=== PATIENT | female | born 1970 | race Caucasian/White ===

== ENCOUNTER 2016-10-13 17:58 | Inpatient (IN) ==
[2016-10-13 18:13] LABS: MANUAL DIFF NEEDED? NO
[2016-10-13 18:14] LABS: BASO% 0.4 % (0.0-0.8); EOS# 0.19 X1000 (0.0-0.7); EOS% 1.4 % (0.0-10.0); HEMATOCRIT 33.8 % (37.0-47.0); HEMOGLOBIN 11.6 g/dL (12.0-16.0); IMM GRAN# 0.02 X1000 (0.0-0.04); IMM GRAN% 0.1 % (0.0-0.5); LYMPH# 1.45 X1000 (1.2-3.4); LYMPH% 10.3 % (20.5-51.1); MCH 32.2 PG (27-31); MCHC 34.3 g/dL (33-37); MCV 93.9 FL (81-99); MONO# 1.36 X1000 (0.11-0.59); MONO% 9.7 % (1.7-9.3); MPV 11.1 FL (7.4-10.4); NEUT% 78.1 % (42.2-75.2); PLT 273 X1000 (130-400)
[2016-10-13 18:43] LABS: ALBUMIN 4.6 g/dL (3.5-5.0); CALCIUM 10.2 mg/dL (8.8-10.2); POTASSIUM 3.4 mmol/L (3.5-5.1); TOTAL BILIRUBIN 0.9 mg/dL (0.20-1.00)
[2016-10-13 18:54] LABS: FREE T4 1.73 ng/dL (0.93-1.70)
[2016-10-13 18:57] LABS: URINE CULTURE PL NEEDED? NO
[2016-10-13] MEDS ORDERED: NS 1,000 ML ONE (20:07)
[2016-10-13] MEDS ORDERED: XYLOCAINE 2% VISCOUS ONE ×2 (20:17→20:18)
[2016-10-13] MEDS ORDERED: NS 1,000 ML IV ONE (20:23)
[2016-10-13] MEDS ORDERED: XYLOCAINE 2% VISCOUS MT ONE (20:23)
[2016-10-13 20:36] LABS: UR AMPHETAMINES QUAL PRESUMPTIVE POSITIVE (NONE DETECT); UR BARBITUATES QUAL NONE DETECTED (NONE DETECT); UR BENZODIAZEPIN QUAL PRESUMPTIVE POSITIVE (NONE DETECT); UR COCAINE QUAL PRESUMPTIVE POSITIVE (NONE DETECT); UR MDMA QUAL NONE DETECTED (NONE DETECT); UR METHADONE QUAL NONE DETECTED (NONE DETECT); UR METHAMPHETAMINE QUAL PRESUMPTIVE POSITIVE (NONE DETECT)
[2016-10-13 20:37] LABS: BILIRUBIN URINE NEGATIVE (NEGATIVE); BLOOD URINE 4+ (NEGATIVE); CLARITY CLEAR (CLEAR); COLOR YELLOW; GLUCOSE URINE NEGATIVE (NEGATIVE); LEUKOCYTES URINE TRACE (NEGATIVE); NITRITE URINE NEGATIVE (NEGATIVE); PH URINE 6.5; PROTEIN URINE 2+(100 mg/dL) mg/dL (NEGATIVE); SP GRAVITY URINE 1.015; UR CANNABINOIDS QUAL PRESUMPTIVE POSITIVE (NONE DETECT); UR OPIATES QUAL PRESUMPTIVE POSITIVE (NONE DETECT); UR OXYCODONE QUAL NONE DETECTED (NONE DETECT); UR PCP QUAL NONE DETECTED (NONE DETECT); UR TCA QUAL NONE DETECTED (NONE DETECT); UROBILINOGEN URINE NORMAL
[2016-10-13 20:38] LABS: URINE SOURCE CLEAN CATCH
[2016-10-13 20:39] LABS: URINE EPITHELIAL CELLS <10 /HPF (<10); URINE RBC <10 /HPF (<10)
[2016-10-13 22:49] LABS: INR 0.96 (0.86-1.15); PROTIME 13.1 Seconds (12.1-15.5)
[2016-10-13 22:50] LABS: PTT PL 32.4 Seconds (22.6-43.9)
[2016-10-13 23:08] LABS: MAGNESIUM 2.2 mg/dL (1.5-2.7)
[2016-10-13 23:44] LABS: CK INDEX 0.8 (0.0-2.5); CK-MB 77.3 ng/mL (0.0-5.0)
[2016-10-14] MEDS ORDERED: NS 1,000 ML IV ONE (00:28)
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
[2016-10-14] MEDS: ZOFRAN IV PRN (01:31)
[2016-10-14] MEDS ORDERED: BLISTEX MEDICATED BERRY LIP BALM TOP PRN (02:05)
[2016-10-14 09:13] LABS: HEMATOCRIT 32.3 % (37.0-47.0); HEMOGLOBIN 10.8 g/dL (12.0-16.0); MCH 32.5 PG (27-31); MCHC 33.4 g/dL (33-37); MCV 97.3 FL (81-99); MPV 12.1 FL (7.4-10.4); RBC 3.32 XMIL (4.2-5.4)
--- NOTE | 2016-10-14 09:52 | Diag Imaging Result Document ---
PROCEDURE NAME: ABD/PELVIS/PULM ARTERIES - 10/13/2016 CT PULMONARY ANGIOGRAM WITH INTRAVENOUS CONTRAST, 10/13/2016: A CT dose reduction protocol was used. COMPARISON: None. TECHNIQUE: Axial CT images of the chest were obtained after administering intravenous contrast. Coronal MIP images were generated. FINDINGS: There is no pulmonary embolism. The lungs are clear and the heart size is normal. There is some extraluminal soft-tissue gas surrounding the esophagus and hypopharynx in the region of the larynx and thoracic inlet. This extends to the thyroid bed. No abnormal fluid collections. There is also some soft-tissue gas adjacent to the esophagus in the region of the subcarinal fossa and aortic arch. IMPRESSION: Small amount of soft-tissue gas surrounding the mid-upper esophagus. A small esophageal perforation is suspected. No fluid collections. CT ABDOMEN AND PELVIS WITH INTRAVENOUS CONTRAST, 10/13/2016: A CT dose reduction protocol was used. COMPARISON: None. FINDINGS: There are cholecystectomy clips. The liver, pancreas, spleen, adrenals, and kidneys are normal. No bowel obstruction or inflammation. Urinary bladder, uterus, and rectum are unremarkable. Bony structures are intact. IMPRESSION: Negative exam. [facility]
[2016-10-14 10:08] LABS: ALBUMIN 4.9 g/dL (3.5-5.0); CALCIUM 10.4 mg/dL (8.8-10.2); MAGNESIUM 2.2 mg/dL (1.5-2.7); POTASSIUM 3.5 mmol/L (3.5-5.1); TOTAL BILIRUBIN 0.6 mg/dL (0.20-1.00); TOTAL PROTEIN 8.1 g/dL (6.3-8.3)
[2016-10-14] MEDS: ZOSYN 3.375 GM/NS 3.375 GM/50 ML IVPB IV SCH ×3 (12:14→23:26)
[2016-10-14] MEDS: DIFLUCAN 150 MG/NS 150 MG/75 ML IVPB IV SCH (12:14)
--- NOTE | 2016-10-14 12:33 | Diag Imaging Result Document ---
PROCEDURE NAME: CT THORAX W/O CONTRAST - 10/14/2016 CT CHEST, 10/14/2016: A CT dose reduction protocol was used. COMPARISON: 10/13/2016 FINDINGS: Oral contrast was administered immediately prior to the exam. There is no evidence of contrast leak. The pneumomediastinum is stable from prior. No additional air leakage. The lungs are clear and the heart size is normal. IMPRESSION: Stable nonspecific mild pneumomediastinum. No evidence of contrast leak or additional air leak. [facility]
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
[2016-10-15] MEDS: ZOSYN 3.375 GM/NS 3.375 GM/50 ML IVPB IV SCH ×4 (04:52→23:05)
--- NOTE | 2016-10-15 10:08 | Diag Imaging Result Document ---
PROCEDURE NAME: CHEST-PORTABLE - 10/15/2016 ERECT AP PORTABLE CHEST, 10/15/2016 AT 0843 HOURS: FINDINGS: There is curvature of the thoracic spine with convexity to the right. There are nipple shadows bilaterally. The heart size and pulmonary vascularity are within normal limits. There is no evidence of pneumothorax or pleural fluid collection. The regional skeleton is otherwise apparently intact. IMPRESSION: No definite evidence of acute disease.
[2016-10-15] MEDS: DIFLUCAN 150 MG/NS 150 MG/75 ML IVPB IV SCH (11:58)
[2016-10-15] MEDS ORDERED: NS 1,000 ML ONE (12:13)
[2016-10-15] MEDS: NICODERM PATCH TD SCH (14:39)
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
--- NOTE | 2016-10-15 16:54 | Diag Imaging Result Document ---
PROCEDURE NAME: CT THORAX W/CONTRAST - 10/15/2016 CT THORAX WITH CONTRAST: FINDINGS: Exam performed with intravenous contrast. A dose reduction protocol was used. Compared with the without contrast exam of 10/14/2016. There is a small amount of pneumomediastinum. This has decreased compared to the previous exam. There is no abnormal mediastinal fluid collection identified. There are no obvious inflammatory changes identified in the mediastinum. There is mild scarring at the bilateral apices. There is a 4 mm faint nodular opacity at the anterior inferior right upper lobe which is stable. There is no consolidation or pleural effusion identified. There is no pneumothorax identified. IMPRESSION: 1. Small pneumomediastinum which has decreased compared to 10/14/2016. 2. Mild scarring at bilateral apices. Stable 4 mm faint nodular opacity at anterior inferior right upper lobe. 3. No pneumonia. No pneumothorax.
[2016-10-15] MEDS: ZOFRAN IV PRN ×2 (17:14→21:26)
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
--- NOTE | 2016-10-16 00:39 | PROGRESS NOTE ---
DATE: 10/15/2016 SUBJECTIVE: The patient without any new complaints. She does notice that she has got some swelling and soreness in her throat. Denies any chest pains otherwise. Denies any fevers or chills. Denies any other symptoms. Still states however that she is scared that she may hurt herself. OBJECTIVE: vital signs: Temperature 97, pulse 61, respiratory rate 19, BP 131/82, sat 100% on room air. General: Patient is awake, alert, oriented. She is currently in no real respiratory distress, pleasant to talk with. Neck: Supple. Cardiovascular: Regular rate. Chest: Relatively clear. LABS: Improved. WBCs down to 7, sodium 135, creatinine 1.2. Calcium 10.4. ASSESSMENT: 1. Acute hepatitis. AST 139, ALT 108, and unchanged. 2. Leukocytosis, resolved. 3. Anemia of chronic disease. 4. Hyponatremia, improved. 5. Hypokalemia, improved. 6. Esophageal perforation. CT today demonstrates small pneumomediastinum, which is actually decreased from yesterday. No pneumonia. PLAN: We will continue to watch her today. If she has no further symptoms in the morning, certainly can start allowing her to have some clear liquids, and we will continue to follow. We will recheck her labs in the morning. We will continue Zosyn prophylactically, as well as, Diflucan. Further orders as needed. cc: Jose Frias MD
[2016-10-16] MEDS: ZOSYN 3.375 GM/NS 3.375 GM/50 ML IVPB IV SCH ×3 (04:48→19:41)
[2016-10-16 06:34] LABS: MANUAL DIFF NEEDED? NO
[2016-10-16 06:45] LABS: BASO% 0.4 % (0.0-0.8); EOS# 0.25 X1000 (0.0-0.7); EOS% 4.6 % (0.0-10.0); HEMATOCRIT 35.3 % (37.0-47.0); HEMOGLOBIN 11.1 g/dL (12.0-16.0); IMM GRAN# 0.01 X1000 (0.0-0.04); IMM GRAN% 0.2 % (0.0-0.5); LYMPH# 0.96 X1000 (1.2-3.4); LYMPH% 17.6 % (20.5-51.1); MCH 31.4 PG (27-31); MCHC 31.4 g/dL (33-37); MONO% 9.2 % (1.7-9.3); MPV 10.8 FL (7.4-10.4); PLT 286 X1000 (130-400); RBC 3.53 XMIL (4.2-5.4)
[2016-10-16 07:38] LABS: AGAP 20; ALBUMIN 3.7 g/dL (3.5-5.0); ALKALINE PHOSPHATASE 45 U/L (32-104); BUN 8 mg/dL (8-22); CALCIUM 9.2 mg/dL (8.8-10.2); CHLORIDE 96 mmol/L (98-107); CK PROFILE 455 U/L (24-173); COSMO 275; GOT 69 U/L (10-30); GPT 50 U/L (10-36); SODIUM 140 mmol/L (136-145); TCO2 24 mmol/L (25-35); TOTAL PROTEIN 6.4 g/dL (6.3-8.3)
[2016-10-16 07:57] LABS: CK INDEX 0.8 (0.0-2.5); CK-MB 3.69 ng/mL (0.0-5.0)
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
[2016-10-16] MEDS: NICODERM PATCH TD SCH (12:48)
[2016-10-16] MEDS: 1/2 NS + KCL 20 MEQ 1,000 ML IV SCH ×2 (12:49→21:44)
[2016-10-16] MEDS: DIFLUCAN 150 MG/NS 150 MG/75 ML IVPB IV SCH (12:52)
[2016-10-17] MEDS: ZOSYN 3.375 GM/NS 3.375 GM/50 ML IVPB IV SCH ×2 (00:32→06:18)
[2016-10-17 03:16] LABS: MANUAL DIFF NEEDED? NO
[2016-10-17 03:19] LABS: BASO% 0.4 % (0.0-0.8); EOS# 0.29 X1000 (0.0-0.7); EOS% 4.3 % (0.0-10.0); HEMATOCRIT 33.3 % (37.0-47.0); HEMOGLOBIN 10.6 g/dL (12.0-16.0); IMM GRAN# 0.01 X1000 (0.0-0.04); IMM GRAN% 0.1 % (0.0-0.5); LYMPH# 1.31 X1000 (1.2-3.4); LYMPH% 19.6 % (20.5-51.1); MCH 31.6 PG (27-31); MCHC 31.8 g/dL (33-37); MCV 99.4 FL (81-99); MONO# 0.57 X1000 (0.11-0.59); MONO% 8.5 % (1.7-9.3); MPV 9.7 FL (7.4-10.4); NEUT% 67.1 % (42.2-75.2); PLT 314 X1000 (130-400); RBC 3.35 XMIL (4.2-5.4)
[2016-10-17 03:44] LABS: AGAP 9; ALBUMIN 3.9 g/dL (3.5-5.0); ALKALINE PHOSPHATASE 40 U/L (32-104); BUN 3 mg/dL (8-22); CALCIUM 8.9 mg/dL (8.8-10.2); CHLORIDE 99 mmol/L (98-107); COSMO 275; GOT 40 U/L (10-30); GPT 39 U/L (10-36); POTASSIUM 2.8 mmol/L (3.5-5.1); SODIUM 138 mmol/L (136-145); TCO2 30 mmol/L (25-35); TOTAL PROTEIN 6.1 g/dL (6.3-8.3)
[2016-10-17] MEDS ORDERED: KLOR-CON PO ONE (06:00)
[2016-10-17] MEDS: 1/2 NS + KCL 20 MEQ 1,000 ML IV SCH (06:18)
[2016-10-17] MEDS: NICODERM PATCH TD SCH (09:16)
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
[2016-10-17 14:30] VITALS: BP 113/89
[2016-10-17] MEDS ORDERED: AUGMENTIN PO SCH (21:00)
[2016-10-18] MEDS ORDERED: DIFLUCAN PO SCH (09:00)
== END 2016-10-17 14:35 | disposition home or self-care (01) ==
LOC: P.ED 17:58 → P.ICU 10-14 00:53 → SUATTDRO 10-14 00:53
PROVIDERS: ATTEND Internal Medicine

== ENCOUNTER 2018-08-29 19:24 | Inpatient (IN) ==
[2018-08-29 19:59] LABS: BASO# 0.05 X1000 (0.0-0.2); BASO% 0.4 % (0.0-0.8); EOS# 0.07 X1000 (0.0-0.7); EOS% 0.5 % (0.0-10.0); HEMOGLOBIN 9.2 g/dL (12.0-16.0); IMM GRAN# 0.04 X1000 (0.0-0.04); IMM GRAN% 0.3 % (0.0-0.5); LYMPH# 1.88 X1000 (1.2-3.4); LYMPH% 14.3 % (20.5-51.1); MCHC 31.7 g/dL (33-37); MCV 72.5 FL (81-99); MONO# 1.07 X1000 (0.11-0.59); MONO% 8.2 % (1.7-9.3); NEUT% 76.3 % (42.2-75.2); PLT 479 X1000 (130-400); RDW 20.1 % (11.5-14.5); WBC 13.11 X1000 (4.8-10.8)
[2018-08-29 20:02] LABS: BILIRUBIN URINE NEGATIVE (NEGATIVE); BLOOD URINE NEGATIVE (NEGATIVE); CLARITY CLEAR (CLEAR); COLOR YELLOW; GLUCOSE URINE NEGATIVE (NEGATIVE); KETONE URINE NEGATIVE (NEGATIVE); LEUKOCYTES URINE TRACE (NEGATIVE); NITRITE URINE NEGATIVE (NEGATIVE); PROTEIN URINE NEGATIVE (NEGATIVE); UROBILINOGEN URINE NORMAL
[2018-08-29 20:15] LABS: UR AMPHETAMINES QUAL NONE DETECTED (NONE DETECT); UR BARBITUATES QUAL NONE DETECTED (NONE DETECT); UR BENZODIAZEPIN QUAL NONE DETECTED (NONE DETECT); UR CANNABINOIDS QUAL NONE DETECTED (NONE DETECT); UR COCAINE QUAL NONE DETECTED (NONE DETECT); UR METHADONE QUAL NONE DETECTED (NONE DETECT); UR METHAMPHETAMINE QUAL NONE DETECTED (NONE DETECT); UR OPIATES QUAL PRESUMPTIVE POSITIVE (NONE DETECT); UR OXYCODONE QUAL NONE DETECTED (NONE DETECT); UR PCP QUAL NONE DETECTED (NONE DETECT); UR PROPOXYPHENE QUAL NONE DETECTED (NONE DETECT); UR TCA QUAL NONE DETECTED (NONE DETECT)
[2018-08-29 20:28] LABS: URINE WBC <10 /HPF (<10)
[2018-08-29 20:29] LABS: URINE BACTERIA 1+ /HFP; URINE CAST NONE SEEN /LPF; URINE CRYSTAL NONE SEEN /HPF; URINE EPITHELIAL CELLS <10 /HPF (<10); URINE SOURCE CLEAN CATCH; URINE YEAST NONE SEEN /HPF
[2018-08-29 20:37] LABS: AGAP 16; ALBUMIN 3.8 g/dL (3.5-5.0); ALKALINE PHOSPHATASE 408 U/L (32-104); BUN 11 mg/dL (8-22); CALCIUM 10.2 mg/dL (8.8-10.2); CHLORIDE 94 mmol/L (98-107); COSMO 267; CREATININE 0.7 mg/dL (0.5-0.9); ESTIMATED GFR > 60; GLUCOSE 123 mg/dL (70-104); GOT 105 U/L (10-30); GPT 61 U/L (10-36); LIPASE 33 U/L (13-60); POTASSIUM 4.3 mmol/L (3.5-5.1); SODIUM 133 mmol/L (136-145); TCO2 24 mmol/L (25-35); TOTAL PROTEIN 7.4 g/dL (6.3-8.3)
[2018-08-29 21:05] LABS: HYPOCHROM 2+; LYMPHS 13 % (21-51); MICROCYTOSIS 1+; MONO 8 % (1-9); SEGS 79 % (42-75)
[2018-08-29] MEDS ORDERED: NS 1,000 ML IV ONE (21:24)
[2018-08-29] MEDS ORDERED: MORPHINE IV ONE (21:54)
--- NOTE | 2018-08-29 22:00 | PROVIDER DOCUMENTATION ---
HPI-Abdominal Pain/GI Problem - General Chief Complaint: Abdominal Pain Stated Complaint: ABD PAIN Time Seen by Provider: 08/29/18 20:57 Allergies/Adverse Reactions: Patient Allergies Allergy/AdvReac Type Severity Reaction Status Date / Time No Known Allergies Allergy Verified 05/27/12 15:35 Home Medications: Home Medication List Medication Instructions Recorded Confirmed Last Taken Type NK [No Home Medications] 08/29/18 08/29/18 Unknown History - History of Present Illness-ABD Nature of Presenting Problems: reports that n/v x3 days now. constant pain of the left breast, left thorax pain, abd RUQ pain also for 3 days. unable to keep any PO food. +dry mouth. has taken ibuprofen for pain. denied any other problem. Review of Systems - Adult - REVIEW OF SYSTEMS - ADULT Constitutional: reports: see HPI Eyes: reports: no symptoms reported Ears, Nose, Mouth & Throat: reports: no symptoms reported Cardiovascular: reports: no symptoms reported Respiratory: reports: no symptoms reported Gastrointestinal: reports: no symptoms reported Genitourinary: reports: no symptoms reported Musculoskeletal: reports: no symptoms reported Integumentary: reports: no symptoms reported Neurological: reports: no symptoms reported Psychiatric: reports: no symptoms reported Endocrine: reports: no symptoms reported Hematologic/Lymphatic: reports: no symptoms reported Allergic/Immunologic: reports: no symptoms reported All Other Systems: Reviewed and Negative Past History - Adult - PAST MEDICAL HISTORY-ADULT Review of Records: reports: Old Records Reviewed, Nursing Assessment Review, Medications Reviewed, Social history reviewed & non-contributory. Major Childhood Illnesses: reports: denies history Cardiovascular: reports: denies history Respiratory: reports: denies history Gastrointestinal: reports: denies history Obstetrical/Gynecological: reports: denies history Genitourinary: reports: denies history Musculoskeletal: reports: denies history Neurological: reports: denies history Psychiatric: reports: anxiety Endocrine/Immune: reports: denies history Other Conditions: reports: denies history - PRIOR SURGERIES/PROCEDURES Surgical/Procedure History: reports: cholecystectomy - IMMUNIZATION STATUS Childhood Immunizations: See Nurse Assessment Flu Vaccine: See Nurse Assessment - FAMILY HISTORY Family History: reviewed, not pertinent - SOCIAL HISTORY Smoking: denies Substance Use: none/never Alcohol Use Frequency: never Living Situation: family Physical Exam-General - PHYSICAL EXAM-ADULT Initial Vital Signs Reviewed: Yes - CONSTITUTIONAL General Appearance: alert, no apparent distress, moderate distress (due to pain) , thin - EYES Eyes: PERRL/EOMI, pink conjunctivae - HEAD, EARS, NOSE, MOUTH & THROAT HENMT: normocephalic/atraumatic, moist mucous membranes, normal ENT inspection - NECK Neck: non-tender, full range of motion - RESPIRATORY Respiratory: chest non-tender, lungs clear, normal breath sounds - CARDIOVASCULAR Cardiovascular: normal peripheral pulses, regular rate, rhythm, no edema - CHEST (BREASTS) Chest/Breast: mass/lump noted (left breast) - GASTROINTESTINAL (ABDOMEN) Abdominal Exam: tenderness, hepatomegaly - MUSCULOSKELETAL Back Exam: no CVA tenderness, other (upper left thorax and left side thorax tenderness on palpation) Extremity: normal range of motion - SKIN Integumentary: normal color, normal turgor - PSYCHIATRIC Psych/Mental Status: tearful Progress - PLAN OF CARE/RESULTS Progress/Plan/Lab Results: Vital Signs - 8 hr 08/29/18 19:27 Temperature 98.5 F Pulse Rate 95 H Respiratory Rate 26 H Blood Pressure 139/91 O2 Sat by Pulse Oximetry 100 Laboratory Results - last 24 hr 08/29/18 08/29/18 08/29/18 19:40 19:40 19:50 WBC RBC Hgb Hct MCV MCH MCHC RDW Std Deviation Plt Count MPV Immature Gran % (Auto) Neut % (Auto) Lymph % (Auto) [place] % (Auto) Eos % (Auto) Baso % (Auto) Immature Gran # (Auto) Neut # (Auto) Lymph # (Auto) [place] # (Auto) Eos # (Auto) Baso # (Auto) Segmented Neutrophils Lymphocytes Monocytes Hypochromia Microcytosis Sodium Potassium Chloride Carbon Dioxide Anion Gap BUN Creatinine Estimated GFR/1.73 m2 BUN/Creatinine Ratio Glucose Calculated Osmolality Calcium Total Bilirubin AST ALT Alkaline Phosphatase Total Protein Albumin Globulin Albumin/Globulin Ratio Amylase 56 Lipase Urine Source CLEAN CATCH Urine Color YELLOW Urine Clarity CLEAR Urine pH 5.0 Ur Specific [place] 1.020 Urine Protein NEGATIVE Urine Ketones NEGATIVE Urine Blood NEGATIVE Urine Nitrite NEGATIVE Urine Bilirubin NEGATIVE Urine Urobilinogen NORMAL Urine Microscopic RBC Not Reportable Urine WBC TRACE A Urine Microscopic WBC <10 Ur Epithelial Cells <10 Urine Crystals NONE SEEN Urine Bacteria 1+ Urine Casts NONE SEEN Urine Yeast NONE SEEN Urine Glucose NEGATIVE Urine Opiates Screen PRESUMPTIVE POSITIVE A Ur Oxycodone Screen NONE DETECTED Urine Methadone Screen NONE DETECTED U Propoxyphene Qual NONE DETECTED Ur Barbituates Screen NONE DETECTED Ur Tricyclics Screen NONE DETECTED Ur Phencyclidine Scrn NONE DETECTED Ur Amphetamines Screen NONE DETECTED U Methamphetamines Scrn NONE DETECTED U Benzodiazepines Scrn NONE DETECTED Urine Cocaine Screen NONE DETECTED U Cannabinoids Screen NONE DETECTED 08/29/18 08/29/18 19:50 19:50 WBC 13.11 H RBC 4.00 L Hgb 9.2 L Hct 29.0 L MCV 72.5 L MCH 23.0 L MCHC 31.7 L RDW Std Deviation 20.1 H Plt Count 479 H MPV 10.0 Immature Gran % (Auto) 0.3 Neut % (Auto) 76.3 H Lymph % (Auto) 14.3 L [place] % (Auto) 8.2 Eos % (Auto) 0.5 Baso % (Auto) 0.4 Immature Gran # (Auto) 0.04 Neut # (Auto) 10.00 H Lymph # (Auto) 1.88 [place] # (Auto) 1.07 H Eos # (Auto) 0.07 Baso # (Auto) 0.05 Segmented Neutrophils 79 H Lymphocytes 13 L Monocytes 8 Hypochromia 2+ Microcytosis 1+ Sodium 133 L Potassium 4.3 Chloride 94 L Carbon Dioxide 24 L Anion Gap 16 BUN 11 Creatinine 0.7 Estimated GFR/1.73 m2 > 60 BUN/Creatinine Ratio 16 Glucose 123 H Calculated Osmolality 267 Calcium 10.2 Total Bilirubin 0.20 AST 105 H ALT 61 H Alkaline Phosphatase 408 H Total Protein 7.4 Albumin 3.8 Globulin 4.0 Albumin/Globulin Ratio 1.0 Amylase Lipase 33 Urine Source Urine Color Urine Clarity Urine pH Ur Specific [place] Urine Protein Urine Ketones Urine Blood Urine Nitrite Urine Bilirubin Urine Urobilinogen Urine Microscopic RBC Urine WBC Urine Microscopic WBC Ur Epithelial Cells Urine Crystals Urine Bacteria Urine Casts Urine Yeast Urine Glucose Urine Opiates Screen Ur Oxycodone Screen Urine Methadone Screen U Propoxyphene Qual Ur Barbituates Screen Ur Tricyclics Screen Ur Phencyclidine Scrn Ur Amphetamines Screen U Methamphetamines Scrn U Benzodiazepines Scrn Urine Cocaine Screen U Cannabinoids Screen Orders Category Date Time Status CT THORAX/ABD/PELVIS W/CON [CT] Stat Exams 08/29/18 21:53 Ordered AMYLASE [CHEM] Stat Lab 08/29/18 19:50 Completed CBC WITH DIFF [HEME] Stat Lab 08/29/18 19:50 Completed COMPREHENSIVE METABOLIC PANEL [CHEM] Stat Lab 08/29/18 19:50 Completed LIPASE [CHEM] Stat Lab 08/29/18 19:[address] W/POSS RFLX CULT [URINALYSIS] Stat Lab 08/29/18 19:40 Completed URINE CULTURE [RM] Routine Lab 08/29/18 20:30 Ordered URINE DRUG SCREEN PL Stat Lab 08/29/18 19:40 Completed 0.9% Sodium Chloride Inj [Ns] 1,000 ml Med 08/29/18 21:24 Active IV 999 mls/hr Morphine Med 08/29/18 21:54 Discontinued 4 mg IV NOW [facility] [address] , [address], [place] [address] Department of Imaging Patient: EDIL HERNANDEZ ADM Date: 08/29/18 MR#: [id number] : 1970 ADM Status: REG ER Age/Sex: 48/F Room/Bed: Loc: P.ED Ordering Physician: Radha Sharpe MD Family Physician: None,PCP Reason for Procedure: mets cancer ___ Signed EXAM: CT THORAX/ABD/PELVIS W/CON HISTORY: mets cancer TECHNIQUE: CT chest with intravenous contrast 2. CT abdomen and pelvis with intravenous contrast COMPARISON: Abdomen and pelvis 10/13/2016 chest from 10/15/2016 FINDINGS: CT chest: No pleural effusions. No cardiomegaly. No thoracic aortic aneurysm or dissection. There are several nodules scattered in the left upper and lower lobes which were not present on the prior study. Tiny nodules in the right upper lobe as well. No consolidation. No bronchiectasis. There are multiple lytic lesions throughout the chest and spine. Severe spinal stenosis at T8 due to encroachment into the canal. Abdomen and pelvis: There are multiple small scattered hypodense lesions in the liver. The gallbladder has been removed. Spleen is not enlarged. Normal pancreas, adrenal glands, and kidneys. No hydronephrosis. Normal aorta. Prominent stool throughout the colon. No bowel obstruction. The appendix has been removed. The urinary bladder is moderately distended and is normal. Normal uterus. There are scattered lytic lesions in the lumbar spine. IMPRESSION: Chest: 1. Bony metastases with severe spinal stenosis at T8 2. Scattered lung metastases Abdomen and pelvis: 1. Scattered liver metastases 2. Bony metastases. 3. Constipation 4. Cholecystectomy 5. Appendectomy This exam was performed using automated exposure control, adjustment of mA or kV according to patient size, and/or use of iterative reconstruction technique. Electronically signed by Juan Elaine 08/29/2018 10:52 PM 08/29/18 [id number] Interpreting Physician: Juan Elaine MD Dictated Date/Time: 08/29/18 [id number] cc: Radha Sharpe MD; None,PCP Result Diagrams: 08/29/18 19:50 08/29/18 19:50 Departure - Departure Date of Disposition Decision: 08/30/18 Time of Disposition Decision: 01:04 DIAGNOSIS: Metastasis Disposition: ADMITTED INPATIENT 09 Certified Medical Emergency: Emergent Condition: Fair - Critical Care Note This patient required my direct & personal management of CC.: No Attestation - Physician/ SAVANA Attestation Patient care was provided by Advanced Practice Provider:: No The physician spent face to face time with patient:: Yes Advanced Practice Provider documentation review:: Supervising physician onsite and consulted in the evaluation and care of this patient. The physician did have a face to face encounter with the patient.
--- NOTE | 2018-08-29 22:55 | Diag Imaging Result Doc PS360 ---
EXAM: CT THORAX/ABD/PELVIS W/CON HISTORY: mets cancer TECHNIQUE: CT chest with intravenous contrast 2. CT abdomen and pelvis with intravenous contrast COMPARISON: Abdomen and pelvis 10/13/2016 chest from 10/15/2016 FINDINGS: CT chest: No pleural effusions. No cardiomegaly. No thoracic aortic aneurysm or dissection. There are several nodules scattered in the left upper and lower lobes which were not present on the prior study. Tiny nodules in the right upper lobe as well. No consolidation. No bronchiectasis. There are multiple lytic lesions throughout the chest and spine. Severe spinal stenosis at T8 due to encroachment into the canal. Abdomen and pelvis: There are multiple small scattered hypodense lesions in the liver. The gallbladder has been removed. Spleen is not enlarged. Normal pancreas, adrenal glands, and kidneys. No hydronephrosis. Normal aorta. Prominent stool throughout the colon. No bowel obstruction. The appendix has been removed. The urinary bladder is moderately distended and is normal. Normal uterus. There are scattered lytic lesions in the lumbar spine. IMPRESSION: Chest: 1. Bony metastases with severe spinal stenosis at T8 2. Scattered lung metastases Abdomen and pelvis: 1. Scattered liver metastases 2. Bony metastases. 3. Constipation 4. Cholecystectomy 5. Appendectomy This exam was performed using automated exposure control, adjustment of mA or kV according to patient size, and/or use of iterative reconstruction technique. Electronically signed by Juan Elaine 08/29/2018 10:52 PM
[2018-08-30] MEDS ORDERED: DILAUDID IV ONE ×2 (01:02→02:40)
[2018-08-30] MEDS ORDERED: ZOFRAN IV ONE (01:02)
[2018-08-30] MEDS ORDERED: TORADOL PO ONE (02:47)
[2018-08-30] MEDS ORDERED: TORADOL IV ONE (03:07)
[2018-08-30] MEDS ORDERED: COMPAZINE IV PRN (03:27)
[2018-08-30 04:29] LABS: RETIC% 0.83 % (0.8-2.1); RETIC-HE 25.4 PG (28.2-36.6)
[2018-08-30] MEDS: DURAGESIC 25 MICROGM/HR PATCH TD SCH (04:32)
[2018-08-30] MEDS: NS 1,000 ML IV SCH ×3 (04:32→21:21)
[2018-08-30] MEDS: OXY IR PO PRN ×3 (04:33→18:58)
[2018-08-30] MEDS: TYLENOL PO SCH ×4 (04:33→21:21)
[2018-08-30] MEDS: LOVENOX SUBQ SCH (04:34)
[2018-08-30 04:56] LABS: MAGNESIUM 1.6 mg/dL (1.5-2.7)
[2018-08-30 05:16] LABS: FERRITIN 52 ng/mL (13-150)
[2018-08-30] MEDS: PRILOSEC PO SCH (05:59)
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
[2018-08-30] MEDS: DILAUDID IV PRN ×5 (07:10→21:22)
[2018-08-30] MEDS: MIRALAX PO SCH ×2 (10:10→21:21)
[2018-08-30] MEDS: NAPROSYN PO SCH ×2 (10:10→21:21)
[2018-08-30] MEDS: ZOFRAN IV PRN (14:41)
[2018-08-30] MEDS ORDERED: DECADRON IV ONE (16:13)
[2018-08-30] MEDS: VENOFER 200 MG in NS 100 ML IV SCH (18:13)
--- NOTE | 2018-08-30 18:43 | PROGRESS NOTE ---
DATE: 08/30/2018 SUBJECTIVE: Today, Ms. Shook refers to be hurting a lot, especially in the mid back. She also says she feels like electrical shocks into her legs. OBJECTIVE: Vital signs: Blood pressure is 126/81, pulse of 79, respiration is 18, temperature is 98.0. General: Ms. Shook is a 48-year-old, female who is in bed, who was not in any cardiopulmonary distress. Mucosa is pink and moist. Anicteric. Acyanotic. Neck: Supple. Chest: Clear to auscultation. Cardiovascular: Regular rate and rhythm. Abdomen: Soft, nontender. Bowel sounds present. Extremities: No pedal edema. Distal pulses are present. YARD ASSISTANT: Patient is awake, alert, oriented. She is able to lift both legs against gravity. However, Lasegue maneuver with each leg raising is positive with each one of them. The patient is not able to discriminate between gross and fine pinprick sensation. When I did vibration sense in both lower extremities were remarkably low and Babinski in both were downgoing. I was not able to elicit any sensory level, but it appears that she has bilateral lower extremity paresthesias. Integumentary: The patient also has a large palpable mass in the left breast, which almost involved the entire breast tissue. The nipple looks remarkably normal. There is no overlying skin changes noted and there was no drainage from the nipple. LABORATORY DATA: WBC is 13.11, hemoglobin is 9.2, platelet count of 479. Chemistry is also reviewed. The patient's ferritin is 52. IMAGING STUDIES: A CT scan of the chest, abdomen and pelvis shows bony metastases with severe spinal stenosis at T8. There is also scattered lung metastases in the abdomen. There is scattered liver metastasis. There is bony metastases. There is constipation, cholecystectomy and appendectomy. ASSESSMENT: 1. Large left breast mass with metastatic appearing lesions to both lungs, liver and bones; all suggestive of metastatic breast cancer. Hematology-Oncology have been consulted. I have personally spoken with Dr. Yi. 2. Intractable pain, secondary to the bony metastases. Patient is currently on opioid for pain management. 3. Severe spinal stenosis at T8. The CT scan reports severe spinal stenosis at T8 due to encroachment into the canal. The patient does have some paresthesias in the lower extremities. Occasionally, she refers to have some shocking sensation coming down in her legs. I was not able to elicit any sensory level and the patient denies having any issues passing her urine. I have discussed this with Hematology-Oncology and specifically with Dr. Yi. Recommendation is to start the patient on steroids and wait for Radiation Oncology to evaluate the patient on Saturday. I have also reached out to Neurosurgery in [place] and I am waiting a call from them. For now, the patient has been started on steroids, dexamethasone and surgery has also been consulted for possible biopsy. 4. Microcytic anemia, secondary to iron deficiencies. This will be replaced. 5. Clinical volume depletion. Will continue with gentle IV hydration. 6. Transaminitis, secondary to metastatic liver disease. cc: Kervin Armstrong MD Addendum: I have spoken to Dr. Mckenzie, neurosurgeon in [place]. He has looked at the images from his end. He thinks the lesion is anterior and that it will be hard to do any surgical procedure now. However he did say MRI needed to to be done of the entire spine. I told him We cant do MRI until Saturday He recommends to get oncology involve and I told him Dr Smith was on board. I told him my findings on physical exams: that there is no sensory level nor sphincter issues but some paresthesias. He recommends steroids which had already been started. He also recommends to call him back on Saturday after the MRIs so he can take a look at the images. He recommends to get back to him or his team ANNALISA if patient neurological condition changes. I have notified her nurse-- Ms Cadena. ROSITA
[2018-08-30] MEDS ORDERED: DECADRON PO SCH (20:00)
--- NOTE | 2018-08-30 20:13 | GENERAL SURGERY CONSULTATION ---
DATE: 08/30/2018 REASON FOR CONSULTATION: Breast mass. HISTORY OF PRESENT ILLNESS: This is a 48-year-old female who is admitted with a 2-week history of worsening chest pain radiating through her back. She also reports a left breast mass which has been there for many years and has been growing. She has never had it biopsied. She does report bilateral white nipple discharge. She has never had radiation treatment to her chest. She does have an aunt who had breast cancer. PAST MEDICAL HISTORY: Drug abuse, suicide attempts, schizophrenia, anxiety, depression. PAST SURGICAL HISTORY: Cholecystectomy, ovarian cystectomy, endometriosis surgery. FAMILY HISTORY: As above in HPI. SOCIAL HISTORY: She smokes a pack of cigarettes per day. Denies alcohol use, but has a multisubstance abuse history. HOME MEDICATIONS: None. ALLERGIES: No known drug allergies. REVIEW OF SYSTEMS: Ten systems reviewed and negative except as above, as well as she does have a tendency to fall and has had some sensation changes in her leg. I believe she said her left. PHYSICAL EXAMINATION: Temperature 98 degrees, pulse 79, blood pressure 126/81, O2 saturation 97%. General: She is a thin, somewhat undernourished-appearing female who looks her stated age, in no acute distress, but is somewhat anxious and tearful. HEENT: Normocephalic, atraumatic. Extraocular muscles intact. Pupils equal, round and reactive to light. Sclerae anicteric. Neck supple. No thyromegaly. CV: Regular rate and rhythm. Respiratory: Bilateral breath sounds. No work of breathing. Gastrointestinal soft, nontender, nondistended. On breast exam she has a large, fist-sized mass that is hard in the left breast, taking up most of all of the breast involving all quadrants. It is surprisingly somewhat mobile and does not appear to be attached to the chest wall. There is also a palpable lymph node in the left axilla. The right breast is somewhat nodular. There is a firm asymmetric density in the superior right breast from about 10 o'clock to 2 o'clock. I do not detect any lymphadenopathy in the right axilla. Extremities: No clubbing, cyanosis or edema. Skin warm and dry. No rash. LABORATORY DATA: White blood cell count 13, hemoglobin 9.2, hematocrit 29, platelet count 479,000. Electrolytes reviewed and unremarkable, except for mild elevation of LFTs: AST 105, ALT 61, alkaline phosphatase 408, total bilirubin 0.2. DIAGNOSTIC DATA: A chest, abdomen and pelvis CT scan shows multiple bony metastases which are lytic lesions throughout the chest and spine, with severe stenosis at T8 due to encroachment of the canal. There are multiple metastatic lesions in the liver as well as the lungs. The breasts were not well imaged. ASSESSMENT AND PLAN: A 48-year-old female with large left breast mass and lymphadenopathy, possible right breast mass and multiple metastatic lesions with spinal cord compression at T8. The neurosurgeon has been consulted at [place]. We are awaiting his evaluation. When that is complete, I am available for a needle biopsy of the left breast mass. We will follow that with a mammogram. cc: Stevenson Dudley MD
[2018-08-30] MEDS: LACTULOSE PO SCH (21:29)
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
[2018-08-30] MEDS: HUMULIN R SUBQ SCH (21:34)
[2018-08-30] MEDS: ATIVAN PO SCH (21:38)
[2018-08-31] MEDS: DILAUDID IV PRN ×6 (01:07→22:27)
[2018-08-31] MEDS: OXY IR PO PRN ×2 (03:10→23:40)
[2018-08-31] MEDS: TYLENOL PO SCH ×4 (03:10→22:23)
[2018-08-31] MEDS: DECADRON PO SCH ×4 (03:11→22:24)
[2018-08-31] MEDS: HUMULIN R SUBQ SCH ×4 (06:22→22:33)
[2018-08-31] MEDS: PRILOSEC PO SCH (06:22)
[2018-08-31] MEDS: MOVANTIK PO SCH (06:22)
[2018-08-31] MEDS: LOVENOX SUBQ SCH (06:22)
[2018-08-31 07:42] LABS: BASO# 0.01 X1000 (0.0-0.2); BASO% 0.1 % (0.0-0.8); HEMATOCRIT 25.9 % (37.0-47.0); HEMOGLOBIN 7.9 g/dL (12.0-16.0); LYMPH# 0.96 X1000 (1.2-3.4); MCH 22.8 PG (27-31); MCHC 30.5 g/dL (33-37); MCV 74.6 FL (81-99); MONO# 0.23 X1000 (0.11-0.59); MONO% 2.6 % (1.7-9.3); MPV 10.5 FL (7.4-10.4); NEUT# 7.56 X1000 (1.4-6.5); NEUT% 86.3 % (42.2-75.2); PLT 401 X1000 (130-400); RBC 3.47 XMIL (4.2-5.4); RDW 19.9 % (11.5-14.5); WBC 8.76 X1000 (4.8-10.8)
[2018-08-31 08:05] LABS: AGAP 12; ALB/GLOB RATIO 0.9; ALBUMIN 3.3 g/dL (3.5-5.0); ALKALINE PHOSPHATASE 304 U/L (32-104); BUN 8 mg/dL (8-22); CALCIUM 8.9 mg/dL (8.8-10.2); CHLORIDE 97 mmol/L (98-107); COSMO 265; CREATININE 0.5 mg/dL (0.5-0.9); ESTIMATED GFR > 60; GLUCOSE 129 mg/dL (70-104); GOT 84 U/L (10-30); GPT 47 U/L (10-36); POTASSIUM 4.6 mmol/L (3.5-5.1); SODIUM 132 mmol/L (136-145); TCO2 23 mmol/L (25-35); TOTAL BILIRUBIN 0.23 mg/dL (0.20-1.00)
[2018-08-31 08:28] LABS: ANISOCYTOSIS OCCASIONAL; BANDS 2 % (0-1); HYPOCHROM OCCASIONAL; LYMPHS 12 % (21-51); MICROCYTOSIS OCCASIONAL; MONO 6 % (1-9); SEGS 80 % (42-75)
[2018-08-31] MEDS: VENOFER 200 MG in NS 100 ML IV SCH (09:44)
[2018-08-31] MEDS: MIRALAX PO SCH ×2 (09:45→22:23)
[2018-08-31] MEDS: NAPROSYN PO SCH ×2 (09:45→22:23)
[2018-08-31] MEDS: LACTULOSE PO SCH ×2 (09:45→22:23)
--- NOTE | 2018-08-31 10:28 | GENERAL SURGERY CONSULTATION ---
DATE: 08/31/2018 SUBJECTIVE: The patient has had no acute events overnight. She has remained here and is awaiting evaluation by radiation oncology for her spinal stenosis. OBJECTIVE: Vital Signs: She is afebrile. Vital signs are stable. General: She is awake, alert, oriented x3. No acute distress. Breasts: Examination was deferred today. ASSESSMENT/PLAN: A 48-year-old female with a left breast mass, likely metastatic to multiple locations. If she remains in the hospital here tomorrow, I will plan a percutaneous core needle biopsy at the bedside. I discussed this with her and she is in agreement to proceed. cc: Stevenson Dudley MD
--- NOTE | 2018-08-31 15:28 | PROGRESS NOTE ---
DATE: 08/31/2018 SUBJECTIVE: This morning, Ms. Shook refers to be doing fairly okay. She denies any new complaints except persistent back pain. No neurological deficits and no sphincter abnormalities. Ms. Shook refers that she feels some numbness every now and then in both lower extremities but it is not constant. OBJECTIVE: Vital signs: Blood pressure is 138/74, pulse 87, respirations 18, temperature 97.8 degrees. General: Ms. Shook is a 48-year-old female. She is in bed. She is not in any cardiopulmonary distress. HEENT: Mucosa is pink and moist. Anicteric. Acyanotic. Neck: Supple. Chest: Clear to auscultation. No crepitations. No rhonchi. Cardiovascular: Regular rate and rhythm. No murmurs. No rubs. No gallops. GI: Abdomen is soft, nontender. Bowel sounds present. Extremities: No pedal edema. Distal pulses present. ADJUNCT INSTRUCTOR: Patient is awake, alert, and oriented. She is able to move both lower extremities against gravity and against resistance. Sensation is fairly unremarkable and Babinski both downward going. LABORATORY DATA: WBC is 8.76, hemoglobin is 7.9, platelet count of 401,000. Chemistry is also reviewed, unremarkable. Urine culture showed no pathogenic growth. ASSESSMENT: 1. Large left breast mass with multiple lesions in the lungs, bones, and liver, all suggestive of metastatic cancer presumably from the breast. The patient is pending a core biopsy tomorrow from Surgery. Hematology/Oncology and Radiation Oncology have all been consulted and patient will be seen tomorrow. 2. Intractable mid-thoracic pain secondary to bony metastases. We will continue with adequate pain management and the patient will be evaluated by Radiation Oncology tomorrow. 3. Severe spinal stenosis at T8 on CT scan. MRIs have all been ordered. The patient is currently on steroids. I did not find any remarkable neurological abnormality on her physical exam today. The patient was sitting up, legs folded up, and she is able to move extremities without any complaints. I was able to reach out to Neurosurgery yesterday and they did recommend also to continue steroids and get back with them if her condition gets any worse. 4. Microcytic anemia secondary to iron deficiency. This is being replaced. 5. Clinical volume depletion. Patient is on gentle IV fluids. 6. Transaminitis, likely due to metastatic liver disease. PLAN: So in general, Ms. Shook is a 48-year-old female who has been admitted since yesterday because of generalized pain but specifically to the back. Imaging studies have revealed metastatic lesions in the lungs, bones, and liver. The patient has a dense mass in the left breast which we think is the source of the metastatic lesions. She is pending a core biopsy tomorrow by Dr. Dudley. The patient is also pending evaluation by Radiation Oncology tomorrow to help with pain management, especially to the back. She is pending MRIs especially of the thoracic spine to rule out any concrete cord abnormalities. We will follow up closely with the recommendations from Oncology and Radiation Oncology. Of note, yesterday when I reached out to Dr. Mckenzie, the neurosurgeon in [place], he did make mention that if Ms. Shook's neurological status changes, we should notify them immediately. cc: Kervin Armstrong MD MTDD
[2018-08-31] MEDS: ATIVAN PO SCH (22:23)
[2018-08-31] MEDS: LEXAPRO PO SCH (22:24)
[2018-09-01] MEDS: DECADRON PO SCH ×4 (04:34→23:41)
[2018-09-01] MEDS: TYLENOL PO SCH ×4 (04:34→23:41)
[2018-09-01] MEDS: DILAUDID IV PRN ×3 (04:34→23:42)
[2018-09-01] MEDS: OXY IR PO PRN ×3 (06:08→18:19)
[2018-09-01] MEDS: PRILOSEC PO SCH (06:09)
[2018-09-01] MEDS: HUMULIN R SUBQ SCH ×3 (06:09→17:02)
[2018-09-01] MEDS: MOVANTIK PO SCH (06:09)
[2018-09-01] MEDS: LOVENOX SUBQ SCH (06:09)
[2018-09-01 07:25] LABS: BASO# 0.01 X1000 (0.0-0.2); BASO% 0.1 % (0.0-0.8); HEMATOCRIT 26.9 % (37.0-47.0); HEMOGLOBIN 8.2 g/dL (12.0-16.0); IMM GRAN# 0.16 X1000 (0.0-0.04); IMM GRAN% 0.9 % (0.0-0.5); LYMPH# 1.32 X1000 (1.2-3.4); LYMPH% 7.2 % (20.5-51.1); MCH 22.7 PG (27-31); MCHC 30.5 g/dL (33-37); MCV 74.5 FL (81-99); MONO# 1.04 X1000 (0.11-0.59); MONO% 5.7 % (1.7-9.3); MPV 10.5 FL (7.4-10.4); NEUT# 15.83 X1000 (1.4-6.5); NEUT% 86.1 % (42.2-75.2); PLT 466 X1000 (130-400); RBC 3.61 XMIL (4.2-5.4); RDW 20.1 % (11.5-14.5); WBC 18.36 X1000 (4.8-10.8)
[2018-09-01 07:40] LABS: AGAP 11; ALBUMIN 3.7 g/dL (3.5-5.0); ALKALINE PHOSPHATASE 314 U/L (32-104); BUN 12 mg/dL (8-22); CALCIUM 9.5 mg/dL (8.8-10.2); CHLORIDE 97 mmol/L (98-107); COSMO 273; CREATININE 0.6 mg/dL (0.5-0.9); ESTIMATED GFR > 60; GLUCOSE 126 mg/dL (70-104); GOT 86 U/L (10-30); GPT 49 U/L (10-36); POTASSIUM 4.5 mmol/L (3.5-5.1); SODIUM 136 mmol/L (136-145); TCO2 28 mmol/L (25-35); TOTAL BILIRUBIN 0.22 mg/dL (0.20-1.00); TOTAL PROTEIN 7.4 g/dL (6.3-8.3)
[2018-09-01] MEDS ORDERED: ATIVAN IV PRN (08:26)
[2018-09-01] MEDS: NAPROSYN PO SCH ×2 (08:27→23:41)
[2018-09-01] MEDS: LACTULOSE PO SCH ×2 (08:27→23:41)
[2018-09-01] MEDS: VENOFER 200 MG in NS 100 ML IV SCH (08:27)
[2018-09-01] MEDS: MIRALAX PO SCH ×3 (08:28→23:41)
[2018-09-01] MEDS: ATIVAN PO SCH (08:45)
[2018-09-01 08:51] LABS: BANDS 2 % (0-1); MONO 2 % (1-9); SEGS 96 % (42-75)
[2018-09-01 08:52] LABS: ANISOCYTOSIS 2+; HYPOCHROM 2+; MICROCYTOSIS 2+
[2018-09-01] MEDS ORDERED: XYLOCAINE-MPF 1% INJ ONE (10:02)
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
[2018-09-01] MEDS ORDERED: ATIVAN IV ONE ×2 (10:34→12:29)
[2018-09-01] MEDS ORDERED: ATIVAN ONE (11:11)
--- NOTE | 2018-09-01 11:24 | Diag Imaging Result Doc PS360 ---
3D DIAG BILATERAL, US BREAST COMPLETE UNILAT-LT 09/01/2018 Left breast ultrasound TECHNIQUE: Computer aided detection imaging was used. COMPARISON: None The breasts are dense. FINDINGS: The left breast is very dense with a somewhat lobulated area of relatively increased density medially containing numerous pleomorphic microcalcifications. There are two calcified nodules on the lateral aspect of the breast which are presumably related to benign disease. There are no dominant masses or grouped microcalcifications in the right breast to suggest malignancy. Ultrasonography was performed on the left demonstrating a poorly defined hypoechoic mass throughout most of the left breast with internal color Doppler flow. In addition to this there is an 11 mm pathologic-appearing left axillary node and a smaller 9 mm node with a fatty hilus more inferiorly. IMPRESSION: Highly suspicious lesion extensively within the left breast with pathological axillary adenopathy. ACR BI-RADS CATEGORY 5: HIGHLY SUGGESTIVE OF MALIGNANCY, APPROPRIATE ACTION SHOULD BE TAKEN. BIRAD5 NOTE: This facility is accredited by the [employer] for Mammography. A mammogram report should not delay biopsy if a dominant or clinically suspicious mass is present. Some cancers are not identified by mammography. Adenosis and dense breasts may obscure any underlying neoplasm. Electronically signed by Twan Peraza 09/01/2018 11:21 AM
[2018-09-01] MEDS ORDERED: BENADRYL IV PRN (12:30)
[2018-09-01] MEDS ORDERED: BENADRYL IV ONE (12:30)
[2018-09-01] MEDS ORDERED: SEROQUEL PO ONE (12:31)
--- NOTE | 2018-09-01 14:54 | Diag Imaging Result Doc PS360 ---
EXAM: BONE SCAN, TOTAL BODY HISTORY: Bony mets TECHNIQUE: Nuclear medicine bone scan COMPARISON: None. FINDINGS: 31.6 mCi MDP administered. Whole-body bone scan images obtained. There is symmetric activity in the upper and lower extremities. Normal activity in the skull and pelvis. Focal increased activity in three locations: A single mid to lower thoracic vertebra, a single mid posterior lower right rib, and either an upper lateral posterior right rib or right mid scapula. IMPRESSION: Focal activity in the lower spine consistent with the abnormality seen on the recent CT. The bone scan likely underestimates the amount of bony metastases. Electronically signed by Juan Elaine 09/01/2018 2:52 PM
--- NOTE | 2018-09-01 18:28 | OPERATIVE NOTE ---
PROCEDURE DATE: 09/01/2018 PREOPERATIVE DIAGNOSIS: Left breast mass. POSTOP DIAGNOSIS: Left breast mass. PROCEDURE: Core needle biopsy of left breast mass. SURGEON: Stevenson Dudley MD. ESTIMATED BLOOD LOSS: 5 mL. COMPLICATIONS: None apparent. SPECIMENS: Portions of left breast mass. TECHNIQUE: She was laid supine on her hospital bed. The skin was prepped with an alcohol swab. 1% lidocaine was used to anesthetize the skin. An 11 blade was used to make a small stab incision. The core biopsy needle was then advanced into the palpable mass and 3 separate cores were obtained. Steri-Strip dressing followed by gauze and tape were placed. She tolerated this well. There were no apparent complications. cc: Stevenson Dudley MD
--- NOTE | 2018-09-01 18:44 | PROGRESS NOTE ---
DATE: 09/01/2018 INTERVAL HISTORY: The patient with likely widely metastatic breast cancer. Workup in progress. Had significant anxiety this morning, which increased further during attempted MRI. Ativan was given but continued to have issues and MRI was eventually delayed. Giving additional medication with Ativan, Seroquel and Benadryl to attempt to calm the patient enough to get test done. Also planning breast biopsy and bone scans today. Aside from anxiety and persistent back pain there is no new complaints, no acute events overnight. Still with no complaints of weakness, numbness or other new neurologic finding. No loss of bowel or bladder control. REVIEW OF SYSTEMS: A 12-point review of systems negative except as per interval history. LABS: WBC 18.3, hemoglobin 8.2, hematocrit 26.9, platelets 456,000. Sodium 136, potassium 4.5, chloride 97, bicarbonate 28, BUN 12, creatinine 0.6, glucose 135, AST 86, ALT 49, alkaline phosphatase 314, bilirubin 0.22, albumin 3.7, total protein 7.4. Urinalysis unremarkable. Urine drug screen only positive for opiates. IMAGING: Breast ultrasound with high suspicious lesion extensively within the left breast with pathologic axillary adenopathy highly suggestive of malignancy. Initial CT chest, abdomen and pelvis with bony metastases to spine with stenosis at T8, scattered lung metastases, liver metastases, and other bony metastases. PHYSICAL EXAMINATION: Vital Signs: T-max 98.2, pulse 85, respirations 20, blood pressure 154/89, O2 sat 97% on room air. General: Moderately anxious appearing. Speech rapid, but not quite to the point of being pressured. Vitals as above. HEENT: Normocephalic and atraumatic. Moist mucous membranes. Neck: No cervical adenopathy. Cardiovascular: Slightly tachycardic. Regular rhythm. No murmurs, rubs or gallops. Pulmonary: Clear to auscultation bilaterally. No wheezing, rales or rhonchi noted. Abdomen: Soft, nontender. Bowel sounds positive. Slight hepatomegaly. Extremities: Peripheral pulses decreased but present. No clubbing or cyanosis. Neurologic: Cranial nerves grossly intact. No focal deficits identified. The patient ambulates without difficulty. No ataxia. Strength full throughout. Psychiatric: Anxious appearing as above. Speech rapid but appropriate. Intermittently somewhat tearful. Awake, alert and oriented x3. Skin: No new rashes or lesions identified. ASSESSMENT AND PLAN: 1. Large left breast mass with widespread metastases to lungs, bones, and liver: Oncology on board and I am attempting to get MRI of the spine to help plan likely radiation oncology treatment. Core biopsy at some point today by Surgery. If testing can all be performed today and lab work remains fairly unremarkable then may be able to be discharged tomorrow for further outpatient workup. 2. Anxiety and schizophrenia: The patient with some psychiatric history, but her recent diagnosis has seemed to cause her significant anxiety. Given a Ativan this morning with limited response. Given further Ativan, Benadryl and low-dose Seroquel to attempt to bring her anxiety under control enough to obtain above testing. We will give Seroquel as a 1-time dose, but if she has good response may continue that. No hallucinations or other obviously schizophrenic behavior here, but does reportedly have a diagnosis of schizophrenia. Further treatment based on response. 3. Significant back pain: Likely related to bony metastases. We will continue to adjust pain medications as needed. WE will likely get palliative radiation to this areas the results are obtained. 4. T8 spinal stenosis on CT: MRI is pending as above. The patient is on steroids. Does not appear to have any focal neurologic abnormality, and has no new neurologic complaints. Neurosurgery was contacted 2 days ago and they recommended to continue steroids, and to recontact them if any acute neurologic issue develops, but did not suggest immediate need for surgery. 5. Anemia: May be related to underlying malignancy but also iron deficient. Replacing iron. 6. Dehydration, improved with intravenous fluids: We will continue gentle intravenous fluids for now. 7. Transaminitis likely due to metastatic liver disease. No need for acute intervention at this time. 8. Deep vein thrombosis prophylaxis. Sequential compression devices if the patient remains in bed. Otherwise on hold for biopsy.
[2018-09-01] MEDS: LEXAPRO PO SCH (23:41)
[2018-09-01] MEDS: ZOFRAN IV PRN (23:41)
[2018-09-02] MEDS: HUMULIN R SUBQ SCH ×5 (00:08→21:27)
[2018-09-02] MEDS: DURAGESIC 25 MICROGM/HR PATCH TD SCH (02:34)
[2018-09-02] MEDS: OXY IR PO PRN (02:34)
[2018-09-02] MEDS: PRILOSEC PO SCH ×2 (05:10→06:13)
[2018-09-02] MEDS: LOVENOX SUBQ SCH ×2 (05:10→06:12)
[2018-09-02] MEDS: DECADRON PO SCH ×3 (05:10→18:17)
[2018-09-02] MEDS: DILAUDID IV PRN ×3 (05:10→21:18)
[2018-09-02] MEDS: TYLENOL PO SCH ×4 (05:11→21:27)
[2018-09-02] MEDS: MOVANTIK PO SCH ×2 (05:13→06:13)
[2018-09-02] MEDS: ATIVAN IV PRN ×2 (09:06→22:07)
[2018-09-02] MEDS: MIRALAX PO SCH ×2 (09:07→21:27)
[2018-09-02] MEDS: LACTULOSE PO SCH ×2 (09:07→21:27)
[2018-09-02] MEDS: VENOFER 200 MG in NS 100 ML IV SCH (09:07)
[2018-09-02] MEDS: NAPROSYN PO SCH ×2 (09:08→21:27)
--- NOTE | 2018-09-02 10:52 | CONSULTATION ---
DATE OF CONSULTATION: 09/01/2018 REASON FOR CONSULTATION: Breast cancer with bone metastasis and spinal cord compression. HISTORY OF PRESENT ILLNESS: Ms. Shook is a 48-year-old female who reports a multiple year history of a mass in the left breast. She reports noticing it as early as 1991 when she gave to her daughter. She never sought medical intervention. She presented to the emergency room on the of this month with complaints of left breast pain and midback pain as well as bilateral rib and flank pain. Upon admission, she was found to have a very large breast mass, and workup revealed multiple lesions in the lungs, bone and liver, all suggestive of metastatic cancer. On CT scan she was found to have severe spinal stenosis on T8 due to tumor. An MRI was obtained earlier today, but is not yet available for my review. She was placed on steroids. She had a biopsy earlier today. I have been consulted for consideration of palliative radiation therapy. PAST MEDICAL HISTORY: Schizophrenia. Anxiety. Depression. History of alcohol abuse. History of polysubstance abuse. Ovarian cyst. Skin cancer. Bright's disease. PAST SURGICAL HISTORY: Cholecystectomy. Ovarian cyst removal. Tonsillectomy. Excision of several cancerous moles. FAMILY HISTORY: Patient's maternal grandmother and several aunts had breast cancer. MEDICATIONS ON ADMISSION: None. ALLERGIES: No known drug allergies. SOCIAL HISTORY: The patient smokes a pack of cigarettes per day. Denies alcohol or drug use at this time. PHYSICAL EXAMINATION: General: Ms. Shook is lying comfortably in bed. She is confused and lethargic, and she has just returned from procedures and is still feeling the effects of the medications. Vitals: Per the hospital record. HEENT: Normocephalic, atraumatic. Sclerae are anicteric. Extraocular movements are intact. Neck: Supple. Lungs: Clear bilaterally. Heart: Regular in rate. Abdomen: Nondistended. Extremities: Reveal no clubbing, cyanosis, or edema. Neurological: Reveals no gross focal deficits. The patient was not alert enough to cooperate with a thorough examination. ASSESSMENT/PLAN: Presumed metastatic breast cancer. Biopsy results pending. I would like to review the patient's MRI before making final treatment recommendations, but agree with the recommendation for at least palliative radiation therapy to the T8 region. I have discussed this with the patient's family and they are all in agreement with proceeding with treatment. I will go ahead and get a simulation scheduled for Saturday and hopefully treatment will get started Saturday. cc: Karina Pearson MD
--- NOTE | 2018-09-02 13:31 | Diag Imaging Result Doc PS360 ---
EXAM: MRI BRAIN W/WO CONTRAST INDICATION: suspected metastatic breast cancer COMPARISON: None. FINDINGS: There is no evidence of acute infarct. There are a couple of tiny T2/FLAIR hyperintense foci in the centrum semiovale on the right suggesting trace white matter microangiopathy. The deep white matter signal is unremarkable, otherwise. There is no discrete intracranial mass, mass effect, or intracranial hemorrhage. There is no evidence of abnormal intracranial enhancement. There is bilateral maxillary sinus mucosal disease. Surrounding soft tissues and bony structures are unremarkable, otherwise. IMPRESSION: No evidence of intracranial metastatic disease. Electronically signed by Darrick Chiang 09/02/2018 1:29 PM
--- NOTE | 2018-09-02 13:35 | Diag Imaging Result Doc PS360 ---
MRI THORACIC SPINE W/WO CON - 09/01/2018 INDICATION: T8 lesion encroaching the canal COMPARISON: CT from 08/29/2018 FINDINGS: Alignment is anatomic. There is a high-grade compression fracture at apparently T7. There is abnormal bony signal throughout, with a high degree of enhancement. There is a large area of posterior bony retropulsion particularly at the left side. This causes severe compression of the thoracic spinal cord. Otherwise signal of the cord is normal. There is moderately severe patient motion artifact. There are several nodular enhancing areas in bone marrow signal abnormalities throughout the spine diffusely. This is compatible with bony metastatic disease. IMPRESSION: 1. High-grade compression fracture at T7 with significant retropulsion into the central canal. This causes severe central canal stenosis. The thoracic cord is otherwise preserved. 2. Extensive bony abnormalities compatible with metastatic disease. Electronically signed by Damion Grewal 09/02/2018 1:32 PM
--- NOTE | 2018-09-02 13:55 | Diag Imaging Result Doc PS360 ---
EXAM: MRI LUMBAR SPINE W/WO CONTRAST INDICATION: paresthesias. r/o cord lesion TECHNIQUE: COMPARISON: None. FINDINGS: There is excessive motion artifact on several sequences, which may limit evaluation of fine anatomical details. There are multiple small enhancing foci involving the lumbar vertebrae consistent with known diffuse skeletal metastatic disease. There is no epidural extension involving the lumbar spine. There is no abnormal enhancement involving the central canal. The conus medullaris is unremarkable. There are also endplate degenerative Modic signal changes at L4-5 and L5-S1. There is disc desiccation and loss of disc space height at these levels. This appears to be most significant at L5-S1 where there is mild central canal narrowing and mild to moderate neuroforaminal stenosis. IMPRESSION: Multiple small metastatic lesions throughout the lumbar spine with no epidural extension at the lumbar spine. Electronically signed by Darrick Chiang 09/02/2018 1:53 PM
--- NOTE | 2018-09-02 15:58 | PROGRESS NOTE ---
DATE: 09/02/2018 SUBJECTIVE: Patient reports she has very excruciating back pain in the thoracic spine. It was reported by the nursing staff that this patient was supposed to be sent to [facility] to receive stimulation of the spine as per Dr. Pearson's indication. She refused to go there. Now when I went to see her she is complaining of pain. OBJECTIVE: Vital Signs: Temperature 98.7 degrees, heart rate 76, respiratory rate 13, blood pressure 129/85, O2 saturation 96% on room air. General examination: This is a chronically ill appearing, 48-year-old female lying in bed, in no acute distress. HEENT: Head is normocephalic, atraumatic. Mucous membranes dry. Neck: No JVD noted. No carotid bruits. No lymphadenopathy. No thyromegaly. Cardiovascular: S1, S2 heard. No murmurs, gallops, or rubs. Regular rate and rhythm. Respiratory: Clear bilaterally to auscultation. No work of breathing or using accessory muscles. Abdomen: Soft, nontender to palpation. Bowel sounds present. No organomegaly. Extremities: No clubbing, cyanosis, or edema. Peripheral pulses present in both legs. Neurological: Patient is alert and oriented x3. Moves 4 extremities. Patient is very anxious and complaining of pain, very tearful. DIAGNOSTIC STUDIES: Thoracic MRI done yesterday showed high grade compression fracture at T7 with significant retropulsion into the central canal that is causing severe central canal stenosis but the thoracic cord is otherwise preserved. There is also extensive bony abnormalities compatible with metastatic disease. Brain MRI did not show any evidence of intracranial metastases. Lumbar MRI showed multiple small metastatic lesions throughout the lumbar spine with no epidural extension of the lumbar spine. ASSESSMENT AND PLAN: 1. Large left breast mass with widespread metastasis to lung, spine, and liver. Oncology is on board. We have gotten an MRI of the brain, lumbar spine, and thoracic spine with results as above. At this point, what we are going to do is to talk with the patient to explain in depth the advantage going to [facility] to have that therapy recommended by Dr. Pearson. At this time patient agreed with the plan. 2. Anxiety and schizophrenia. She is not receiving anything for that condition. We will start Seroquel 25 mg p.o. b.i.d. We will continue with citalopram and will do Ativan p.r.n. We will go from there. 3. Severe back pain, likely related to bony metastasis. Will continue in this case with fentanyl patch and Dilaudid that at this point she is getting 2 mg to 3 hours p.r.n. The patient is also getting oxycodone 10 mg q.4 hours. We will continue with same management. 4. Anemia of chronic disease. Most likely related to underlying malignancy. We will continue to monitor CBC. 5. Transaminitis, likely secondary to metastatic liver disease. At this point, we will continue to monitor. No need for any intervention. 6. Deep vein thrombosis prophylaxis. On SCDs. 7. Disposition. At this point, I had a long conversation with this patient explaining the advantage of receiving that therapy recommended but Dr. Pearson and patient has agreed to proceed. cc: Collin Fernández MD
[2018-09-02] MEDS: LEXAPRO PO SCH (21:27)
[2018-09-03] MEDS: DECADRON PO SCH ×4 (00:12→18:08)
[2018-09-03] MEDS: OXY IR PO PRN ×5 (00:21→21:52)
[2018-09-03] MEDS: TYLENOL PO SCH ×4 (03:18→21:53)
[2018-09-03] MEDS: DILAUDID IV PRN ×4 (03:19→14:41)
[2018-09-03] MEDS: ATIVAN IV PRN ×3 (03:37→16:25)
[2018-09-03] MEDS: HUMULIN R SUBQ SCH ×4 (06:39→21:52)
[2018-09-03] MEDS: PRILOSEC PO SCH (06:47)
[2018-09-03] MEDS: MOVANTIK PO SCH (06:48)
[2018-09-03] MEDS: LOVENOX SUBQ SCH (06:48)
[2018-09-03] MEDS: MIRALAX PO SCH ×2 (09:28→21:52)
[2018-09-03] MEDS: LACTULOSE PO SCH ×2 (09:28→21:52)
[2018-09-03] MEDS: NAPROSYN PO SCH ×2 (09:29→21:52)
[2018-09-03 11:53] LABS: IRON SATURATION 26 %; TIBC 304 ug/dL; TOTAL IRON 78 ug/dL (49-151); UNBOUND IRON 226 ug/dL (112-346)
--- NOTE | 2018-09-03 14:12 | PROGRESS NOTE ---
DATE: 09/03/2018 SUBJECTIVE: Patient is complaining of lower back pain. The patient is supposed to go to [facility] for a simulation of radiation as per Dr. Pearson's recommendation. OBJECTIVE: Vital Signs: Temperature 97.6, heart rate 71, respiratory rate 16, blood pressure 129/79. O2 sat 98% on room air EXAMINATION: General: This is a chronically ill-looking 48-year-old female lying in bed, in no acute distress. HEENT: Head is normocephalic, atraumatic. Neck: No JVD noted. No carotid bruits. No lymphadenopathy. No thyromegaly. Cardiovascular: S1, S2 heard. No murmurs, gallops or rubs. Regular rate and rhythm. Respiratory: Clear bilaterally to auscultation. No work of breathing. Not using accessory muscles. Abdomen: Soft, nontender to palpation. Bowel sounds present. No organomegaly. Extremities: No clubbing, cyanosis or edema. Peripheral pulses present in both legs. Neurologic: Patient alert and oriented x 3. The patient is very tearful. Moves 4 extremities. LABORATORY DATA: Reviewed. ASSESSMENT AND PLAN: 1. Large left breast mass. Cancer with widespread metastasis to lungs, spine and liver. Oncology following this patient. The patient also has severe back pain secondary to bony metastases and those lesions are going to be treated with radiotherapy. Patient is going to [facility] for that. We will follow recommendations from Oncology Radiation therapy. 2. Anxiety and schizophrenia. Patient has been started on Ativan p.r.n. and also Seroquel. Will continue with same management. 3. Anemia of chronic disease, is stable. Most likely related to malignancy. We will continue to monitor. 4. Transaminitis secondary to metastatic liver disease. Aware. We will continue to monitor. 5. DVT prophylaxis. On SCDs. DISPOSITION: At this point, we are following lead from Oncology. cc: Collin Fernández MD
[2018-09-03 17:02] LABS: BASO# 0.04 X1000 (0.0-0.2); BASO% 0.2 % (0.0-0.8); HEMATOCRIT 27.6 % (37.0-47.0); HEMOGLOBIN 8.4 g/dL (12.0-16.0); IMM GRAN# 0.26 X1000 (0.0-0.04); IMM GRAN% 1.2 % (0.0-0.5); MCH 23.1 PG (27-31); MCHC 30.4 g/dL (33-37); MCV 75.8 FL (81-99); MONO# 1.66 X1000 (0.11-0.59); MONO% 7.8 % (1.7-9.3); MPV 10.1 FL (7.4-10.4); NEUT# 17.88 X1000 (1.4-6.5); NEUT% 83.8 % (42.2-75.2); PLT 481 X1000 (130-400); RBC 3.64 XMIL (4.2-5.4); RDW 21.2 % (11.5-14.5); WBC 21.34 X1000 (4.8-10.8)
[2018-09-03 17:20] LABS: AGAP 9; BUN 16 mg/dL (8-22); CALCIUM 9.1 mg/dL (8.8-10.2); CHLORIDE 90 mmol/L (98-107); COSMO 258; CREATININE 0.6 mg/dL (0.5-0.9); ESTIMATED GFR > 60; GLUCOSE 99 mg/dL (70-104); POTASSIUM 4.2 mmol/L (3.5-5.1); SODIUM 128 mmol/L (136-145); TCO2 29 mmol/L (25-35)
[2018-09-03] MEDS: LEXAPRO PO SCH (21:52)
[2018-09-04] MEDS: DECADRON PO SCH ×4 (00:36→18:00)
[2018-09-04] MEDS: DILAUDID IV PRN ×5 (01:52→17:48)
[2018-09-04] MEDS: TYLENOL PO SCH ×5 (01:52→21:32)
[2018-09-04] MEDS: LOVENOX SUBQ SCH ×2 (05:38→07:42)
[2018-09-04] MEDS: MOVANTIK PO SCH ×2 (05:38→07:42)
[2018-09-04] MEDS: PRILOSEC PO SCH ×2 (05:38→07:43)
[2018-09-04] MEDS: HUMULIN R SUBQ SCH ×4 (06:10→21:35)
[2018-09-04 08:29] LABS: AGAP 9; BUN 15 mg/dL (8-22); CALCIUM 9.3 mg/dL (8.8-10.2); CHLORIDE 91 mmol/L (98-107); COSMO 266; CREATININE 0.5 mg/dL (0.5-0.9); ESTIMATED GFR > 60; GLUCOSE 104 mg/dL (70-104); POTASSIUM 4.2 mmol/L (3.5-5.1); SODIUM 132 mmol/L (136-145); TCO2 32 mmol/L (25-35)
[2018-09-04 08:31] LABS: MCH 23.1 PG (27-31); MCV 76.9 FL (81-99); MPV 10.8 FL (7.4-10.4); RBC 3.9 XMIL (4.2-5.4); RDW 21.9 % (11.5-14.5); WBC 19.27 X1000 (4.8-10.8)
[2018-09-04] MEDS: OXY IR PO PRN ×3 (08:47→21:32)
[2018-09-04] MEDS: NAPROSYN PO SCH ×2 (08:48→21:32)
[2018-09-04] MEDS: MIRALAX PO SCH ×2 (08:48→21:31)
[2018-09-04] MEDS: LACTULOSE PO SCH ×2 (08:48→21:32)
[2018-09-04] MEDS: ATIVAN IV PRN (12:16)
--- NOTE | 2018-09-04 14:42 | PROGRESS NOTE ---
DATE: 09/04/2018 SUBJECTIVE: The patient continues to complain of lower back pain but she is barely able to stay awake. She is sleeping in front of me. OBJECTIVE: Vital Signs: Temperature 96.9 degrees, heart rate 72, respiratory rate 16, blood pressure 120/78, O2 saturation 97% on room air. General: This is 48-year-old, chronically ill- looking and frail, female lying in bed, in no acute distress. HEENT: Head is normocephalic, atraumatic. Neck: No JVD noted. No carotid bruits. No lymphadenopathy. Cardiovascular: S1, S2 heard. No murmurs, gallops, or rubs. Regular rate and rhythm. Respiratory: Clear bilaterally to auscultation. No work of breathing or using accessory muscles. Abdomen: Soft. Nontender to palpation. Bowel sounds present. No organomegaly. Extremities: No clubbing, cyanosis, or edema. Peripheral pulses present in both legs. Neurological: The patient is very sleepy, barely able to stay awake. Patient moves 4 extremities spontaneously. LABORATORY DATA: Reviewed. ASSESSMENT AND PLAN: 1. Large left breast cancer with widespread metastases to lungs, spinal, and liver. Oncology is following this patient. Also Oncology Radiation, Dr. Pearson, is following this patient. The plan for her is to do radiation therapy in [facility]. She was there this morning. At this point, we will continue recommendations from her. 2. Anxiety and schizophrenia. Patient is on Ativan p.r.n. but it is going to be held if patient continues to be so sleepy. 3. Anemia of chronic disease. Stable. We will continue with the same management. 4. Transaminitis secondary to metastatic liver disease. Aware. We will continue to monitor. 5. Severe back pain secondary to metastases. The patient has been already warned that if she is very sleepy she is not going to be given any pain medications. 6. Disposition. We will continue to monitor this patient closely. cc: Collin Fernández MD
[2018-09-04] MEDS: LEXAPRO PO SCH (21:32)
[2018-09-05] MEDS: ATIVAN IV PRN ×2 (01:04→07:57)
[2018-09-05] MEDS: DECADRON PO SCH ×4 (01:05→17:45)
[2018-09-05] MEDS: TYLENOL PO SCH ×2 (05:11→08:02)
[2018-09-05] MEDS: DURAGESIC 25 MICROGM/HR PATCH TD SCH (05:18)
[2018-09-05] MEDS: DILAUDID IV PRN ×4 (05:18→19:51)
[2018-09-05] MEDS: HUMULIN R SUBQ SCH ×4 (06:30→19:59)
[2018-09-05] MEDS: LOVENOX SUBQ SCH (06:31)
[2018-09-05] MEDS: MOVANTIK PO SCH (06:31)
[2018-09-05] MEDS: PRILOSEC PO SCH (06:31)
[2018-09-05] MEDS: LACTULOSE PO SCH ×2 (08:02→20:00)
[2018-09-05] MEDS: MIRALAX PO SCH ×2 (08:02→19:59)
[2018-09-05] MEDS: NAPROSYN PO SCH ×3 (08:02→20:00)
[2018-09-05 08:09] LABS: HEMATOCRIT 30.6 % (37.0-47.0); HEMOGLOBIN 9.4 g/dL (12.0-16.0); MCH 23.6 PG (27-31); MCHC 30.7 g/dL (33-37); MCV 76.9 FL (81-99); MPV 10.4 FL (7.4-10.4); RBC 3.98 XMIL (4.2-5.4); RDW 23.3 % (11.5-14.5); WBC 19.85 X1000 (4.8-10.8)
[2018-09-05 08:50] LABS: AGAP 11; BUN 19 mg/dL (8-22); CALCIUM 9.3 mg/dL (8.8-10.2); CHLORIDE 93 mmol/L (98-107); COSMO 271; CREATININE 0.6 mg/dL (0.5-0.9); ESTIMATED GFR > 60; GLUCOSE 100 mg/dL (70-104); POTASSIUM 4.8 mmol/L (3.5-5.1); SODIUM 134 mmol/L (136-145); TCO2 30 mmol/L (25-35)
[2018-09-05] MEDS: OXY IR PO PRN ×2 (16:57→22:48)
--- NOTE | 2018-09-05 17:31 | PROGRESS NOTE ---
DATE: 09/05/2018 SUBJECTIVE: The patient continues to complain of low back pain. She continues to be very sleepy. She is barely able to stay awake. Family is at bedside. OBJECTIVE: Vital Signs: Temperature 96.9 degrees, heart rate 78, respiratory rate 16, blood pressure 109/76, O2 saturation 100% on room air. General: This is a chronically ill-looking and malnourished 48-year-old female lying in bed, in no acute distress. HEENT: Head is normocephalic, atraumatic. Neck: No JVD noted. No carotid bruits. No lymphadenopathy. No thyromegaly. Cardiovascular: S1, S2 heard. No murmurs, gallops, or rubs. Regular rate and rhythm. Respiratory: Clear bilaterally to auscultation. No work of breathing or using accessory muscles. Abdomen: Soft. Nontender to palpation. Bowel sounds present. No organomegaly. Extremities: No clubbing, cyanosis, or edema. Peripheral pulses present in both legs. Neurological: Patient is very sleepy, barely able to stay awake. The patient continues to report every time he she is awake that she is hurting. LABORATORY DATA: Reviewed. ASSESSMENT AND PLAN: 1. Large left breast cancer, with widespread metastasis to lungs, spine, and liver. Oncology is following with this patient. Also, the patient is going to have radiotherapy here in the hospital. Also, her oncologist, Dr. Yi, has been consulted. We will follow recommendations. 2. Schizophrenia. Patient is on Ativan p.r.n. We will hold of course if this patient continues to be so sleepy and confused. 3. Anemia of chronic disease. Stable. We will continue with same management. 4. Transaminitis, secondary to metastatic liver disease. We will continue to monitor. 5. Severe back pain secondary to metastases. 6. At this point, I am not going to provide even the medication that she has been on if she continues to be sleepy, and I explained to her and the family who is at bedside, the high risk of respiratory arrest if we continue to provide those medications to her. 7. Disposition. We will continue to monitor this patient closely. cc: Collin Fernández MD
[2018-09-05] MEDS: LEXAPRO PO SCH ×2 (19:53→20:00)
[2018-09-06] MEDS: DECADRON PO SCH ×4 (00:16→17:28)
[2018-09-06] MEDS: DILAUDID IV PRN ×7 (00:17→21:00)
[2018-09-06] MEDS: HUMULIN R SUBQ SCH ×4 (06:17→21:00)
[2018-09-06] MEDS: OXY IR PO PRN (06:18)
[2018-09-06] MEDS: PRILOSEC PO SCH (06:18)
[2018-09-06] MEDS: MOVANTIK PO SCH (06:18)
[2018-09-06] MEDS: LOVENOX SUBQ SCH (06:19)
[2018-09-06] MEDS: ATIVAN IV PRN (06:59)
[2018-09-06 07:40] LABS: HEMOGLOBIN 9.1 g/dL (12.0-16.0); MCH 24.6 PG (27-31); MCHC 31.4 g/dL (33-37); MCV 78.4 FL (81-99); MPV 10.4 FL (7.4-10.4); RBC 3.7 XMIL (4.2-5.4); RDW 24.2 % (11.5-14.5); WBC 21.89 X1000 (4.8-10.8)
[2018-09-06 07:43] LABS: AGAP 9; BUN 19 mg/dL (8-22); CALCIUM 9.3 mg/dL (8.8-10.2); CHLORIDE 93 mmol/L (98-107); COSMO 269; CREATININE 0.6 mg/dL (0.5-0.9); ESTIMATED GFR > 60; GLUCOSE 167 mg/dL (70-104); POTASSIUM 4.3 mmol/L (3.5-5.1); SODIUM 131 mmol/L (136-145); TCO2 29 mmol/L (25-35)
[2018-09-06] MEDS: NAPROSYN PO SCH (10:01)
[2018-09-06] MEDS: LACTULOSE PO SCH ×2 (10:02→22:15)
[2018-09-06] MEDS: MIRALAX PO SCH ×2 (10:05→22:16)
[2018-09-06] MEDS: OXY IR PO SCH ×3 (12:25→23:30)
[2018-09-06] MEDS: ZOFRAN IV PRN (13:36)
[2018-09-06] MEDS: XANAX PO SCH ×2 (14:14→21:00)
--- NOTE | 2018-09-06 15:05 | PROGRESS NOTE ---
DATE: 09/06/2018 SUBJECTIVE: The patient continues to complain of excruciating pain all over her body. She is also requesting to change her medications from Ativan to Xanax. OBJECTIVE: Vital Signs: Temperature 98.3 degrees, heart rate 74, respiratory rate 16, blood pressure 101/73, oxygen saturation 98% on room air. General: This is a chronically ill- looking, malnourished, 48-year-old female, lying in bed, in no acute distress. HEENT: Head is normocephalic and atraumatic. Neck: No JVD noted. No carotid bruits. No lymphadenopathy. No thyromegaly. Cardiovascular: S1, S2 heard. No murmurs, gallops, or rubs. Regular rate and rhythm. Respiratory: Decreased breath sounds globally. No crackles or gallops noted. Abdomen: Soft, nontender to palpation. Bowel sounds present. No organomegaly. Extremities: No clubbing, cyanosis, or edema. Peripheral pulses present in both legs. Neurological: Patient continues to be very sleepy, and she struggles to stay awake. Patient answers to verbal stimuli. LABORATORY DATA: Reviewed. ASSESSMENT AND PLAN: 1. Large left breast cancer, with widespread metastasis to lungs, liver, and spine. Oncology and Radiation Oncology following. The patient did go to [facility] to start her radiation therapy. Dr. Yi and Dr. Pearson involved in her care, so we will continue with the same management. 2. Schizophrenia. Patient is on home medications. 3. Anemia of chronic disease. Stable. Will continue to monitor CBC. 4. Transaminitis, secondary to metastatic liver disease. We will continue to monitor BMP. 5. Severe back pain secondary to metastasis, aware, but at this point, we are not going to increase the dose of pain medication because of risk of respiratory depression. 6. Disposition. We will continue to monitor this patient closely. cc: Collin Fernández MD
[2018-09-06] MEDS: LEXAPRO PO SCH (21:00)
[2018-09-07] MEDS: XANAX PO SCH ×4 (02:44→20:44)
[2018-09-07] MEDS: DECADRON PO SCH ×5 (06:05→23:46)
[2018-09-07] MEDS: LOVENOX SUBQ SCH (06:05)
[2018-09-07] MEDS: PRILOSEC PO SCH (06:05)
[2018-09-07] MEDS: MOVANTIK PO SCH (06:05)
[2018-09-07] MEDS: HUMULIN R SUBQ SCH ×4 (06:07→20:43)
[2018-09-07] MEDS: OXY IR PO SCH ×4 (06:12→20:43)
[2018-09-07 07:21] LABS: HEMATOCRIT 30.2 % (37.0-47.0); HEMOGLOBIN 9.1 g/dL (12.0-16.0); MCH 23.8 PG (27-31); MCHC 30.1 g/dL (33-37); MCV 78.9 FL (81-99); MPV 10.5 FL (7.4-10.4); RBC 3.83 XMIL (4.2-5.4); RDW 24.8 % (11.5-14.5); WBC 21.2 X1000 (4.8-10.8)
[2018-09-07] MEDS: DILAUDID IV PRN ×5 (09:27→23:46)
[2018-09-07] MEDS: LACTULOSE PO SCH ×2 (09:28→20:45)
[2018-09-07] MEDS: MIRALAX PO SCH ×2 (09:28→20:45)
--- NOTE | 2018-09-07 10:04 | PROGRESS NOTE ---
DATE: 09/07/2018 SUBJECTIVE: The patient is a little bit more awake today. The patient continues to complain of excruciating pain in the abdomen and on the thoracic spine as well. As we mentioned before, she is less sleepy definitely. OBJECTIVE: Vital Signs: Temperature 97.9 degrees, heart rate 70, respiratory rate 18, blood pressure 136/70, O2 saturation 98% on room air. General Examination: This is a chronically ill looking, 48-year-old, female lying in bed, in no acute distress. HEENT: Head is normocephalic and atraumatic. Neck: No carotid bruits. No lymphadenopathy. No thyromegaly. Cardiovascular Examination: S1 and S2 heard. No murmurs, gallops, or rubs. Regular rate and rhythm. Respiratory Examination: Clear bilaterally to auscultation. No work of breathing or using accessory muscles. Abdomen: Soft, nontender to palpation. Bowel sounds present. No organomegaly. Extremities: No clubbing, cyanosis, or edema. Peripheral pulses present in both legs. Neurological Examination: The patient is more awake and alert. Able to have a good conversation. She followed commands. Moved 4 extremities spontaneously. Laboratory Data: White cell count 21.20, hemoglobin 9.1, hematocrit 30.2, platelets 561,000. ASSESSMENT AND PLAN: 1. Large left breast cancer with widespread metastasis to lungs, the brain, and spine. At this point, radiation oncology following this patient. She received radiation therapy in the back for that lesion with severe stenosis of the thoracic spine. The patient has unbearable pain and considering that she is more awake and alert, and still complaining of pain, and considering all her metastases, I prefer to go ahead and increase the dose of oxycodone to 50 mg by mouth every 6 hours as scheduled and is still having Dilaudid as needed. At this point, we are awaiting further recommendations from Dr. Yi. I do not know if she is going to be treated in the hospital for this condition or not. We will talk to them tomorrow. 2. Schizophrenia. The patient is on home medications. 3. Anemia of chronic disease. The hemoglobin is stable. We will continue to monitor CBC. 4. Transaminitis secondary to liver metastasis. At this point, we are going to check liver function tests tomorrow. From a few days ago, those have been slightly elevated. 5. Disposition. We will continue to monitor this patient closely. We will follow the lead from oncology. cc: Collin Fernández MD
[2018-09-07] MEDS: LEXAPRO PO SCH (20:44)
[2018-09-08] MEDS: XANAX PO SCH ×4 (02:54→20:47)
[2018-09-08] MEDS: OXY IR PO SCH ×4 (02:54→21:30)
[2018-09-08] MEDS: DILAUDID IV PRN ×7 (02:54→20:59)
[2018-09-08] MEDS: DECADRON PO SCH ×3 (05:57→18:11)
[2018-09-08] MEDS: MOVANTIK PO SCH (05:59)
[2018-09-08] MEDS: PRILOSEC PO SCH (05:59)
[2018-09-08] MEDS: LOVENOX SUBQ SCH (06:00)
[2018-09-08] MEDS: HUMULIN R SUBQ SCH ×4 (06:00→20:54)
[2018-09-08] MEDS: LACTULOSE PO SCH ×2 (08:32→20:48)
[2018-09-08] MEDS: MIRALAX PO SCH ×2 (08:32→20:47)
--- NOTE | 2018-09-08 10:48 | PROGRESS NOTE ---
DATE: 09/08/2018 SUBJECTIVE: Patient is a little bit more awake. The patient reports pain is better controlled today. OBJECTIVE: Vital Signs: Temperature 97.6 degrees, heart rate 67, respiratory rate 18, blood pressure 117/84, O2 saturation 99% on room air. General Examination: This is a chronically ill- looking and frail 48-year-old female lying in bed, in no acute distress. HEENT: Head is normocephalic, atraumatic. Neck: No JVD noted. No carotid bruits. No lymphadenopathy. No thyromegaly. Cardiovascular: S1 S2 heard. No murmurs, gallops, or rubs. Regular rate and rhythm. Respiratory: Clear bilaterally to auscultation. No work of breathing or using accessory muscles. Abdomen: Soft, nontender to palpation. Bowel sounds present. No organomegaly. Extremities: No clubbing, cyanosis, or edema. Peripheral pulses present in both legs. Neurological: Patient is more awake and alert. Able to have a good conversation. She is a little bit confused about her medications being given to her. But overall, she is doing good. Moves 4 extremities spontaneously. LABORATORY DATA: Laboratories from today are not available. ASSESSMENT AND PLAN: 1. Left breast cancer, with widespread metastasis to the lungs, liver and spine. At this point, Dr. Pearson, is following this patient. She was providing radiation therapy for the lesion that this patient has in the thoracic spine. After we have made some changes to her pain medications, pain is better controlled today. I have contacted Dr. Yi who is planning to start chemotherapy on this patient considering that she is self-pay. We will continue to monitor this patient closely. 2. Schizophrenia. Unknown type. The patient is not on any psychiatric medications, and the list of medications provided to the hospital at admission, there were no psychiatric medications. At this point, I prefer to start the patient on low doses of Seroquel and see how this patient does. 3. Anemia of chronic disease. Hemoglobin is stable. Continue to monitor. 4. Transaminitis secondary to liver metastases. That condition is apparently stable. We will continue to monitor. 5. Disposition. We will continue to monitor this patient closely. As we mentioned before, chemotherapy will be started while this patient is here in the hospital as an inpatient. cc: Collin Fernández MD
[2018-09-08] MEDS: SEROQUEL PO SCH ×2 (11:00→20:47)
[2018-09-08] MEDS: DURAGESIC 25 MICROGM/HR PATCH TD SCH (18:40)
[2018-09-08] MEDS: LEXAPRO PO SCH (20:47)
[2018-09-09] MEDS: DECADRON PO SCH ×4 (00:43→20:00)
[2018-09-09] MEDS: DILAUDID IV PRN ×6 (01:27→21:53)
[2018-09-09] MEDS: XANAX PO SCH ×4 (01:27→21:23)
[2018-09-09] MEDS: OXY IR PO SCH ×4 (03:54→21:24)
[2018-09-09] MEDS: HUMULIN R SUBQ SCH ×4 (06:26→21:25)
[2018-09-09] MEDS: LOVENOX SUBQ SCH (06:27)
[2018-09-09] MEDS: PRILOSEC PO SCH (06:27)
[2018-09-09] MEDS: MOVANTIK PO SCH (06:27)
[2018-09-09] MEDS: MIRALAX PO SCH ×2 (08:07→21:24)
[2018-09-09] MEDS: LACTULOSE PO SCH ×2 (08:07→21:24)
[2018-09-09] MEDS: SEROQUEL PO SCH ×2 (08:23→21:24)
[2018-09-09 11:01] LABS: INR 0.89; PROTIME 12.8 Seconds (11.0-16.0)
[2018-09-09] MEDS ORDERED: NS 250 ML ONE (13:58)
[2018-09-09] MEDS ORDERED: PHENERGAN IV PRN (15:59)
[2018-09-09] MEDS ORDERED: SODIUM CHLORIDE 0.9% INJ PRN (15:59)
[2018-09-09] MEDS ORDERED: PHENERGAN PO PRN (15:59)
[2018-09-09] MEDS ORDERED: ZOFRAN 16 MG, DECADRON 10 MG in NS 50 ML IV ONE (16:15)
[2018-09-09] MEDS ORDERED: NS IV ONE (16:30)
[2018-09-09] MEDS ORDERED: AVASTIN IV ONE (16:30)
[2018-09-09] MEDS ORDERED: [UNRECOGNIZED DRUG - OTHER] IV ONE (17:00)
[2018-09-09] MEDS ORDERED: DILUENT IV ONE (17:00)
[2018-09-09] MEDS ORDERED: NS 100 ML IV ONE (17:30)
[2018-09-09] MEDS: LEXAPRO PO SCH (21:24)
--- NOTE | 2018-09-09 22:56 | PROGRESS NOTE ---
DATE: 09/09/2018 SUBJECTIVE: I went to see this patient this morning. She was awake. She was complaining of pain but definitely better in comparing with yesterday. OBJECTIVE: Vital Signs: Temperature 97.8 degrees, heart rate 81, respiratory rate 18, blood pressure 129/90, O2 saturation 99% on room air. General examination: This is a chronically ill- appearing and frail, 48-year-old female lying in bed in no acute distress. HEENT: Head is normocephalic and atraumatic. Neck: No JVD noted. No carotid bruits. No lymphadenopathy. No thyromegaly. Cardiovascular exam: S1, S2 heard. No murmurs, gallops, or rubs. Regular rate and rhythm. Respiratory: Clear bilaterally to auscultation. No work of breathing or using accessory muscles. Abdomen: Soft, nontender to palpation. Bowel sounds present. No organomegaly. Extremities: No clubbing, cyanosis, or edema. Peripheral pulses present in both legs. Neurological Exam: Patient is awake and alert, although somewhat sleepier but able to have a good conversation. Moves her extremities spontaneously. LABORATORY DATA: There are no labs from today except INR 0.89, and blood sugar is 160. ASSESSMENT AND PLAN: 1. Left breast cancer with metastases to lung, liver and spine. Dr. Yi is planning to start chemotherapy today. Also, she is going to continue with radiotherapy as per Dr. Pearson recommendations. We will follow recommendations from both specialists. 2. Schizophrenia, unknown type. The patient has been started on Seroquel. Apparently she is doing okay. We will continue with the same management. 3. Anemia of chronic disease. Hemoglobin is stable. We have not checked any labs in the last 3 days so we will check one tomorrow. 4. Transaminitis secondary to liver metastases. Aware. We will continue to monitor. DISPOSITION: As we mentioned before, patient is going to start chemotherapy here in the hospital. We will discharge her whenever she is cleared by oncology and radiation oncology as well. cc: Collin Fernández MD
[2018-09-10] MEDS: DECADRON PO SCH ×4 (00:30→19:59)
[2018-09-10] MEDS: DILAUDID IV PRN ×2 (02:17→06:23)
[2018-09-10] MEDS: XANAX PO SCH ×4 (02:17→21:18)
[2018-09-10] MEDS: OXY IR PO SCH (03:29)
[2018-09-10] MEDS: LOVENOX SUBQ SCH (06:23)
[2018-09-10] MEDS: PRILOSEC PO SCH (06:23)
[2018-09-10] MEDS: MOVANTIK PO SCH (06:23)
[2018-09-10] MEDS: HUMULIN R SUBQ SCH ×4 (06:24→21:02)
[2018-09-10] MEDS ORDERED: SODIUM CHLORIDE 0.9% INJ PRN (08:55)
[2018-09-10] MEDS ORDERED: NARCAN IV PRN (08:55)
[2018-09-10] MEDS ORDERED: PHENERGAN IV PRN (08:55)
[2018-09-10] MEDS ORDERED: BENADRYL IV PRN (08:55)
[2018-09-10] MEDS: LR 1,000 ML IV SCH (09:56)
[2018-09-10] MEDS: DILAUDID-HP 30 MG in NS 27 ML IV PRN (09:56)
[2018-09-10 10:52] LABS: BASO# 0.01 X1000 (0.0-0.2); HEMATOCRIT 31.9 % (37.0-47.0); HEMOGLOBIN 9.7 g/dL (12.0-16.0); LYMPH# 0.61 X1000 (1.2-3.4); LYMPH% 2.9 % (20.5-51.1); MCH 24.7 PG (27-31); MCHC 30.4 g/dL (33-37); MCV 81.2 FL (81-99); MONO# 1.37 X1000 (0.11-0.59); MONO% 6.5 % (1.7-9.3); MPV 9.8 FL (7.4-10.4); NEUT# 19.02 X1000 (1.4-6.5); NEUT% 90.6 % (42.2-75.2); PLT 400 X1000 (130-400); RBC 3.93 XMIL (4.2-5.4); RDW 27.5 % (11.5-14.5); WBC 21.01 X1000 (4.8-10.8)
[2018-09-10 11:07] LABS: ESTIMATED GFR > 60
[2018-09-10 11:15] LABS: AGAP 9; BUN 24 mg/dL (8-22); CALCIUM 9.6 mg/dL (8.8-10.2); CHLORIDE 88 mmol/L (98-107); COSMO 269; CREATININE 0.5 mg/dL (0.5-0.9); GLUCOSE 110 mg/dL (70-104); POTASSIUM 4.6 mmol/L (3.5-5.1); SODIUM 132 mmol/L (136-145); TCO2 35 mmol/L (25-35)
[2018-09-10] MEDS: SEROQUEL PO SCH ×2 (11:16→21:17)
[2018-09-10] MEDS: LACTULOSE PO SCH ×2 (11:17→21:18)
[2018-09-10] MEDS: MIRALAX PO SCH ×2 (11:17→21:18)
[2018-09-10 11:22] LABS: ANISOCYTOSIS 2+; BANDS 2 % (0-1); HYPOCHROM 2+; LYMPHS 4 % (21-51); MONO 6 % (1-9); SEGS 88 % (42-75)
[2018-09-10 11:23] LABS: POIKILOCYTOSIS 1+; TARGET CELLS 1+
--- NOTE | 2018-09-10 11:56 | PROGRESS NOTE ---
DATE: 09/10/2018 SUBJECTIVE: Patient reports feeling fine. We have placed a CENTRIFUGAL SUPERVISOR pump in order to help this patient to control her symptoms better. OBJECTIVE: Vital Signs: Temperature 98.4. Heart rate 82, respiratory rate 20, blood pressure 136/79. O2 saturation 95% on room air. General examination: This is a chronically ill- appearing and frail, 48-year-old female lying in bed, in no acute distress. HEENT: Head is normocephalic, atraumatic. Neck: No JVD noted. No carotid bruits. No lymphadenopathy. No thyromegaly. Cardiovascular: S1, S2 heard. No murmurs, gallops, or rubs. Regular rate and rhythm. Respiratory: Clear bilaterally to auscultation. No work of breathing or using accessory muscles. Abdomen: Soft, nontender to palpation. Bowel sounds present. No organomegaly. Extremities: No clubbing, cyanosis, or edema. Peripheral pulses present in both legs on. Neurologic: The patient is awake, alert, although sometimes she tends to sleep. Able to have a coherent conversation. Moves 4 extremities spontaneously. No gait abnormalities noted. LABORATORY DATA: White cell count is 21.01, hemoglobin 9.7, hematocrit 31.9, platelets 400,000. Sodium 132, renal function 0.5, glucose 110. ASSESSMENT/PLAN: 1. Left breast cancer with metastasis to lung, liver and spine. Dr. Yi has started chemotherapy on this patient. Apparently, she is supposed to receive 14 days of chemotherapy on a daily basis. She has started yesterday the first one and apparently she tolerated very well. At this point, I think I will talk with Dr. Yi to see if we can set up those treatments as outpatient. As per social service coordinator, she is able to come to the hospital on a daily basis. Also, we will check with Dr. Pearson for how long this patient needs to stay in the hospital for radiotherapy. Regarding management of the pain, we are going to stop oxycodone because we have started CENTRIFUGAL SUPERVISOR pump with Dilaudid for this patient today, so we expect her pain to be much better controlled. 2. Schizophrenia. We do not know exactly the type of schizophrenia she has. We have started her here in the hospital on Seroquel. Apparently she is doing fine. We will continue with same management. 3. Anemia of chronic disease. Hemoglobin is stable. We will continue to monitor this patient. 4. Leukocytosis. Of course, white cell count is elevated because this patient is on dexamethasone and IV steroids. We will continue to monitor CBC. 5. Transaminitis secondary to liver metastases. We checked transaminase last time a week ago and this was almost close to normal. We are going to check hepatic profile today and tomorrow and see how she does. 6. Disposition. We will continue to monitor this patient closely. Further disposition depending upon Dr. Yi and Dr. Pearson recommendations and plans. cc: Collin Fernández MD
[2018-09-10] MEDS: LEXAPRO PO SCH (21:17)
[2018-09-11] MEDS: DECADRON PO SCH ×5 (01:13→23:34)
[2018-09-11] MEDS: XANAX PO SCH ×4 (02:31→20:04)
[2018-09-11] MEDS: HUMULIN R SUBQ SCH ×4 (06:31→20:06)
[2018-09-11] MEDS: LOVENOX SUBQ SCH (06:32)
[2018-09-11] MEDS: MOVANTIK PO SCH (06:32)
[2018-09-11] MEDS: PRILOSEC PO SCH (06:32)
[2018-09-11 07:31] LABS: BASO# 0.01 X1000 (0.0-0.2); BASO% 0.1 % (0.0-0.8); HEMATOCRIT 34.2 % (37.0-47.0); HEMOGLOBIN 10.5 g/dL (12.0-16.0); IMM GRAN# 0.13 X1000 (0.0-0.04); IMM GRAN% 0.9 % (0.0-0.5); LYMPH# 0.43 X1000 (1.2-3.4); MCH 24.4 PG (27-31); MCHC 30.7 g/dL (33-37); MCV 79.5 FL (81-99); MONO# 0.56 X1000 (0.11-0.59); MONO% 3.9 % (1.7-9.3); MPV 10.3 FL (7.4-10.4); NEUT% 92.1 % (42.2-75.2); PLT 353 X1000 (130-400); RDW 28.1 % (11.5-14.5); WBC 14.53 X1000 (4.8-10.8)
[2018-09-11 08:02] LABS: ESTIMATED GFR > 60
[2018-09-11 08:14] LABS: AGAP 12; ALB/GLOB RATIO 1.1; ALBUMIN 3.9 g/dL (3.5-5.0); ALKALINE PHOSPHATASE 562 U/L (32-104); BUN 22 mg/dL (8-22); CHLORIDE 87 mmol/L (98-107); COSMO 269; CREATININE 0.5 mg/dL (0.5-0.9); GLUCOSE 112 mg/dL (70-104); GOT 140 U/L (10-30); GPT 124 U/L (10-36); POTASSIUM 4.8 mmol/L (3.5-5.1); SODIUM 132 mmol/L (136-145); TCO2 33 mmol/L (25-35); TOTAL BILIRUBIN 0.53 mg/dL (0.20-1.00); TOTAL PROTEIN 7.4 g/dL (6.3-8.3)
[2018-09-11] MEDS: SEROQUEL PO SCH ×2 (08:15→20:04)
[2018-09-11] MEDS: LACTULOSE PO SCH ×2 (08:18→20:07)
[2018-09-11] MEDS: MIRALAX PO SCH ×2 (08:19→20:07)
[2018-09-11] MEDS: TYLENOL PO PRN (11:53)
[2018-09-11] MEDS ORDERED: MYLICON PO ONE (12:16)
[2018-09-11] MEDS: DILAUDID-HP 30 MG in NS 27 ML IV PRN (14:29)
[2018-09-11] MEDS: LR 1,000 ML IV SCH (14:31)
[2018-09-11] MEDS ORDERED: XGEVA SUBQ ONE (15:00)
[2018-09-11] MEDS: DURAGESIC 25 MICROGM/HR PATCH TD SCH (18:32)
--- NOTE | 2018-09-11 19:54 | PROGRESS NOTE ---
DATE: 09/11/2018 INTERVAL HISTORY: No acute overnight events. The patient was started on hydromorphone WELDING FOREMAN pump for her cancer-related pain and was taken off some of the other pain medications. SUBJECTIVE: The patient complains of significant diffuse pain in her ribs, back and abdomen. She appears very anxious as well. She states she wants her home pain medication. I discussed with her about the fact that she is on IV pain medication. The patient's sister and daughter who are surrogate decision makers at bedside. Plan of care is discussed with them. She continues to have watery bowel movement and she has not required laxatives. We discussed with her about fine balance between pain medication, constipation, respiratory depression and the fact that we will take a stepwise approach of increasing pain medication. I also discussed with the patient and her family that I had discussed with the oncologist about setting up outpatient therapy if possible. They had also requested a bed so that the patient can live with her daughter. VITAL SIGNS: Currently, temperature of 98.1, pulse 88, respiratory rate 14, blood pressure 115/68, saturating 97% on room air. PHYSICAL EXAMINATION: General: Patient appears anxious, not in any acute distress. Cachectic. HEENT: Oral cavity is dry. She does have oral thrush. Lungs: Air entry bilaterally equal. No wheeze, rhonchi or crackles. Cardiovascular: S1, S2 normal. No murmur, rub or gallop. Abdomen: Soft, nontender. Active bowel sounds. Extremities: No edema, cyanosis or clubbing. Neurologic: She is alert oriented x 3 and able to make conversations. However, she is teary. LAB DATA: Today suggestive of persistent leukocytosis. Stable hemoglobin, hematocrit with microcytic anemia, stable platelet count. Her eosinophil count is 0. She has persistent hyponatremia, hypochloremia, acceptable range of blood sugar levels and persistent transaminitis. ASSESSMENT AND PLAN: 1. Left breast metastatic cancer to lungs, liver and spine. The patient is already on chemotherapy. The first session was 09/10/2018. She is also receiving palliative radiotherapy for a total of 14 days. I had discussion with oncologist today and my plan is to again discuss with oncologist and radiation oncologist if I could discharge the patient later during the week if she has arrangement to continue her therapy outpatient. 2. Cancer-related pain. Continue intravenous hydromorphone WELDING FOREMAN pump and fentanyl patch. I added lidocaine patch and p.o. oxycodone today. Continue the patient on Movantik to prevent constipation and lactulose with MiraLAX. 3. Schizophrenia, unspecified type. The patient has been started on Seroquel, also continue alprazolam for anxiety, citalopram to help with the sleep. 4. Leukocytosis, likely in the setting of dexamethasone use. Transaminitis likely related to liver metastasis. 5. Disposition: Patient remains inside the hospital. My plan is to discuss with Oncology and Radiation Oncology again tomorrow if we could discharge the patient and she could follow up outpatient for daily radiation or chemotherapy. The patient's daughter or other family member is willing to keep her with them. I have also requested hospital bed. Once we have definitive chemoradiation plan and frequency, we would eventually consider discharging her. I anticipate discharge over the weekend or early next week depending on my discussion with other team members tomorrow. Plan of care was discussed with her, her daughter and sister. All of the questions have been answered. cc: Derik Lucio MD
[2018-09-11] MEDS: OXY IR PO SCH (20:04)
[2018-09-11] MEDS: LEXAPRO PO SCH (20:04)
[2018-09-11] MEDS: LIDODERM TOP SCH (20:07)
[2018-09-11] MEDS: MYCOSTATIN SUSP PO SCH (20:10)
[2018-09-12] MEDS: XANAX PO SCH ×4 (01:40→22:57)
[2018-09-12] MEDS: OXY IR PO SCH ×3 (06:02→22:56)
[2018-09-12] MEDS: MOVANTIK PO SCH (06:02)
[2018-09-12] MEDS: PRILOSEC PO SCH (06:03)
[2018-09-12] MEDS: DECADRON PO SCH ×3 (06:03→17:39)
[2018-09-12] MEDS: LOVENOX SUBQ SCH (06:03)
[2018-09-12] MEDS: HUMULIN R SUBQ SCH ×4 (06:04→20:44)
[2018-09-12 07:24] LABS: HEMATOCRIT 34.6 % (37.0-47.0); HEMOGLOBIN 10.7 g/dL (12.0-16.0); IMM GRAN# 0.09 X1000 (0.0-0.04); IMM GRAN% 0.6 % (0.0-0.5); LYMPH# 0.48 X1000 (1.2-3.4); LYMPH% 3.1 % (20.5-51.1); MCH 24.7 PG (27-31); MCHC 30.9 g/dL (33-37); MCV 79.7 FL (81-99); MONO# 0.32 X1000 (0.11-0.59); MONO% 2.1 % (1.7-9.3); MPV 10.5 FL (7.4-10.4); NEUT# 14.42 X1000 (1.4-6.5); NEUT% 94.2 % (42.2-75.2); PLT 313 X1000 (130-400); RBC 4.34 XMIL (4.2-5.4); RDW 28.4 % (11.5-14.5); WBC 15.31 X1000 (4.8-10.8)
[2018-09-12 07:37] LABS: ESTIMATED GFR > 60
[2018-09-12 07:38] LABS: AGAP 13; ALB/GLOB RATIO 1.4; ALBUMIN 3.8 g/dL (3.5-5.0); ALKALINE PHOSPHATASE 549 U/L (32-104); BUN 19 mg/dL (8-22); CALCIUM 9.3 mg/dL (8.8-10.2); CHLORIDE 86 mmol/L (98-107); COSMO 263; CREATININE 0.4 mg/dL (0.5-0.9); GLUCOSE 123 mg/dL (70-104); GOT 134 U/L (10-30); GPT 127 U/L (10-36); POTASSIUM 4.6 mmol/L (3.5-5.1); SODIUM 129 mmol/L (136-145); TCO2 30 mmol/L (25-35); TOTAL BILIRUBIN 0.69 mg/dL (0.20-1.00); TOTAL PROTEIN 6.6 g/dL (6.3-8.3)
[2018-09-12] MEDS: MYCOSTATIN SUSP PO SCH ×4 (08:36→20:43)
[2018-09-12] MEDS: TYLENOL PO PRN (09:35)
[2018-09-12] MEDS: SEROQUEL PO SCH ×2 (10:14→20:44)
[2018-09-12] MEDS: MIRALAX PO SCH ×2 (10:15→20:43)
[2018-09-12] MEDS: LACTULOSE PO SCH ×2 (10:15→20:43)
[2018-09-12] MEDS: LIDODERM TOP SCH (10:15)
[2018-09-12] MEDS: LR 1,000 ML IV SCH ×2 (14:00)
--- NOTE | 2018-09-12 18:47 | PROGRESS NOTE ---
DATE: 09/12/2018 INTERVAL HISTORY: No acute overnight events. SUBJECTIVE: The patient mumbles a few words, does not make a lot of sense, but when we ask her to be a little more awake, she started complaining of pain, generalized body ache. She does not remember if she went for radiation today. Patient's daughter is at bedside, and plan of care discussed with her. OBJECTIVE: Current Vitals: Temperature of 98.1 degrees, pulse 87, respiratory rate 18, blood pressure 110/86, saturating 100% on room air. General: Does not appear to be in any acute distress. She is a little drowsy at the moment. Oral cavity is dry. She does have oral thrush. Respiratory: Air entry bilaterally equal. No wheeze, rhonchi, crackles. Cardiovascular: S1, S2 normal. No murmur, rub, or gallop. Abdomen: Soft, tender in epigastric region. Active bowel sounds. Extremities: No lower extremity edema, cyanosis, or clubbing. She is drowsy at the moment. Input and output suggest she had 2 bowel movement documented on September 10. LABS: Suggestive of persistent leukocytosis, hemoglobin of 10.7, platelet count of 313,000, eosinophil count of 0. Hyponatremia, hypochloremia, normal kidney function and acceptable range of hyperglycemia. No new microbiological or imaging data. ASSESSMENT AND PLAN: 1. Left breast metastatic cancer to lungs, liver and spine. The patient is on chemotherapy and also radiation therapy. Her last dose of radiation will be on 09/17/2018. 2. Cancer-related pain. Continue intravenous hydromorphone BOAT DETAILER pump, fentanyl patch and p.o. oxycodone. Continue Movantik to prevent constipation with lactulose and MiraLAX. 3. Unspecified schizophrenia type. The patient is on Seroquel. Continue alprazolam for anxiety and citalopram to help with sleep. 4. Leukocytosis in the setting of dexamethasone use and transaminitis related to liver metastasis, stable. DISPOSITION: After discussion with the Oncology team and patient's family, considering the transportation issue she might experience, we decided to keep patient inside the hospital until last radiation therapy, which is to be on 09/17/2018 at which point the patient will be discharged on Saturday. The patient's daughter is willing to take patient with her at her home. I have also requested a hospital bed to help with her care at home. Plan of care discussed with daughter and oncologist. All of their questions have been answered. cc: Derik Lucio MD
[2018-09-12] MEDS: LEXAPRO PO SCH (20:44)
[2018-09-13] MEDS: DECADRON PO SCH ×4 (00:10→18:15)
[2018-09-13] MEDS: XANAX PO SCH ×4 (02:08→20:15)
[2018-09-13] MEDS: HUMULIN R SUBQ SCH ×4 (06:14→21:32)
[2018-09-13] MEDS: PRILOSEC PO SCH (06:14)
[2018-09-13] MEDS: LOVENOX SUBQ SCH (06:14)
[2018-09-13] MEDS: OXY IR PO SCH ×2 (06:17→13:27)
[2018-09-13] MEDS: MOVANTIK PO SCH (06:45)
[2018-09-13 07:13] LABS: EOS# 0.01 X1000 (0.0-0.7); EOS% 0.1 % (0.0-10.0); HEMATOCRIT 37.8 % (37.0-47.0); HEMOGLOBIN 11.7 g/dL (12.0-16.0); IMM GRAN# 0.04 X1000 (0.0-0.04); IMM GRAN% 0.2 % (0.0-0.5); LYMPH# 0.89 X1000 (1.2-3.4); LYMPH% 5.3 % (20.5-51.1); MCH 25.1 PG (27-31); MCV 80.9 FL (81-99); MONO# 0.54 X1000 (0.11-0.59); MONO% 3.2 % (1.7-9.3); MPV 10.7 FL (7.4-10.4); NEUT# 15.19 X1000 (1.4-6.5); NEUT% 91.2 % (42.2-75.2); PLT 361 X1000 (130-400); RBC 4.67 XMIL (4.2-5.4); RDW 29.7 % (11.5-14.5); WBC 16.67 X1000 (4.8-10.8)
[2018-09-13 07:30] LABS: LYMPHS 6 % (21-51); MONO 4 % (1-9); SEGS 90 % (42-75)
[2018-09-13 07:31] LABS: ANISOCYTOSIS 1+
[2018-09-13 07:35] LABS: AGAP 8; ALB/GLOB RATIO 1.2; ALBUMIN 3.8 g/dL (3.5-5.0); ALKALINE PHOSPHATASE 578 U/L (32-104); BUN 21 mg/dL (8-22); CALCIUM 9.9 mg/dL (8.8-10.2); CHLORIDE 92 mmol/L (98-107); COSMO 275; CREATININE 0.6 mg/dL (0.5-0.9); ESTIMATED GFR > 60; GLUCOSE 94 mg/dL (70-104); GOT 126 U/L (10-30); GPT 133 U/L (10-36); POTASSIUM 4.6 mmol/L (3.5-5.1); SODIUM 136 mmol/L (136-145); TCO2 36 mmol/L (25-35); TOTAL BILIRUBIN 0.76 mg/dL (0.20-1.00); TOTAL PROTEIN 6.9 g/dL (6.3-8.3)
[2018-09-13] MEDS: SEROQUEL PO SCH ×2 (09:13→20:14)
[2018-09-13] MEDS: LIDODERM TOP SCH (09:13)
[2018-09-13] MEDS: MIRALAX PO SCH ×2 (09:18→20:14)
[2018-09-13] MEDS: LACTULOSE PO SCH ×2 (09:19→20:14)
[2018-09-13] MEDS: MYCOSTATIN SUSP PO SCH ×4 (09:19→20:14)
[2018-09-13] MEDS: DILAUDID-HP 30 MG in NS 27 ML IV PRN (09:58)
[2018-09-13] MEDS: LR 1,000 ML IV SCH (09:58)
--- NOTE | 2018-09-13 20:04 | PROGRESS NOTE ---
DATE: 09/13/2018 INTERVAL HISTORY: No acute events overnight. SUBJECTIVE: The patient is hyperoral and talkative. A lot of times, she speaks very anxiously and has racing of thoughts, which I could not understand. Patient's other daughter is at bedside. Plan of care discussed with her. OBJECTIVE: Vitals: Temperature 97.8, pulse 76, respiratory rate 18, blood pressure 110/84, saturating 100% on room air. General: On physical exam, the patient does not appear in any acute distress. ENT: Oral cavity is moist. Lungs: Air entry bilaterally equal. No wheeze, rhonchi, crackles. Heart: S1, S2 normal. No murmur, rub, or gallop. Abdomen: Diffuse abdominal tenderness, otherwise soft. She did have a bowel movement today. Extremities: No lower extremity edema. LABS: Persistent leukocytosis. Acceptable range of hemoglobin, hematocrit, and platelet count. She did have normal electrolytes most of the time, except low chloride and elevated BUN. No new microbiological data. No new imaging. ASSESSMENT AND PLAN: 1. Left breast metastatic cancer to lungs, liver and spine. The patient is on chemo radiation. The last dose of radiation will be 09/17/2018. Continue patient on dexamethasone, hydromorphone, [employer]ING [employer] MINER pump, lidocaine patch, oxycodone for pain control. Continue lactulose and Naloxegol or Movantik to ensure bowel movements with MiraLAX. 2. General anxiety disorder, plus a questionable history of schizophrenia. Continue patient on escitalopram, alprazolam, quetiapine. 3. Continue p.r.n. oxycodone and fentanyl patch for pain control as well. 4. Leukocytosis related to and dexamethasone use. 5. Transaminitis related to liver metastasis, stable. DISPOSITION: The patient remains inside the hospital. Initially, the plan was for patient to go with her first daughter and she had requested a hospital bed for that, but today I am informed that she would not be able to go home with her first daughter as she is working and patient would like to go home with her second daughter who is at bedside at the moment. The patient's second daughter also requests that we help her find a low-income housing so that she can take care of her mother. Plan of care discussed with both of them. I will update social work team about it. The patient's first daughter wanted me to fill out [place] paperwork. However, considering that patient is not going to live with her, I may not have to fill it out. cc: Derik Lucio MD MTDD
[2018-09-13] MEDS: LEXAPRO PO SCH (20:14)
[2018-09-13] MEDS: OXY IR PO PRN (20:15)
[2018-09-14] MEDS: XANAX PO SCH ×4 (04:04→22:22)
[2018-09-14] MEDS: TYLENOL PO PRN (04:05)
[2018-09-14] MEDS: HUMULIN R SUBQ SCH ×4 (06:05→22:27)
[2018-09-14] MEDS: DECADRON PO SCH ×4 (06:06→17:51)
[2018-09-14] MEDS: PRILOSEC PO SCH (06:06)
[2018-09-14] MEDS: MOVANTIK PO SCH (06:06)
[2018-09-14] MEDS: LOVENOX SUBQ SCH (06:06)
[2018-09-14 08:01] LABS: HEMATOCRIT 35.3 % (37.0-47.0); HEMOGLOBIN 10.8 g/dL (12.0-16.0); IMM GRAN# 0.06 X1000 (0.0-0.04); IMM GRAN% 0.4 % (0.0-0.5); LYMPH# 0.42 X1000 (1.2-3.4); MCHC 30.6 g/dL (33-37); MCV 81.7 FL (81-99); MONO# 0.29 X1000 (0.11-0.59); MONO% 2.1 % (1.7-9.3); MPV 10.7 FL (7.4-10.4); NEUT# 13.22 X1000 (1.4-6.5); NEUT% 94.5 % (42.2-75.2); PLT 303 X1000 (130-400); RBC 4.32 XMIL (4.2-5.4); RDW 29.7 % (11.5-14.5); WBC 13.99 X1000 (4.8-10.8)
[2018-09-14 08:26] LABS: AGAP 12; ALB/GLOB RATIO 1.1; ALBUMIN 3.6 g/dL (3.5-5.0); ALKALINE PHOSPHATASE 514 U/L (32-104); BUN 22 mg/dL (8-22); CHLORIDE 90 mmol/L (98-107); COSMO 273; CREATININE 0.5 mg/dL (0.5-0.9); ESTIMATED GFR > 60; GLUCOSE 162 mg/dL (70-104); GOT 105 U/L (10-30); GPT 123 U/L (10-36); POTASSIUM 4.5 mmol/L (3.5-5.1); SODIUM 133 mmol/L (136-145); TCO2 31 mmol/L (25-35); TOTAL BILIRUBIN 0.57 mg/dL (0.20-1.00); TOTAL PROTEIN 6.9 g/dL (6.3-8.3)
[2018-09-14] MEDS: SEROQUEL PO SCH ×2 (08:57→22:22)
[2018-09-14] MEDS: OXY IR PO PRN ×2 (08:57→16:56)
[2018-09-14] MEDS: MIRALAX PO SCH ×2 (08:58→22:23)
[2018-09-14] MEDS: LACTULOSE PO SCH ×2 (08:58→22:23)
[2018-09-14] MEDS: MYCOSTATIN SUSP PO SCH ×4 (08:58→22:22)
[2018-09-14] MEDS: LIDODERM TOP SCH (08:58)
--- NOTE | 2018-09-14 17:37 | PROGRESS NOTE ---
DATE: 09/14/2018 INTERVAL HISTORY: No acute overnight events. SUBJECTIVE: Patient is anxious. Denies any complaints. Does not appear to be in any distress. However, she is very anxious. She is complaining of back sore. However, that does not appear to be on a bony prominence. OBJECTIVE: Vital signs: Currently temperature 97.2 degrees, pulse 87, respiratory rate 16, blood pressure 120/83, saturating 99% on room air. General: The patient is extremely anxious and fidgety. She is hyperverbal and continues to have racing of thoughts. Oral cavity is moist. Lungs: Air entry bilaterally equal. No wheeze, rhonchi, crackles. Cardiovascular: S1, S2 normal. No murmur, rub, or gallop. Abdomen: There is diffuse abdominal tenderness. There is also hepatomegaly and mild ascites. Musculoskeletal: She has diffuse bony pain affecting bilateral arms, legs, ribs, and back. Skin: The gluteal region, there is about 1 cm skin tear that I could see without any infection. It does not appear to be on a bony prominence. LABORATORY DATA: Labs suggestive of leukocytosis, likely because of dexamethasone use, hemoglobin of 10.8, platelet count of 303,000. Hyponatremia and hypochloremia, however, in acceptable range. Normal kidney function. MICROBIOLOGY: No new microbiological data. IMAGING: No new imaging data. ASSESSMENT AND PLAN: 1. Left breast invasive mammary carcinoma, metastatic to bones, ribs, and liver, estrogen receptor positive, progesterone receptor negative, HER-2 receptor negative. The patient had received chemotherapy with Abraxane and Avastin by Oncology and has been receiving radiation 5 days a week. Last day of radiation would be 09/17/2018. Continue patient on dexamethasone, hydromorphone CONVEYANCER pump, lidocaine patch, fentanyl patch, and p.r.n. oxycodone. Continue lactulose and naloxegol (Movantik) to ensure bowel movement, along with MiraLAX. At the time of discharge hopefully on Saturday, the patient will be discharged on p.o. oxycodone with fentanyl patch. Appreciate Oncology recommendation on that. 2. General anxiety disorder and history of schizophrenia. Continue patient on escitalopram, alprazolam, and quetiapine. 3. Leukocytosis related to dexamethasone use. Aware. Her urine culture on admission did not have any growth. She has not had any fever or tachycardia. 4. Transaminitis, likely related to liver metastasis, stable. DISPOSITION: Today, I was told that the patient is going to the first daughter that I had talked to, who is willing to take care of the patient at home. She had requested a hospital bed and [facility] paperwork that I will fill out. Plan is to discharge her home on Saturday. cc: Derik Lucio MD
[2018-09-14] MEDS: DURAGESIC 25 MICROGM/HR PATCH TD SCH (17:51)
[2018-09-14] MEDS: LR 1,000 ML IV SCH (20:29)
[2018-09-14] MEDS: LEXAPRO PO SCH (22:23)
[2018-09-15] MEDS: DECADRON PO SCH ×4 (00:54→18:01)
[2018-09-15] MEDS: XANAX PO SCH ×4 (03:01→22:27)
[2018-09-15] MEDS: LR 1,000 ML IV SCH ×2 (04:53→08:13)
[2018-09-15] MEDS: DILAUDID-HP 30 MG in NS 27 ML IV PRN (04:54)
[2018-09-15] MEDS: HUMULIN R SUBQ SCH ×3 (06:28→15:40)
[2018-09-15] MEDS: MOVANTIK PO SCH (06:31)
[2018-09-15] MEDS: PRILOSEC PO SCH (06:32)
[2018-09-15] MEDS: LOVENOX SUBQ SCH (06:32)
[2018-09-15] MEDS: LACTULOSE PO SCH ×2 (08:14→22:18)
[2018-09-15] MEDS: MYCOSTATIN SUSP PO SCH ×4 (08:14→22:17)
[2018-09-15] MEDS: MIRALAX PO SCH ×2 (08:14→22:18)
[2018-09-15] MEDS: LIDODERM TOP SCH (08:14)
[2018-09-15] MEDS: SEROQUEL PO SCH ×2 (08:14→22:30)
[2018-09-15 08:15] LABS: BASO# 0.02 X1000 (0.0-0.2); BASO% 0.1 % (0.0-0.8); HEMATOCRIT 33.8 % (37.0-47.0); HEMOGLOBIN 10.3 g/dL (12.0-16.0); IMM GRAN# 0.15 X1000 (0.0-0.04); IMM GRAN% 0.9 % (0.0-0.5); LYMPH# 0.84 X1000 (1.2-3.4); LYMPH% 5.1 % (20.5-51.1); MCH 25.1 PG (27-31); MCHC 30.5 g/dL (33-37); MCV 82.2 FL (81-99); MONO# 0.64 X1000 (0.11-0.59); MONO% 3.9 % (1.7-9.3); MPV 10.6 FL (7.4-10.4); NEUT# 14.88 X1000 (1.4-6.5); PLT 331 X1000 (130-400); RBC 4.11 XMIL (4.2-5.4); RDW 29.7 % (11.5-14.5); WBC 16.53 X1000 (4.8-10.8)
[2018-09-15 08:27] LABS: AGAP 10; ALB/GLOB RATIO 1.1; ALBUMIN 3.7 g/dL (3.5-5.0); ALKALINE PHOSPHATASE 517 U/L (32-104); BUN 19 mg/dL (8-22); CALCIUM 9.1 mg/dL (8.8-10.2); CHLORIDE 91 mmol/L (98-107); COSMO 272; CREATININE 0.5 mg/dL (0.5-0.9); ESTIMATED GFR > 60; GLUCOSE 117 mg/dL (70-104); GOT 110 U/L (10-30); GPT 130 U/L (10-36); POTASSIUM 4.7 mmol/L (3.5-5.1); SODIUM 134 mmol/L (136-145); TCO2 33 mmol/L (25-35); TOTAL BILIRUBIN 0.51 mg/dL (0.20-1.00)
[2018-09-15 08:45] LABS: ANISOCYTOSIS 2+; HYPOCHROM 2+; LYMPHS 6 % (21-51); SEGS 94 % (42-75)
[2018-09-15] MEDS: OXY IR PO PRN ×2 (11:53→22:16)
[2018-09-15] MEDS ORDERED: CALMOSEPTINE OINTMENT TOP PRN (15:09)
--- NOTE | 2018-09-15 20:31 | PROGRESS NOTE ---
DATE: 09/15/2018 INTERVAL HISTORY: No acute events overnight. SUBJECTIVE: The patient denies any complaints. We discussed about the fact that I have filled out her FMLA paperwork for her daughter, and it is in her chart. The patient denies new complaints. OBJECTIVE: Current Vitals Evaluation: Suggests temperature of 97.9 degrees, pulse 66, respiratory rate 18, blood pressure 117/80, saturating 98% on room air. General: Appears cachectic with protein energy malnutrition, anxious and fidgety. She is hyperverbal. Continues to have racing of thoughts. HEENT: Oral cavity is moist. Lungs: Air entry bilaterally. No wheeze, rhonchi or crackles. Cardiovascular: S1 and S2 normal. No murmur, rub or gallop. Abdomen: Has diffuse abdominal tenderness. There is also hepatomegaly and mild ascites. Musculoskeletal: Diffuse bony pain affecting bilateral arms, legs, ribs and back. She has about 1 cm skin tear on the back of left thigh around gluteal region, not on bony prominence. LABS: Suggestive of persistent leukocytosis, normocytic anemia, stable platelet count, 0% eosinophil count, hyponatremia, hypochloremia, and normal kidney function. No new microbiological data. ASSESSMENT AND PLAN: 1. Left breast invasive mammary carcinoma, metastatic to bones, ribs and liver, estrogen receptor positive, progesterone receptor negative, HER-2 receptor negative. The patient had received chemotherapy with Abraxane and Avastin by Oncology and has been receiving radiation 5 days a week. Last day of radiation would be 09/17/2018. Continue patient on dexamethasone, hydromorphone WEARING [employer]PAREL SHAKER pump, lidocaine patch, fentanyl patch and p.r.n. oxycodone. Continue lactulose and Movantik to ensure bowel movements along with MiraLAX. At the time of discharge hopefully on Saturday, the patient will be discharged on p.o. oxycodone with fentanyl patch. Appreciate Oncology on board. 2. General anxiety disorder with history of schizophrenia. Continue on citalopram, alprazolam and quetiapine. 3. Leukocytosis related to dexamethasone use, aware. Her urine culture on admission did not have any growth. She has not had any fever or tachycardia. She denies any cough or shortness of breath. 4. Transaminitis likely related to liver metastasis, now stable. DISPOSITION: The patient will likely be discharged to the patient's daughter Cecille's house on Saturday. I will talk with the social work professor team about requests for hospital bed. Plan of care discussed with the patient. All of her questions have been answered. cc: Derik Lucio MD
[2018-09-15] MEDS: LEXAPRO PO SCH (22:17)
[2018-09-16] MEDS: HUMULIN R SUBQ SCH ×4 (03:07→16:18)
[2018-09-16] MEDS: DECADRON PO SCH ×6 (03:34→22:02)
[2018-09-16] MEDS: LR 1,000 ML IV SCH ×2 (04:00→08:14)
[2018-09-16] MEDS: XANAX PO SCH ×4 (04:46→22:02)
[2018-09-16] MEDS: DILAUDID-HP 30 MG in NS 27 ML IV PRN (05:30)
[2018-09-16] MEDS: OXY IR PO PRN ×2 (06:27→17:08)
[2018-09-16] MEDS: MOVANTIK PO SCH (06:27)
[2018-09-16] MEDS: PRILOSEC PO SCH (06:27)
[2018-09-16] MEDS: LOVENOX SUBQ SCH (06:28)
[2018-09-16 07:32] LABS: BASO# 0.03 X1000 (0.0-0.2); BASO% 0.3 % (0.0-0.8); HEMATOCRIT 33.9 % (37.0-47.0); HEMOGLOBIN 10.4 g/dL (12.0-16.0); IMM GRAN# 0.22 X1000 (0.0-0.04); IMM GRAN% 1.9 % (0.0-0.5); LYMPH# 0.65 X1000 (1.2-3.4); LYMPH% 5.5 % (20.5-51.1); MCH 25.1 PG (27-31); MCHC 30.7 g/dL (33-37); MCV 81.7 FL (81-99); MONO# 0.83 X1000 (0.11-0.59); MPV 10.4 FL (7.4-10.4); NEUT# 10.16 X1000 (1.4-6.5); NEUT% 85.3 % (42.2-75.2); PLT 322 X1000 (130-400); RBC 4.15 XMIL (4.2-5.4); RDW 29.9 % (11.5-14.5); WBC 11.89 X1000 (4.8-10.8)
[2018-09-16 07:54] LABS: ESTIMATED GFR > 60
[2018-09-16 07:56] LABS: AGAP 14; ALB/GLOB RATIO 1.2; ALBUMIN 3.5 g/dL (3.5-5.0); ALKALINE PHOSPHATASE 523 U/L (32-104); BUN 19 mg/dL (8-22); CHLORIDE 89 mmol/L (98-107); COSMO 267; CREATININE 0.4 mg/dL (0.5-0.9); GLUCOSE 105 mg/dL (70-104); GOT 106 U/L (10-30); GPT 131 U/L (10-36); POTASSIUM 4.6 mmol/L (3.5-5.1); SODIUM 132 mmol/L (136-145); TCO2 29 mmol/L (25-35); TOTAL BILIRUBIN 0.46 mg/dL (0.20-1.00); TOTAL PROTEIN 6.5 g/dL (6.3-8.3)
[2018-09-16 07:58] LABS: LYMPHS 7 % (21-51); MONO 6 % (1-9); SEGS 87 % (42-75)
[2018-09-16] MEDS: MYCOSTATIN SUSP PO SCH ×4 (08:13→22:02)
[2018-09-16] MEDS: MIRALAX PO SCH ×2 (08:13→22:02)
[2018-09-16] MEDS: LIDODERM TOP SCH (08:13)
[2018-09-16] MEDS: SEROQUEL PO SCH ×2 (08:14→22:02)
[2018-09-16] MEDS: LACTULOSE PO SCH ×2 (09:52→22:03)
[2018-09-16] MEDS ORDERED: [UNRECOGNIZED DRUG - OTHER] IV ONE (13:00)
[2018-09-16] MEDS ORDERED: DILUENT IV ONE (13:00)
[2018-09-16] MEDS ORDERED: NS 100 ML IV ONE (13:30)
[2018-09-16] MEDS ORDERED: ZOFRAN 16 MG, DECADRON 10 MG in NS 50 ML IV ONE (14:00)
--- NOTE | 2018-09-16 19:58 | PROGRESS NOTE ---
DATE: 09/16/2018 INTERVAL HISTORY: No acute events overnight. SUBJECTIVE: She is denying any new complaints. The patient's sister is at bedside. Plan of care discussed with her. OBJECTIVE: Vital signs: Temperature 97.9 degrees, pulse 77, respiratory rate 125/81, saturating 97% on room air. General: Does not appear in any acute distress. She has protein energy malnutrition. Appears a little anxious and is hyperverbal. HEENT: Oral cavity is moist. No oral thrush. Lungs: Air entry bilaterally equal. No wheeze, rhonchi or crackles. Cardiovascular: S1, S2 normal. No murmur, rub, or gallop. Abdomen: Soft. She appears to have hepatomegaly and ascites. She appears cachectic. She has diffuse bony pain affecting entire body. LABORATORIES: Essentially stable with leukocytosis. ASSESSMENT AND PLAN: 1. 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 The patient received chemotherapy with Abraxane and Avastin by Oncology and has been receiving radiation 5 days a week. Last day of radiation will be 09/17/2018. Continue patient on dexamethasone, hydromorphone CASH PROCESSING SPECIALIST, lidocaine patch, fentanyl patch and p.r.n. oxycodone. Continue lactulose and Movantik to ensure bowel movements along with MiraLAX. Plan is to discharge her home tomorrow on p.o. oxycodone, fentanyl patch. Oncology and Radiation Oncology on board. 2. General anxiety disorder with history of schizophrenia. Continue citalopram, alprazolam and quetiapine. 3. Leukocytosis related a dexamethasone use, stable. 4. Transaminitis related to liver metastasis, stable. DISPOSITION: The patient remains inside the hospital. Plan is to be discharged tomorrow home. cc: Derik Lucio MD
[2018-09-16] MEDS: LEXAPRO PO SCH (22:02)
[2018-09-17] MEDS: XANAX PO SCH ×3 (03:54→14:35)
[2018-09-17] MEDS: DECADRON PO SCH ×4 (03:57→14:35)
[2018-09-17] MEDS: HUMULIN R SUBQ SCH ×3 (03:59→11:16)
[2018-09-17] MEDS: OXY IR PO PRN (04:12)
[2018-09-17] MEDS: PRILOSEC PO SCH (06:59)
[2018-09-17] MEDS: MOVANTIK PO SCH (07:00)
[2018-09-17] MEDS: LOVENOX SUBQ SCH ×2 (07:00→07:03)
[2018-09-17] MEDS: MYCOSTATIN SUSP PO SCH ×2 (08:08→14:35)
[2018-09-17] MEDS: SEROQUEL PO SCH (08:09)
[2018-09-17] MEDS: MIRALAX PO SCH (08:11)
[2018-09-17] MEDS: LACTULOSE PO SCH (08:11)
[2018-09-17] MEDS: LIDODERM TOP SCH (08:12)
[2018-09-17] MEDS: TYLENOL PO PRN (11:16)
[2018-09-17 11:51] VITALS: BP 122/76
--- NOTE | 2018-09-17 14:41 | PROGRESS NOTE ---
DATE: 09/17/2018 INTERVAL HISTORY: She got a dose of Abraxane yesterday by Dr. Yi. Today, she got her last dose of radiation therapy. SUBJECTIVE: The patient is complaining of pain. The patient's daughter, Cecille, who is the surrogate decision maker, is at bedside. Plan of care discussed with the patient that they are going to discharge the patient. All of their questions have been answered. PHYSICAL EXAMINATION: Current Vital Signs: Temperature 97.4 degrees, pulse 90, respiratory rate 16, blood pressure 122/76, saturating 99% on room air. General: Does not appear in any acute distress. She has marked protein energy malnutrition. She is very anxious and hyperverbal as she has been throughout this hospital admission. HEENT: Oral cavity is moist. No oral thrush. Lungs: Air entry bilaterally equal. No wheeze, rhonchi, crackles. Heart: S1, S2 normal. No murmur, rub, or gallop. Abdomen: Soft. She appears to have hepatomegaly and ascites. She appears cachectic. She is complaining of diffuse bony pain affecting her entire body. LABORATORY DATA: No new labs today. ASSESSMENT AND PLAN: 1. 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 The patient received Abraxane and Avastin by Oncology 1 week prior, and she received another dose of Abraxane yesterday. She is status post radiation. The last dose has been on 09/17/2018. Continue the patient on dexamethasone as an appetite stimulant and quality of life, stop hydromorphone patient-controlled analgesia, continue the patient on as needed oxycodone, fentanyl patch, lidocaine patch, acetaminophen for pain management, continue lactulose and MiraLAX for bowel movements, with Movantik. Plan is to discharge her home on oral oxycodone, fentanyl patch, and acetaminophen with lidocaine patch. Previously, the plan was discussed with the Oncology Team, and they were in agreement. 2. General anxiety disorder with history of schizophrenia. Continue the patient on alprazolam, citalopram, and quetiapine. The patient has been instructed about following up with regular doctor, and discussed about discontinuing unnecessary medication based on clinical course, and get repeat blood work with electrocardiogram to monitor QTc. 3. Leukocytosis related to dexamethasone use. She denies any urinary symptoms. She denies any cough, and currently leukocytosis was stable. 4. Transaminitis during hospital admission. This was related to liver metastasis. It was stable. 5. Disposition. The patient's daughter, Cecille, agreed for the patient's discharge to home, and so did the patient. We discussed about metastatic breast cancer in general, possible complication, risk for deep venous thrombosis, repeated infections, repeated hospitalization, and multiple falls. I answered all of her questions. I reiterated the importance of regular physician followup. I have also filled out [facility] paperwork, and had answered all of her questions. cc: Derik Lucio MD
[2018-09-17] MEDS: DURAGESIC 25 MICROGM/HR PATCH TD SCH (16:07)
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
== END 2018-09-17 17:23 | disposition home or self-care (01) | DRG 598 ==
LOC: P.ED 19:24 → SUATTDRO 08-30 00:11 → 3N 08-30 00:11
PROVIDERS: ATTEND Internal Medicine
CPT/HCPCS: 36569; 70553; 71260; 72157; 72158; 74177; 76641; 77062; 77066; 78306; 80048; 80053; 80104; 80301; 80305; 81001; 82150; 82607; 82728; 82746; 82948; 83540; 83550; 83690; 83735; 84100; 85025; 85027; 85045; 85610; 87088; 88305; 96361; 96374; 99285; A9270; A9503; A9579; G0204; G0279; G0431; G0434; G0477; J0897; J1170; J1200; J1650; J1756; J1885; J2060; J2270; J2405; J2550; J7030; J7050; J7120; J8540; J9035; J9264; Q9967; XXXXX

== ENCOUNTER 2018-10-14 21:19 | Inpatient (IN) ==
[2018-10-14] MEDS ORDERED: MORPHINE IV ONE (21:58)
[2018-10-14] MEDS ORDERED: ZOSYN 4.5 GM in NS 100 ML IV ONE (22:08)
[2018-10-14 22:21] LABS: BASO# 0.38 X1000 (0.0-0.2); BASO% 0.9 % (0.0-0.8); EOS# 0.01 X1000 (0.0-0.7); HEMATOCRIT 35.4 % (37.0-47.0); HEMOGLOBIN 11.5 g/dL (12.0-16.0); IMM GRAN# 3.97 X1000 (0.0-0.04); IMM GRAN% 9.4 % (0.0-0.5); LYMPH# 2.61 X1000 (1.2-3.4); LYMPH% 6.2 % (20.5-51.1); MCH 26.9 PG (27-31); MCHC 32.5 g/dL (33-37); MCV 82.7 FL (81-99); MONO# 1.46 X1000 (0.11-0.59); MONO% 3.5 % (1.7-9.3); MPV 9.5 FL (7.4-10.4); NEUT# 33.59 X1000 (1.4-6.5); PLT 341 X1000 (130-400); RBC 4.28 XMIL (4.2-5.4); RDW 34.1 % (11.5-14.5); WBC 42.02 X1000 (4.8-10.8)
[2018-10-14 22:47] LABS: BANDS 1 % (0-1); LYMPHS 7 % (21-51); MONO 5 % (1-9); SEGS 82 % (42-75)
[2018-10-14 22:48] LABS: ANISOCYTOSIS 1+; HYPOCHROM 1+
[2018-10-14 22:57] LABS: AGAP 14; ALB/GLOB RATIO 0.8; ALBUMIN 2.9 g/dL (3.5-5.0); ALKALINE PHOSPHATASE 2142 U/L (32-104); BUN 14 mg/dL (8-22); CALCIUM 7.5 mg/dL (8.8-10.2); CHLORIDE 97 mmol/L (98-107); COSMO 272; CREATININE 0.6 mg/dL (0.5-0.9); ESTIMATED GFR > 60; GLUCOSE 86 mg/dL (70-104); GOT 79 U/L (10-30); GPT 45 U/L (10-36); POTASSIUM 3.7 mmol/L (3.5-5.1); SODIUM 136 mmol/L (136-145); TCO2 25 mmol/L (25-35); TOTAL BILIRUBIN 0.55 mg/dL (0.20-1.00); TOTAL PROTEIN 6.6 g/dL (6.3-8.3)
[2018-10-14 23:04] LABS: URINE SOURCE CLEAN CATCH
[2018-10-14] MEDS ORDERED: DILAUDID IV ONE (23:08)
[2018-10-14] MEDS ORDERED: VANCOMYCIN 1 GM/NS 1 GM/250 ML IVPB IV ONE (23:08)
[2018-10-14] MEDS ORDERED: NS 1,000 ML IV ONE (23:10)
[2018-10-14 23:35] LABS: BILIRUBIN URINE NEGATIVE (NEGATIVE); BLOOD URINE NEGATIVE (NEGATIVE); COLOR YELLOW; GLUCOSE URINE NEGATIVE (NEGATIVE); KETONE URINE NEGATIVE (NEGATIVE); LEUKOCYTES URINE NEGATIVE (NEGATIVE); NITRITE URINE NEGATIVE (NEGATIVE); PH URINE 6.5; PROTEIN URINE NEGATIVE (NEGATIVE); SP GRAVITY URINE 1.005; TURBIDITY URINE CLEAR (CLEAR); UR EPITHELIAL CELLS <10 /HPF (<10); URINE BACTERIA NEGATIVE /HPF; URINE RBC <10 /HPF (<10); URINE WBC <10 /HPF (<10); UROBILINOGEN URINE 2 mg/dL (NORMAL)
[2018-10-14] MEDS ORDERED: TYLENOL PO ONE (23:41)
[2018-10-15] MEDS ORDERED: BENTYL IM ONE (00:12)
[2018-10-15] MEDS ORDERED: NS 1,000 ML IV ONE (01:00)
[2018-10-15] MEDS ORDERED: DILAUDID IV ONE (01:58)
[2018-10-15] MEDS ORDERED: TORADOL IV ONE (01:58)
[2018-10-15] MEDS ORDERED: ATIVAN ONE (02:05)
[2018-10-15] MEDS ORDERED: ATIVAN IV ONE (02:09)
--- NOTE | 2018-10-15 02:17 | PROVIDER DOCUMENTATION ---
HPI-General Adult - General Chief Complaint: Abdominal Pain Stated Complaint: abd pain Time Seen by Provider: 10/14/18 21:30 Source: patient Allergies/Adverse Reactions: Patient Allergies Allergy/AdvReac Type Severity Reaction Status Date / Time No Known Allergies Allergy Verified 10/15/18 00:09 Home Medications: Home Medication List Medication Instructions Recorded Confirmed Last Taken Type Acetaminophen [Tylenol] 650 mg PO Q6H PRN PRN #30 tab 09/17/18 10/15/18 10/14/18 20:00 Rx Dexamethasone [Decadron] 4 mg PO DAILY #30 tab 09/17/18 10/15/18 10/14/18 20:00 Rx Escitalopram [Lexapro] 20 mg PO QHS #30 tab 09/17/18 10/15/18 10/14/18 20:00 Rx Fentanyl 25 Microgm/Hr Patch 1 ea TD Q72H #10 patch 09/17/18 10/15/18 10/12/18 20:00 Rx [Duragesic 25 Microgm/Hr Patch] Omeprazole [Prilosec] 40 mg PO DAILY@0700 #15 cap 09/17/18 10/15/18 10/14/18 06:30 Rx Oxycodone I.r. [Oxy Ir] 15 mg PO Q8H PRN PRN #48 tab 09/17/18 10/15/18 10/14/18 20:00 Rx Promethazine [Phenergan] 12.5 mg PO Q6H PRN PRN #30 tab 09/17/18 10/15/18 10/14/18 20:00 Rx Quetiapine [Seroquel] 12.5 mg PO BID #50 tab 09/17/18 10/15/18 10/14/18 20:00 Rx Lidocaine 5% Patch [Lidoderm] 1 ea TOP QHS 10/15/18 10/15/18 10/13/18 20:00 History - History of Present Illness -Gen Adult Nature of Presenting Problems: 48 yof presents c/o abd pain. pt has hx of breast and bone cancer and takes fentanyl and lidocaine and nothing helps w/pain. pt denies gu symptoms, nvd. RUQ abd pain, constant. no exacerbating or relieving factors. report recent abscess drainage in the rt buttock. Review of Systems - Adult - REVIEW OF SYSTEMS - ADULT Constitutional: reports: no symptoms reported Cardiovascular: reports: see HPI (chest wall pain) Respiratory: reports: no symptoms reported Gastrointestinal: reports: see HPI Past History - Adult - PAST MEDICAL HISTORY-ADULT Review of Records: reports: Old Records Reviewed Major Childhood Illnesses: reports: denies history Cardiovascular: reports: denies history Respiratory: reports: denies history Gastrointestinal: reports: denies history Obstetrical/Gynecological: reports: denies history Genitourinary: reports: denies history Musculoskeletal: reports: denies history Neurological: reports: denies history Psychiatric: reports: anxiety Endocrine/Immune: reports: denies history Other Conditions: reports: denies history - PRIOR SURGERIES/PROCEDURES Surgical/Procedure History: reports: cholecystectomy - IMMUNIZATION STATUS Childhood Immunizations: See Nurse Assessment Flu Vaccine: See Nurse Assessment - FAMILY HISTORY Family History: reviewed, not pertinent Physical Exam-General - CONSTITUTIONAL General Appearance: alert, mild distress, other (crying from pain) - EYES Eyes: PERRL/EOMI - HEAD, EARS, NOSE, MOUTH & THROAT HENMT: normocephalic/atraumatic, moist mucous membranes - NECK Neck: non-tender, full range of motion, supple - RESPIRATORY Respiratory: lungs clear, normal breath sounds - CARDIOVASCULAR Cardiovascular: normal peripheral pulses, regular rate, rhythm - GASTROINTESTINAL (ABDOMEN) Abdominal Exam: normal bowel sounds, guarding, tenderness (RUQ) - SKIN Integumentary: other (small incision in the rt buttock with yellow discharge.) - NEUROLOGIC Neurologic: grossly normal - PSYCHIATRIC Psych/Mental Status: oriented x 3 Progress - PLAN OF CARE/RESULTS Progress/Plan/Lab Results: Vital Signs - 8 hr 10/14/18 21:29 10/14/18 21:30 10/14/18 21:40 Temperature Pulse Rate Respiratory Rate Blood Pressure O2 Sat by Pulse Oximetry 99 99 98 10/14/18 21:50 10/14/18 22:00 10/14/18 22:10 Temperature 100.5 F H Pulse Rate 103 H Respiratory Rate 20 Blood Pressure 133/97 O2 Sat by Pulse Oximetry 99 97 100 10/14/18 22:20 10/14/18 22:30 10/14/18 22:40 Temperature Pulse Rate Respiratory Rate Blood Pressure O2 Sat by Pulse Oximetry 99 98 98 10/14/18 22:50 10/14/18 23:00 10/14/18 23:10 Temperature Pulse Rate 103 H Respiratory Rate Blood Pressure O2 Sat by Pulse Oximetry 97 97 97 10/14/18 23:34 10/14/18 23:38 10/14/18 23:40 Temperature Pulse Rate 103 H 103 H Respiratory Rate Blood Pressure 135/98 O2 Sat by Pulse Oximetry 97 97 97 10/14/18 23:50 10/15/18 00:00 10/15/18 00:10 Temperature Pulse Rate Respiratory Rate Blood Pressure O2 Sat by Pulse Oximetry 93 L 97 97 10/15/18 00:20 10/15/18 00:30 10/15/18 00:40 Temperature Pulse Rate Respiratory Rate Blood Pressure O2 Sat by Pulse Oximetry 97 97 97 10/15/18 00:50 10/15/18 01:00 10/15/18 01:10 Temperature Pulse Rate Respiratory Rate Blood Pressure O2 Sat by Pulse Oximetry 97 96 90 L 10/15/18 01:20 10/15/18 01:30 10/15/18 01:40 Temperature Pulse Rate Respiratory Rate Blood Pressure O2 Sat by Pulse Oximetry 97 97 97 10/15/18 01:50 10/15/18 02:00 10/15/18 02:10 Temperature Pulse Rate Respiratory Rate Blood Pressure O2 Sat by Pulse Oximetry 97 97 97 Laboratory Results - last 24 hr 10/14/18 10/14/18 10/14/18 21:46 21:46 21:46 WBC 42.02 H RBC 4.28 Hgb 11.5 L Hct 35.4 L MCV 82.7 MCH 26.9 L MCHC 32.5 L RDW Std Deviation 34.1 H Plt Count 341 MPV 9.5 Immature Gran % (Auto) 9.4 H Neut % (Auto) 80.0 H Lymph % (Auto) 6.2 L Ocean % (Auto) 3.5 Eos % (Auto) 0.0 Baso % (Auto) 0.9 H Immature Gran # (Auto) 3.97 H Neut # (Auto) 33.59 H Lymph # (Auto) 2.61 Ocean # (Auto) 1.46 H Eos # (Auto) 0.01 Baso # (Auto) 0.38 H Segmented Neutrophils 82 H Band Neutrophils 1 Lymphocytes 7 L Monocytes 5 Metamyelocytes 5.0 Pathologist Review Hypochromia 1+ Anisocytosis 1+ Sodium 136 Potassium 3.7 Chloride 97 L Carbon Dioxide 25 Anion Gap 14 BUN 14 Creatinine 0.6 Estimated GFR/1.73 m2 > 60 BUN/Creatinine Ratio 23 Glucose 86 Calculated Osmolality 272 Calcium 7.5 L Total Bilirubin 0.55 AST 79 H ALT 45 H Alkaline Phosphatase 2142 H Total Protein 6.6 Albumin 2.9 L Globulin 3.7 Albumin/Globulin Ratio 0.8 Amylase Lipase 86 H Plasma Lactate Urine Source Urine Color Urine Turbidity Urine pH Ur Specific [place] Urine Protein Ur Glucose (Stick) Ur Ketones (Stick) Urine Blood Urine Nitrite Urine Bilirubin Urobilinogen Dipstick Urine Leukocytes Urine WBC (Auto) Urine RBC (Auto) U Epithel Cells (Auto) Urine Bacteria (Auto) 10/14/18 10/14/18 10/14/18 21:46 22:18 22:21 WBC RBC Hgb Hct MCV MCH MCHC RDW Std Deviation Plt Count MPV Immature Gran % (Auto) Neut % (Auto) Lymph % (Auto) Ocean % (Auto) Eos % (Auto) Baso % (Auto) Immature Gran # (Auto) Neut # (Auto) Lymph # (Auto) Ocean # (Auto) Eos # (Auto) Baso # (Auto) Segmented Neutrophils Band Neutrophils Lymphocytes Monocytes Metamyelocytes Pathologist Review Hypochromia Anisocytosis Sodium Potassium Chloride Carbon Dioxide Anion Gap BUN Creatinine Estimated GFR/1.73 m2 BUN/Creatinine Ratio Glucose Calculated Osmolality Calcium Total Bilirubin AST ALT Alkaline Phosphatase Total Protein Albumin Globulin Albumin/Globulin Ratio Amylase 64 Lipase Plasma Lactate 2.5 H Urine Source CLEAN CATCH Urine Color YELLOW Urine Turbidity CLEAR Urine pH 6.5 Ur Specific [place] 1.005 Urine Protein NEGATIVE Ur Glucose (Stick) NEGATIVE Ur Ketones (Stick) NEGATIVE Urine Blood NEGATIVE Urine Nitrite NEGATIVE Urine Bilirubin NEGATIVE Urobilinogen Dipstick 2 A Urine Leukocytes NEGATIVE Urine WBC (Auto) <10 Urine RBC (Auto) <10 U Epithel Cells (Auto) <10 Urine Bacteria (Auto) NEGATIVE Orders Category Date Time Status CT ABD/PELVIS W/IV CONT ONLY [CT] Stat Exams 10/14/18 23:11 Taken cxr [CHEST-PORTABLE] [RAD] Stat Exams 10/14/18 22:29 Taken AMYLASE [CHEM] Stat Lab 10/14/18 21:46 Completed BLOOD CULTURE [BLDCUL] Stat Lab 10/15/18 02:10 Ordered CBC WITH ELECTRONIC DIFF [HEME] Stat Lab 10/14/18 21:46 Completed CMP [COMPREHENSIVE METABOLIC PANEL] [CHEM] Stat Lab 10/14/18 21:46 Completed LACTATE, PLASMA [CHEM] Stat Lab 10/14/18 22:18 Completed LIPASE [CHEM] Stat Lab 10/14/18 21:46 Completed URINALYSIS W/POSS RFLX CULT [URINALYSIS] Stat Lab 10/14/18 22:21 Completed 0.9% Sodium Chloride Inj [Ns] 1,000 ml Med 10/14/18 23:10 Discontinued IV 999 mls/hr 0.9% Sodium Chloride Inj [Ns] 1,000 ml Med 10/15/18 01:00 Discontinued IV 999 mls/hr Acetaminophen [Tylenol] Med 10/14/18 23:41 Discontinued 325 mg PO NOW ONE Dicyclomine [Bentyl] Med 10/15/18 00:12 Discontinued 20 mg IM NOW ONE Hydromorphone [Dilaudid] Med 10/14/18 23:08 Discontinued 1 mg IV NOW ONE Hydromorphone [Dilaudid] Med 10/15/18 01:58 Discontinued 2 mg IV NOW ONE Ketorolac [Toradol] Med 10/15/18 01:58 Discontinued 15 mg IV NOW ONE Lorazepam [Ativan] Med 10/15/18 02:09 Discontinued 1 mg IV NOW ONE Lorazepam [Ativan] Med 10/15/18 02:05 Discontinued 2 mg .ROUTE .STK-MED ONE Morphine Med 10/14/18 21:58 Discontinued 8 mg IV NOW ONE Piperacillin/Tazobactam [Zosyn] 4.5 gm Med 10/14/18 22:08 Discontinued 0.9% Sodium Chloride Inj [Ns] 100 ml IV NOW Vancomycin 1 gm/Ns Med 10/14/18 23:08 Discontinued 1 gm in 250 ml IV NOW Result Diagrams: 10/15/18 05:59 10/15/18 05:59 - REASSESSMENT Reassessment #1 Status: unchanged Reassessment #2 Status: improving - CONSULTS/PCP/HOSPITALIST Notification #1 *Consult/PCP/Hospitalist*: Dr. Brooks Time Discussed: 01:40 Consult Disposition: Admit (Hx, PE and patient care discussed, accepted.) Departure - Departure Date of Disposition Decision: 10/15/18 Time of Disposition Decision: 01:40 DIAGNOSIS: Abdominal pain Qualifiers: Abdominal location: unspecified location Qualified Code(s): R10.9 - Unspecified abdominal pain Sepsis Qualifiers: Sepsis type: sepsis due to unspecified organism Qualified Code(s): A41.9 - Sepsis, unspecified organism Disposition: ADMITTED INPATIENT 09 Certified Medical Emergency: Emergent Condition: Serious - Critical Care Note This patient required my direct & personal management of CC.: No Attestation - Physician/ SAVANA Attestation Patient care was provided by Advanced Practice Provider:: No The physician spent face to face time with patient:: Yes Advanced Practice Provider documentation review:: Supervising physician onsite and consulted in the evaluation and care of this patient. The physician did have a face to face encounter with the patient.
[2018-10-15 04:13] LABS: INR 0.88; PROTIME 12.7 Seconds (11.0-16.0)
[2018-10-15 04:14] LABS: PTT 31.7 Seconds (22.3-41.8)
--- NOTE | 2018-10-15 05:11 | Diag Imaging Result Doc PS360 ---
EXAM: CHEST-PORTABLE HISTORY: sepsis TECHNIQUE: Portable chest single view COMPARISON: 10/07/2016 FINDINGS: There is a right-sided PICC line. There are dense infiltrates in upper right lung and what appears to be an abscess in the mid left lung measuring 4 cm. This has a thickened wall and air centrally. There is mild pulmonary edema. No cardiomegaly. No pleural effusions. IMPRESSION: Bilateral pneumonia appears to be an abscess in the mid left lung. Electronically signed by Juan Elaine 10/15/2018 5:09 AM
[2018-10-15] MEDS ORDERED: TYLENOL PO PRN ×2 (05:15→15:18)
[2018-10-15] MEDS ORDERED: ZOFRAN IV PRN (05:15)
[2018-10-15] MEDS ORDERED: VANCOMYCIN IV PER PHARMACY MISC SCH (05:15)
[2018-10-15] MEDS: ZOSYN 3.375 GM in NS 50 ML IV SCH ×4 (05:30→22:41)
[2018-10-15] MEDS ORDERED: DUONEB (A & A) INH PRN (05:52)
[2018-10-15 06:11] LABS: BASO# 0.39 X1000 (0.0-0.2); BASO% 0.9 % (0.0-0.8); HEMATOCRIT 31.2 % (37.0-47.0); HEMOGLOBIN 10.1 g/dL (12.0-16.0); IMM GRAN# 3.52 X1000 (0.0-0.04); IMM GRAN% 7.7 % (0.0-0.5); LYMPH# 2.69 X1000 (1.2-3.4); LYMPH% 5.9 % (20.5-51.1); MCHC 32.4 g/dL (33-37); MCV 83.4 FL (81-99); MONO% 4.2 % (1.7-9.3); MPV 9.3 FL (7.4-10.4); NEUT# 37.19 X1000 (1.4-6.5); NEUT% 81.3 % (42.2-75.2); PLT 292 X1000 (130-400); RBC 3.74 XMIL (4.2-5.4); RDW 34.3 % (11.5-14.5); WBC 45.69 X1000 (4.8-10.8)
[2018-10-15] MEDS: DILAUDID IV PRN ×7 (06:30→22:41)
[2018-10-15 06:46] LABS: AGAP 11; ALB/GLOB RATIO 0.6; ALBUMIN 2.2 g/dL (3.5-5.0); ALKALINE PHOSPHATASE 1777 U/L (32-104); BUN 11 mg/dL (8-22); CHLORIDE 101 mmol/L (98-107); COSMO 266; CREATININE 0.5 mg/dL (0.5-0.9); ESTIMATED GFR > 60; GLUCOSE 76 mg/dL (70-104); GOT 67 U/L (10-30); GPT 40 U/L (10-36); MAGNESIUM 1.5 mg/dL (1.5-2.7); POTASSIUM 3.8 mmol/L (3.5-5.1); SODIUM 134 mmol/L (136-145); TCO2 22 mmol/L (25-35); TOTAL BILIRUBIN 0.45 mg/dL (0.20-1.00); TOTAL PROTEIN 5.7 g/dL (6.3-8.3)
[2018-10-15] MEDS: NS 1,000 ML IV SCH ×2 (06:53→18:28)
[2018-10-15 06:57] LABS: CALCIUM 6.6 mg/dL (8.8-10.2)
[2018-10-15 07:35] LABS: ANISOCYTOSIS 2+; BANDS 7 % (0-1); HYPOCHROM 1+; LYMPHS 5 % (21-51); MONO 1 % (1-9); SEGS 82 % (42-75)
[2018-10-15 07:36] LABS: POIKILOCYTOSIS 1+
--- NOTE | 2018-10-15 08:10 | Diag Imaging Result Doc PS360 ---
EXAM: CT ABD/PELVIS W/IV CONT ONLY INDICATION: abdominal pain, sepsis TECHNIQUE: This exam was performed using automated exposure control, adjustment of mA or kV according to patient size, and/or use of iterative reconstruction technique. COMPARISON: 08/29/2018 FINDINGS: There are numerous peripheral nodules at both lung bases consistent with metastatic disease. They have increased in size and number as compared to the previous study. For reference, one of the largest lesions was not present on the previous study on image 15 of series 4 measuring up to 21 cm in the greatest dimension. There has been a prior cholecystectomy. There are innumerable low dense lesions throughout the liver consistent with metastatic disease that in general have increased in number and size as compared to the previous study. There is small volume ascites tracking around the liver and spleen and tracking into the pelvis. The spleen, pancreas, and adrenal glands are essentially unremarkable. There is subtle multifocal decreased enhancement involving the kidneys bilaterally on the venous phase which could represent solid renal nodules, complex cyst, or pyelonephritis. They cannot clearly be identified on the previous study. The urinary bladder is unremarkable. The urinary bladder is grossly unremarkable. The reproductive tract is unremarkable as imaged. There has been a prior appendectomy. There is no evidence of focal bowel wall thickening or bowel obstruction. There is nonspecific patchy small bowel gas and fluid likely related to ileus. There are scattered lytic lesions throughout the visualized spine and involving a few ribs subsequent with metastatic disease, similar to the previous study. IMPRESSION: 1.Interval worsening of metastatic disease to the lung bases and liver. 2.Small volume free fluid in the abdomen and pelvis. 3.Fluid-filled loops of small bowel with patchy gas but only mild distention that likely represents ileus. Nothing to suggest high-grade obstruction. 4.Ill-defined foci of low density involving the kidneys bilaterally on the venous phase. Consider renal metastatic disease versus pyelonephritis. 5.Lytic bony metastases are similar to the previous study. Electronically signed by Darrick Chiang 10/15/2018 8:07 AM
--- NOTE | 2018-10-15 09:23 | Diag Imaging Result Doc PS360 ---
EXAM: CT THORAX W/CONTRAST INDICATION: PNA,Lungs Mets,Poss. Left Lung Abscess TECHNIQUE: This exam was performed using automated exposure control, adjustment of mA or kV according to patient size, and/or use of iterative reconstruction technique. COMPARISON: 08/29/2018 FINDINGS: There are very small bibasilar pleural effusions with adjacent atelectasis. There are numerous nodules and masses scattered throughout the lung parenchyma, many of which are cavitary. They have increased significantly in size and number during the interval. For reference, a cluster of ill-defined nodules in the left lower lobe seen on the previous study have coalesced to form a cavitary mass on image 52 of series 3 measuring up to 4.9 x 3.8 cm axially. There is a cavitary mass in the right upper lobe that can be seen on image 33 of series 3 measuring up to 4.5 x 2.9 cm axially (1.0 x 1.0 cm previously). There is no pneumothorax. No new mediastinal lymphadenopathy is appreciated. No pulmonary artery filling defects can be identified on this study. Limited views of the upper abdomen reveals diffuse metastatic disease throughout the liver that can also be seen on the recent CT abdomen and pelvis dated 10/14/2018. Like the previous study, there are multiple bony lytic lesions involving the thoracic spine, sternum, and a few ribs. Since the previous study, there has been further pathologic collapse of the T9 vertebra, which was beginning on the previous study. There is now vertebra plana at T9 and there is soft tissue extension of the mass around this vertebral body. There is significant compromise of the central canal due to epidural extension of the mass. However, the central canal compromise is similar to the previous study. IMPRESSION: 1.Numerous nodules and masses throughout the lung parenchyma bilaterally that is most consistent with metastatic disease. Many of these are cavitary. They have increased in size and number as compared to the previous study. 2.Lytic skeletal metastases as described with further pathologic collapse of the T9 vertebra with extension to the paraspinal soft tissues and significant compromise of the central canal. 3.Tiny bilateral pleural effusions with bibasilar atelectasis. 4.Diffuse hepatic metastatic disease. Please see separate abdominal CT report performed less than 24 hours prior. Electronically signed by Darrick Chiang 10/15/2018 9:21 AM
[2018-10-15] MEDS ORDERED: BLISTEX MEDICATED BERRY LIP BALM TOP PRN (10:08)
[2018-10-15] MEDS: MYCOSTATIN SUSP PO SCH ×4 (10:44→21:30)
[2018-10-15] MEDS: TUMS PO SCH ×3 (10:44→16:52)
--- NOTE | 2018-10-15 11:15 | GENERAL SURGERY CONSULTATION ---
DATE: 10/15/2018 HISTORY OF PRESENT ILLNESS: This is a 48-year-old female with widely metastatic breast carcinoma, who was initially evaluated for me in my office for port placement in the setting of a malfunctioning PICC line. She at that time was noted to have some cellulitis of her right hip. This has developed into abscess and was drained yesterday in my office. Over the night, she developed fevers, worsening shortness of breath, and presented to the emergency department, where she has been treated for pneumonia. She had a leukocytosis. Her dressing is in place. I reviewed a CT scan that she had that shows widely metastatic disease. MEDICAL HISTORY: Breast cancer, anxiety, schizophrenia. SURGICAL HISTORY: PICC line placement. SOCIAL HISTORY: She does smoke. No current alcohol. FAMILY HISTORY: Reviewed. REVIEW OF SYSTEMS: Ten point negative. PHYSICAL EXAMINATION: Temperature 98.3 degrees, pulse 101, blood pressure 101/74.General: She is a very ill-appearing female. HEENT: No scleral icterus. Cardiovascular: Normal rate. Pulmonary: No increased work of breathing, but she is on nasal cannula. She has a PICC line in place on the right . Abdomen: Soft. Integument: Warm, dry. Psychiatric: She is very tremulous and anxious. Neurologic: No gross deficits. Lymphatic: I do not feel any cervical adenopathy. Peripheral vascular: No upper or lower extremity edema. Musculoskeletal: Right abscess. There is no cellulitis. The induration is much improved. There is no drainage on her dressing. DIAGNOSTIC STUDIES: White count 45, hematocrit 31. Creatinine 0.5, bilirubin is normal. Alkaline phosphatase is elevated, consistent with her metastatic disease. UA is clear. I have reviewed her imaging. ASSESSMENT AND PLAN: This is a 48-year-old female with widely metastatic breast carcinoma, a very grim prognosis regarding this. She does appear to have infection. Her abscess was drained yesterday. It is possible this is the etiology, but it seems to be healing well. I agree with antibiotics. She is on treatment for pneumonia. She may also need the PICC line removed, and I would encourage this as this would be the more driving issue. I do think we have adequate source control of her abscess. We will follow along. cc: Margaux Michel MD [facility]ALTHManj[facility]
[2018-10-15] MEDS ORDERED: DECADRON IV ONE (12:45)
[2018-10-15] MEDS ORDERED: PHENERGAN PO PRN (15:18)
[2018-10-15] MEDS ORDERED: DURAGESIC 25 MICROGM/HR PATCH TD SCH (15:30)
--- NOTE | 2018-10-15 17:35 | PROGRESS NOTE ---
DATE: 10/15/2018 INTERVAL HISTORY: Ms. Shook was admitted with sepsis likely from right-sided gluteal region abscess. She was started on broad-spectrum antibiotics. I was told that both sets of blood cultures are growing gram-positive cocci. SUBJECTIVE: Patient appears to be in significant pain and teary. She wants her anxiety and pain medication. The patient's daughter, who is the surrogate decision maker, is at the bedside. Patient is complaining of back pain, chest pain, bilateral upper and lower extremity pain. OBJECTIVE: Vital Signs: Temperature of 98.8 degrees, pulse 86, respiratory rate 20, blood pressure 127/88, saturating 94% on room air. General: Cachectic. Has alopecia. Oral cavity has oral thrush. The patient is in mild to moderate distress because of pain. HEENT: Oral cavity is dry. Lungs: Air entry bilaterally equal. Inspiratory crackles bilaterally. She has a very thin chest wall because of protein calorie malnutrition. Cardiovascular: S1, S2 normal. No appreciable murmur, rub, or gallop. Tachycardic. Abdomen: Soft. There is about 2 cm hepatomegaly palpated at midclavicular line. No splenomegaly that I could appreciate. Generalized tenderness. Extremities: Mild bilateral lower extremity edema. She also has a right foot, what appears to be papules with underlying erythema and mild tenderness. Neurologic: She is alert. She is very anxious and she does not answer questions appropriately. She does have tangentiality of her thought. Skin: Right buttock examination reveals she had a recent I D done as an outpatient with pus-like discharge coming out from about 3 cm linear incision. LAB: Significant for leukocytosis, normocytic anemia, normal platelet count, hyponatremia, hypocalcemia, normal kidney function, resolution of lactic acidosis, and hypoalbuminemia. She continues to have elevated alkaline phosphatase. IMAGING: Abdomen and pelvis CT had detected worsening of metastatic disease to lung bases and liver, free fluid in abdomen and pelvis, presence of ileus, ill-defined foci of low density involving kidneys, could be renal metastatic disease versus pyelonephritis, lytic bony metastasis similar to prior studies. Chest CT was suggestive of numerous nodules and masses throughout the lung parenchyma, most consistent with metastatic disease. Many of these are cavitary and seem to have developed into abscess. Lytic skeletal metastasis with pathological collapse of T9 vertebra with extension and compromise of the central canal. Tiny bilateral pleural effusions with bilateral atelectasis. Diffuse hepatic metastatic disease. ASSESSMENT: 1. Gram-positive sepsis, likely source being right gluteal abscess, status post incision and drainage. 2. Breast cancer with diffuse metastasis involving lung, liver, bony metastasis, and possibly kidney metastasis, spinal metastasis with compression fracture and spinal cord impingement. 3. Cavitary lung lesions. Likely metastasis from breast cancer as well as likely infected emboli which has developed into abscesses. 4. History of schizophrenia and severe anxiety. 5. Oral thrush. 6. History of polysubstance abuse and opioid dependence. PLAN: Continue intravenous vancomycin and intravenous Zosyn. She should get repeat blood cultures done 48 hours later. Her right buttock abscess has been drained by Surgical Team outpatient. I will follow up with echocardiogram to rule out infective endocarditis as well. Continue pain management with intravenous hydromorphone, p.o. oxycodone, acetaminophen, and fentanyl patch. Considering her diffuse metastatic bony disease, she has an extremely poor prognosis. I discussed with the patient's daughter, who is the surrogate decision maker, at bedside about comfort measures only and patient's daughter is very much willing to pursue that. She just wants to discuss this decision with the patient's sister and she is going to do that today. Based on my conversation with the daughter, it looks like they will make the patient comfort measures only in the next 24 hours or so. Meanwhile, I will continue intravenous antibiotic, intravenous fluids, and pain management. I will also continue her home medications for anxiety and schizophrenia. I will inform the nursing team about getting another IV line and see if the PICC line needs to be removed since she has bacteremia. Depending on the family's decision tomorrow, we may end up keeping the PICC line for pain medication if she has poor IV access. Plan of care discussed with the patient's daughter who is the surrogate decision maker. All of their questions have been answered. I will also consult palliative care. cc: MD ROSITA Lockett
[2018-10-15] MEDS: XANAX PO PRN (19:10)
--- NOTE | 2018-10-15 19:39 | CONSULTATION ---
DATE OF CONSULTATION: 10/15/2018 REQUESTING PROVIDER: EMORY Miranda REASON FOR CONSULTATION: Lung metastases, pneumonia, possible left lung abscess. HISTORY OF PRESENT ILLNESS: This is a 48-year-old female with a medical history of left breast invasive mammary carcinoma with metastases, intractable pain, transaminitis, iron deficiency anemia, Bright disease, schizophrenia, anxiety, depression, ongoing right buttock abscess, alcohol abuse, polysubstance abuse, ovarian cyst, skin cancer. She presented to the ER last night with severe generalized abdominal pain. Initial workup in the ER revealed bilateral pneumonia with a possible abscess in the mid left lung, significant leukocytosis and transaminitis. She has been admitted to the medical floor for further evaluation and management. At the time of my examination, patient is sitting on the bedside commode. She is moaning from severe pain. Nurse at the bedside is preparing to give her Dilaudid. The patient's daughter arrives during my assessment. She reports patient was crying and screaming for severe abdominal pain last night. She also had a fever. The patient reports that she has abdominal pain at times but never has been as severe as last night. She reports some diarrhea for 2 weeks. She also has worsening generalized weakness and shortness of breath. She reports no cough, wheezing, chest pain or palpitation. PAST MEDICAL HISTORY: 1. Left breast invasive mammary carcinoma with metastases to bones, lungs and liver, status post 10 days of radiation and ongoing chemotherapy. 2. Intractable pain of the back and ribs on oxycodone and fentanyl patch at home. 3. Transaminitis likely secondary to liver metastases. 4. Iron deficiency anemia. 5. Bright disease. 6. Schizophrenia. 7. Anxiety. 8. Depression. 9. Ongoing right buttock abscess status post drainage yesterday in Dr. Michel's office. 10. History of alcohol abuse. 11. History of polysubstance abuse. 12. Ovarian cyst status post cyst removal. 13. Skin cancer status post excision of several cancerous moles. 14. Left breast cold needle biopsy by Dr. Dudley on 09/01/2018. 15. Cholecystectomy. 16. Tonsillectomy. SOCIAL HISTORY: Patient lives at home with her daughter and 2 grandsons. She does have some home health care. She used to smoke cigarettes, about 1 pack per day, and quit smoking 2 months ago. She started smoking at 25 years old. She has a history of alcohol abuse for 28 years and polysubstance abuse including marijuana, methamphetamine and cocaine. FAMILY HISTORY: Positive for breast cancer and skin cancer. ALLERGIES: No known drug allergies. REVIEW OF SYSTEMS: A 10-point review of systems was conducted, and the pertinent is listed within the HPI, otherwise not contributory. PHYSICAL EXAMINATION: Vital Signs: Temperature 98.3, blood pressure 101/74, pulse 101, respiratory rate 14, oxygen saturation 97% on nasal cannula at 2. General: The patient appears chronically ill, weak, depressive, and malnourished. She is sitting on the bedside commode now. She is moaning with severe general pain. She is easy to become anxious. When I told hold that she may have pneumonia, she becomes tearful and states "I do not want to ". HEENT: Atraumatic. Trachea midline. Mucosa pink and moist. Respiratory: Even and unlabored. Symmetrical excursion. Auscultation reveals diminished breathing sounds with early inspiratory basilar crackles bilaterally. Cardiovascular: Regular rate and rhythm. Gastrointestinal: Bowel sounds present in all 4 quadrants. Soft and nondistended. General tenderness on palpation. Extremities: trace pedal edema. No cyanosis. No clubbing. Dorsalis pedis 1+ bilaterally. Neurologic: Alert and oriented x3, weakness, anxious, depressive, speech fluent, followed commands. LABORATORY DATA: White blood cell 45.69, hemoglobin 10.1, hematocrit 31.2, platelets 292,000. Sodium 134, potassium 3.8, chloride 101, carbon dioxide 22, BUN 11, creatinine 0.5, glucose 76, calcium 6.6, AST 67, ALT 40, alkaline phosphatase 177. IMAGING DATA: Chest CT with contrast revealed numerous nodules and masses throughout the lung parenchyma bilaterally that is most consistent with metastatic disease. Many of these are cavitary. They have increased in size and number as compared to the previous study on 08/29/2018. Lytic skeletal metastases with further pathologic collapse of the T9 vertebra with extension to the paraspinal soft tissue and significant compromise of the central canal, tiny bilateral pleural effusion with bibasilar atelectasis, diffuse hepatic metastatic disease. ASSESSMENT: This is a 48-year-old female with a medical history of left breast invasive mammary carcinoma with metastases, intractable pain of the back and ribs, transaminitis, iron deficiency anemia, Bright's disease, schizophrenia, anxiety, depression, ongoing right buttock abscess, alcohol abuse, polysubstance abuse, ovarian cyst and skin cancer. She has been admitted to the medical floor since yesterday with pneumonia and possible left lung abscess. 1. Acute hypoxemic respiratory failure. 2. Probable pneumonia. 3. Significant leukocytosis. 4. Left breast invasive mammary carcinoma with metastases to bones, lung, liver and likely kidney. PLAN: 1. Continue supplemental oxygen. 2. Continue antibiotics and bronchodilators. 3. Follow up with CBC, CMP, and blood cultures. 4. Check ABG and chest x-ray if indicated. 5. Dr. Yi is on board. 6. Patient is on full code 7. Continue GI and DVT prophylaxis. 8. Further recommendations pending hospital course. Thank you for the courtesy of this consult. Dictated by EMORY Benítez for Guillermina Dyson MD cc: EMORY Benítez MD [facility]
[2018-10-15] MEDS: LIDODERM TOP SCH (21:34)
[2018-10-15] MEDS: LEXAPRO PO SCH (21:34)
[2018-10-15] MEDS: SEROQUEL PO SCH (21:35)
[2018-10-15] MEDS: DECADRON IV SCH (21:35)
[2018-10-15] MEDS ORDERED: VANCOMYCIN 1,100 MG in NS 250 ML IV SCH (23:00)
[2018-10-16] MEDS: DILAUDID IV PRN ×4 (00:58→21:42)
--- NOTE | 2018-10-16 04:05 | HISTORY AND PHYSICAL ---
PRIMARY CARE PROVIDER: The patient does not have a primary care provider though recently she has been followed by Dr. Yi for metastatic breast cancer. DATE AND TIME: 10/15/2018 at 0330. CHIEF COMPLAINT: Abdominal pain. HISTORY OF PRESENT ILLNESS: Ms. Shook is an unfortunate 48-year-old female who has a past medical history most notable for schizophrenia, depression, anxiety, and previous history of alcohol and drug abuse. Though most recently in August of 2018 she was diagnosed with metastatic breast cancer. She has been undergoing radiation and chemotherapy followed by Dr. Yi. She complains of abdominal pain. The patient states that the pain is constant and that she has been taking medications of Fentanyl and Oxy IR home though this is not controlling her pain at this time. The patient also reports that she has recently been treated for a right buttock abscess, she has reportedly had incision and drainage performed on this by Dr. Michel just recently and was placed on antibiotic of Bactrim. She states at home that she has now also been running low-grade fevers. She did have a low-grade fever upon arrival to the ER tonight of 100.5. The patient does have diffuse pain. She does have left breast pain at times as well as back pain and the reported abdominal pain though at this time her main complaint is her abdominal pain. She denies any headache or dizziness. She denies any shortness of breath, chest pain or cough. She also denies any nausea, vomiting or diarrhea. She denies any dysuria or urinary frequency. She denies any pain, numbness, tingling, or swelling in the extremities. Upon arrival to the ER the patient did have initial vital signs of temperature 100.5 degrees, heart rate 103, respirations 20, blood pressure is 133/97, oxygen saturation was 98% on room air. Laboratory results did reveal marked leukocytosis with a white blood cell count of 42,020. It is unknown at this time if the patient may have recently received Neupogen injection or a similar type medicine. Chemistry results did reveal some transaminitis, though actually her numbers look better than recent labs we do have in the computer. The patient does have known metastases to the liver. Her lactate was elevated as well at 2.5. Urinalysis did not show any signs of infection. CT result revealed pulmonary metastasis increased in size and number. There were numerous low- density lesions throughout the liver with metastatic disease that has increased since the patient's prior study. There was a small amount of nonspecific free fluid in the upper abdomen, pericolic gutters and pelvis. There was no bowel obstruction identified. There were ill-defined areas of decreased density seen in the kidneys bilaterally on the venous phase, which may represent renal metastatic lesions versus pyelonephritis. Chest x-ray did show bilateral pneumonia with what appears to be an abscess in the mid left lung. Blood cultures have been placed as well as a sputum culture. Also upon evaluation of the patient's right buttock abscess, the patient's dressing was removed and immediately there was blood-tinged purulent drainage noted. The patient has approximately a golf ball-sized abscess that was tunneled. This may be more extensive given that it is not completely visible. There is a small opening from where Dr. Michel has previously did an incision and drainage. When you press the patient's abscess it would just ooze out a small to moderate amount of purulent drainage. The area was erythemic and warm to the touch. So we have obtained a wound culture, we have placed her on antibiotics of vancomycin and Zosyn. We will adequately control her pain. She has received fluid resuscitation with normal saline at 2 L and we will continue with normal saline at 85 mL per hour. The patient has been placed in patient for admission. REVIEW OF SYSTEMS: A 14-point review of systems was conducted with the patient and all were negative except for pertinent positives mentioned above in the HPI. PAST MEDICAL HISTORY: 1. Schizophrenia. 2. Anxiety. 3. Depression. 4. Previous history of alcohol abuse. 5. Previous history of polysubstance abuse. The patient previously stated on a recent H P in August that she used to smoke marijuana and snort methamphetamines and cocaine. She denied any use within the last approximately 7 months. She denies any current or previous history of IV drug use. 6. Recent diagnosis of breast cancer with metastases. Upon her most recent discharge her CT did show that she had bony metastases with severe spinal stenosis at T8 and in the lumbar spine, as well as lung metastases and liver metastases. Since that time she has had a PICC line placed in her right upper arm, she has been receiving chemotherapy and radiation followed by Dr. Yi. PAST SURGICAL HISTORY: 1. Cholecystectomy. 2. Ovarian cystectomy. 3. Surgery for endometriosis. 4. Tonsillectomy. 5. Mole removal from several areas of her body. 6. Recent left breast biopsy performed by Dr. Dudley on 09/01/2018 for which the pathology revealed invasive mammary carcinoma with micropapillary features and grade 3, only positive for estrogen receptor. SOCIAL HISTORY: The patient did previously live with her mother and father though she states at this time she is living with her daughter. She is a former smoker who quit smoking in July or August of 2018. She previously did smoke 1/3 of a pack per day since age 15. She does have previous history of alcohol abuse. She states that she has been drinking alcohol since age 15, though she did have a period where she drink 1 pint of whiskey per day for a period of years, though states she quit drinking alcohol 4 years ago. There was a previous history of polysubstance abuse. She reports smoking marijuana, snorting methamphetamines and cocaine in the past. She denied any history of illicit drug use in the past 6 months. She denies any previous history of IV drug use. FAMILY HISTORY: Positive for her mother having a history of heart disease and psychiatric problems. There is also a family history of cancer on her maternal side with her grandmother passing away secondary to what sounds like possible gynecological cancer. Her aunt also had breast cancer as well. ALLERGIES: The patient reports no known allergies. HOME MEDICATIONS: 1. Tylenol 650 mg p.o. q.6 hours p.r.n. 2. Decadron 4 mg p.o. daily. 3. Lexapro 20 mg p.o. at bedtime. 4. Fentanyl patch 25 mcg/hour 1 transdermally q.72 hours. 5. Lidocaine 5% patch 1 each topical at bedtime. 6. Prilosec 40 mg p.o. daily. 7. Oxycodone IR 15 mg p.o. q.8 hours p.r.n. 8. Phenergan 12.5 mg p.o. q.6 hours p.r.n. 9. Seroquel 12.5 mg p.o. b.i.d. DIAGNOSTIC DATA/LABORATORY RESULTS: 1. White blood cell count is 42,020, hemoglobin 11.5, hematocrit 35.4, platelet count is 341,000. PT 12.7, INR is 0.88, PTT is 31.7. Sodium 136, potassium 3.7, chloride 97, serum bicarbonate is 25, BUN 14, creatinine 0.6, with a GFR greater than 60, glucose 86, calcium 7.5, total bilirubin 0.55, AST 79, ALT 45, alkaline phosphatase is 2142, amylase 64, lipase 84, plasma lactate is 2.5. Urinalysis obtained via clean catch was negative for protein, glucose, ketones, blood, nitrites, leukocytes, white blood cells, or bacteria. 2. Chest x-ray did show bilateral pneumonia and what appears to be a mid left lung abscess. 3. A CT of the abdomen and pelvis did show pulmonary metastasis, which has increased in size and number. There are numerous low-density lesions throughout the liver with metastatic disease that has since the patient's prior study. Nonspecific small free fluid in the upper abdomen, pericolic gutters and pelvis. 4. No bowel obstruction identified. 5. Ill-defined areas of decreased density seen in the kidneys bilaterally on the venous phase, which may represent renal metastatic lesions versus pyelonephritis. PHYSICAL EXAMINATION: VITAL SIGNS: Heart rate 103, respirations 19, blood pressure is 135/98 with a MAP of 114, oxygen saturation is 97% on nasal cannula at 2 L. She was 90%-91% on room air. GENERAL: Ms. Shook is a pleasant 48-year-old female. She was resting in the ER stretcher. She was in no acute distress. She was awake, alert, and oriented to person, place, and time. HEENT: Head is atraumatic, normocephalic. Pupils are equal, round, and reactive to light with 3 mm bilaterally and brisk. Oral mucosa is slightly dry and the patient does have several patches of what appears to be oral candidiasis. She also has a left tongue sore/ulcer. NECK: Supple. Trachea midline. CARDIOVASCULAR: The patient has S1 and S2 present. No murmurs, gallops, or rubs appreciated with a regular rate and rhythm. PULMONARY: The patient has symmetrical chest expansion bilaterally. She did have very fine crackles throughout bilateral lung [place]. ABDOMEN: Soft, though does appear to be distended. Bowel sounds were present in all 4 quadrants and were normoactive. The patient does have diffuse tenderness though it is worse in her right upper quadrant area. EXTREMITIES: No cyanosis, clubbing, or edema noted. Pulse, motor, and sensory is intact in all extremities. Radial pulses and pedal pulses are 2+ bilaterally. INTEGUMENTARY: The patient's skin is pink, warm, and dry. She also does have an abscess noted to her right buttock. It does have a centralized opening from which she recently in had incision and drainage performed by Dr. Michel, though with just light pressure applied to the abscess it did produce a small to moderate amount of blood-tinged purulent drainage. This area is erythremic and warm to the touch. The wound does tunnel and the inside from what I can visualize somewhat does appear to be about the size of a golf ball. Wound culture was obtained. NEUROLOGICAL: The patient is alert and oriented to person, place, and time. She is able to move all extremities. At this time she does not appear to have any focal neurological deficits noted. ASSESSMENT AND PLAN: 1. Sepsis. This could be either secondary to her pneumonia, possible lung abscess, and right buttock abscess. She has been placed on antibiotics of vancomycin and Zosyn. Blood culture, sputum culture, and wound culture have been ordered. She has been provided with adequate fluid resuscitation with normal saline at 2 L, and been placed on maintenance fluids of normal saline at 85 mL per hour. She does have marked leukocytosis noted with a white blood cell count of 42,020, though we are unsure if the patient had recently received medications such as Neupogen. She has been running low-grade fevers. We will continue to follow closely. 2. Bilateral pneumonia. We will continue with treatment as mentioned above. 3. Possible lung abscess. We will also continue treatment as mentioned above for #1, though we have placed orders for CT of the chest with contrast, though we are having to wait until later in the morning due to she has already received contrast with her abdomen and pelvis CT. We will await results and continue to follow. 4. Right buttock abscess. This has been recently treated by Dr. Michel. She did have an incision and drainage performed was on antibiotic of Bactrim. We have obtained a wound culture, we have redressed the wound at this time, we will place consultations for wound care nurse and Dr. Michel. We will await his evaluation and further recommendations. We have continued with antibiotics as mentioned above. 5. Breast cancer with metastases. The patient already had known metastases to the bone, lung, and liver, though it looks as though on the CT today it was noted that her pulmonary metastases have increased, as well as her liver metastases, and now she does appear to have possible metastases to bilateral kidneys. The patient was receiving chemotherapy and radiation followed by Dr. Yi. She did receive her last chemotherapy treatment last week. We have placed a consultation with Dr. Yi and we will await their evaluation and further recommendations for management. The patient has been placed on the medical floor with telemetry. She will have vital signs q.4 hours. We will do strict intake and output, and incentive spirometry. She will be nothing per oral until we are able to obtain her chest CT and she is evaluated by Dr. Michel. We will repeat a CBC and CMP later on in the morning. We will try to control the patient's pain adequately. Upon arrival to the ER the patient was in quite a bit of pain. We are now going to provide Dilaudid 2 mg IV q.1 hour. We will closely monitor her cardiovascular and respiratory status. She has been placed on continuous cardiac telemetry and pulse oximetry. Further orders and recommendations pending hospital course, diagnostic studies, and physician evaluation. Dictated by EMORY Miranda for Pernell Brooks MD cc: Pernell Brooks MD [facility]TD[facility]
[2018-10-16] MEDS: ZOSYN 3.375 GM in NS 50 ML IV SCH ×2 (04:59→12:30)
[2018-10-16] MEDS: DECADRON IV SCH ×2 (04:59→12:31)
[2018-10-16] MEDS: PRILOSEC PO SCH ×2 (05:51→07:55)
[2018-10-16] MEDS: XANAX PO PRN ×2 (05:51→09:15)
[2018-10-16 07:07] LABS: BASO# 0.15 X1000 (0.0-0.2); BASO% 0.5 % (0.0-0.8); EOS# 0.02 X1000 (0.0-0.7); EOS% 0.1 % (0.0-10.0); HEMATOCRIT 31.4 % (37.0-47.0); HEMOGLOBIN 9.9 g/dL (12.0-16.0); IMM GRAN# 1.71 X1000 (0.0-0.04); IMM GRAN% 5.5 % (0.0-0.5); LYMPH% 4.9 % (20.5-51.1); MCH 26.7 PG (27-31); MCHC 31.5 g/dL (33-37); MCV 84.6 FL (81-99); MONO# 0.31 X1000 (0.11-0.59); MPV 9.6 FL (7.4-10.4); NEUT# 27.15 X1000 (1.4-6.5); PLT 267 X1000 (130-400); RBC 3.71 XMIL (4.2-5.4); WBC 30.84 X1000 (4.8-10.8)
[2018-10-16 07:42] LABS: AGAP 12; ALB/GLOB RATIO 0.7; ALBUMIN 2.5 g/dL (3.5-5.0); BUN 13 mg/dL (8-22); CALCIUM 8.1 mg/dL (8.8-10.2); CHLORIDE 101 mmol/L (98-107); COSMO 278; CREATININE 0.5 mg/dL (0.5-0.9); ESTIMATED GFR > 60; GLUCOSE 175 mg/dL (70-104); GOT 48 U/L (10-30); GPT 38 U/L (10-36); POTASSIUM 4.7 mmol/L (3.5-5.1); SODIUM 137 mmol/L (136-145); TCO2 24 mmol/L (25-35); TOTAL BILIRUBIN 0.34 mg/dL (0.20-1.00); TOTAL PROTEIN 6.3 g/dL (6.3-8.3)
[2018-10-16] MEDS: OXY IR PO PRN ×2 (07:55→12:36)
[2018-10-16 07:57] LABS: ALKALINE PHOSPHATASE 1629 U/L (32-104)
[2018-10-16] MEDS ORDERED: DECADRON PO SCH (09:00)
[2018-10-16] MEDS: SEROQUEL PO SCH (09:15)
[2018-10-16] MEDS: TUMS PO SCH ×3 (09:16→16:47)
[2018-10-16] MEDS: MYCOSTATIN SUSP PO SCH ×3 (09:16→16:48)
--- NOTE | 2018-10-16 12:56 | ECHO REPORT ---
ORDER DATE: 10/15/2018 STUDY: Limited echocardiogram. INTERPRETING PHYSICIAN: Dr. Pereira CLINICAL INDICATIONS: Posterior wall endocarditis. M-MODE MEASUREMENTS: Left ventricle end diastole: 4.8 cm. Left ventricle end systole: 2.7 cm. Posterior wall: 0.9 cm. Interventricular septum: 0.9 cm. Left atrium: 2.5 cm. Aortic root: 3.2 cm. SUMMARY OF 2-DIMENSIONAL IMAGIN. Left ventricular function is normal, ejection fraction estimated at 65% to 70%. 2. The right ventricle appears to be normal. 3. The atria appear to be normal. 4. There is no pericardial effusion. 5. The aortic valve has 3 cusps. They appear to be free of any abnormality. 6. The mitral valve opens normally. There is no evidence of any gross vegetation involving the mitral valve. There is very mild degree of mitral regurgitation. 7. The tricuspid valve is visualized less optimally than the aortic and mitral valve but it seems to be grossly free of any large vegetation. 8. The pulmonic valve was also visualized and it appears to be grossly free of any large vegetation. If there is a strong index of suspicion for endocarditis meaning signs of peripheral embolization and positive blood culture for MRSA or similar endocarditis-like organism, then consider performing transesophageal echocardiogram for definitive diagnosis. cc: MD Derik Eugene MD
[2018-10-16 16:19] LABS: INR 0.87; PROTIME 12.6 Seconds (11.0-16.0)
[2018-10-16] MEDS: ATIVAN IV PRN ×2 (16:31→23:11)
[2018-10-16] MEDS ORDERED: ROXANOL CONC. LIQUID PO PRN (16:40)
--- NOTE | 2018-10-16 17:30 | PROGRESS NOTE ---
DATE: 10/16/2018 SUBJECTIVE: Today Ms. Shook continues to complain of pains almost everywhere, especially in her bones. There are a lot of family members who were at the bedside at the time of the encounter. OBJECTIVE: Vital signs: Blood pressure is 138/89, pulse is 89, respiration is 18, temperature 98.3 degrees. General: Ms. Shook is a 48-year-old female. She is in bed, not in any cardiopulmonary distress. HEENT: Mucosa is pink and moist. Anicteric. Acyanotic. Neck: Supple. Chest: Air entry is bilaterally reduced. There are some crackles posteriorly. Cardiovascular: Regular rate and rhythm. Abdomen: Soft distended, especially in the lower abdomen. The right gluteal area is covered with sterile dressing. Extremities: There is 2+ pedal edema. MUSEUM DOCENT: Patient is awake, alert, and oriented. LABORATORY DATA: Has been reviewed. WBC is down to 30.84, hemoglobin is 9.9, platelet count of 267,000. Chemistry is also reviewed. So far blood culture has shown 2/2 MRSA. The wound is also positive for MRSA. ASSESSMENT: 1. Sepsis with methicillin-resistant Staphylococcus aureus bacteremia, likely coming from the gluteal abscess which has been drained by Surgery. The abscess itself is also growing MRSA. The patient is currently on both vancomycin and Zosyn. I have discontinued the Zosyn and consulted ID. We are going to continue with the vancomycin for now. 2. Widespread metastatic breast cancer. 3. History of schizophrenia and severe anxiety disorder. 4. Polysubstance abuse and opiate dependence. 5. Transaminitis, likely due to metastatic disease in the liver. 6. Mildly distended abdomen with ileus-looking imaging studies. We will continue further recommendation from Surgery. 7. Lactic acidosis secondary to sepsis. Improved with adequate fluid resuscitation. PLAN: So in general, I think Ms. Shook is getting stabilized. She is still remarkably sick. I think her PICC line will need to be removed and get a peripheral line. We are going to continue with the vancomycin and I have consulted Infectious Disease. cc: Kervin Armstrong MD
--- NOTE | 2018-10-16 19:32 | HEMO/ONC CONSULTATION ---
DATE: 10/16/2018 ADMITTING PHYSICIAN: Dr. Brooks. REQUESTING PHYSICIAN: Dr. Brooks. We appreciate this consult. CHIEF COMPLAINT: Metastatic breast cancer. HISTORY OF PRESENT ILLNESS: Ms. Nimco Shook is a very pleasant 48-year-old female, well known to Dr. Yi, with a history of metastatic breast cancer to the lung and liver. She was recently diagnosed and has been placed on Abraxane and Avastin. The patient also had a lesion to T9 and underwent palliative radiation therapy with Dr. Pearson. The patient is followed closely in clinic. The patient also has a history of schizophrenia, depression, anxiety and alcohol and drug abuse. The patient reports that she has been experiencing constant pain. She is currently on fentanyl and OxyContin IR. She reports that her pain has not been well controlled. The patient presented to [facility] Emergency Department with complaints of fever, temperature was 100.5 degrees. Upon presentation, the patient was noted to have marked leukocytosis with a white blood cell count of 42,202. UA was obtained which was negative for urinary tract infection at that time. CT of the chest revealed pulmonary metastasis as well as low density lesions throughout the liver increasing in size since last admission. Chest x-ray was obtained as well which revealed bilateral pneumonia and a left mid lung abscess. Blood cultures were obtained as well. The patient was placed on antibiotics and admitted secondary to pneumonia and possible sepsis. We are consulted as the patient is well known to us. PAST MEDICAL HISTORY: As in HPI. PAST SURGICAL HISTORY: 1. Cholecystectomy. 2. Tonsillectomy. 3. Multiple mole removals. 4. Left breast biopsy. SOCIAL HISTORY: The patient smokes approximately 1/3 pack cigarettes daily since the age of 15. She has a history of alcohol and drug abuse. FAMILY HISTORY: Significant for cancer in her grandmother of a gynecological origin. Additionally, the patient's aunt had breast cancer. MEDICATIONS ON ADMISSION: 1. Tylenol. 2. Decadron. 3. Lexapro. 4. Fentanyl patch. 5. Lidocaine. 6. Prilosec. 7. Oxycodone. 8. Phenergan. 9. Seroquel. ALLERGIES: Patient has no known drug allergies. REVIEW OF SYSTEMS: A 14-point review of systems was obtained and is negative except for as mentioned in HPI. PHYSICAL EXAMINATION: General: Ms. Shook is a 48-year-old female lying supine in bed in no immediate distress. She is quite ill appearing. HEENT: Normocephalic, atraumatic. Mucous membranes pale and somewhat dry. Sclerae is anicteric. Extraocular movements intact. Neck: Supple. Lungs: With coarse breath sounds throughout. Cardiovascular: S1, S2 heard. Without murmur, rub or gallop. Abdomen: Nondistended, nontender. Bowel sounds positive in all quadrants. No rebound or guarding noted. Extremities: Without clubbing, cyanosis or edema. Dermatologic: No rashes, bruises or lesions. Neurologic: The patient is awake. Alert and oriented x 3. She has no focal deficits. LABORATORY DATA: Hemoglobin 10.1, hematocrit 31.2, white blood cell count 45.69, platelets 292,000. Sodium 134, potassium 3.8, chloride 101, CO2 is 22, BUN 11, creatinine 0.5, glucose 76. Calcium 6.6, magnesium 1.5, bilirubin 0.45, alkaline phosphatase 1777, AST 67, ALT is 40. Right buttock wound culture. Is positive for gram positive cocci. IMAGING STUDIES: CT of the chest reveals numerous masses and nodules throughout bilateral lungs increasing in size since last CT as well as lytic skeletal metastasis with pathologic collapse of T9 and compromise of central canal. Bilateral pleural effusions and basilar atelectasis is appreciated. The patient has diffuse hepatic metastasis. ASSESSMENT AND PLAN: 1. Metastatic breast cancer to lung and liver, on Abraxane and Avastin. If blood cultures are negative, we will proceed with treatment with Abraxane only. We will continue to follow. 2. Diffuse bone involvement. The patient is being treated with Xgeva. 3. Pathologic collapse of T9 with compromise of the central canal. We will place the patient on IV Decadron at this time. Will continue to monitor closely. 4. Right buttock abscess. Surgery has been consulted. We will continue to monitor. 5. Pneumonia with possible sepsis. Patient is currently on antibiotics. Blood cultures are currently pending. We will continue to follow. 6. We will follow along with you and make further recommendations pending outcomes. The above reflects the history, exam, assessment and plan of Dr. Yi. Dictated by EMORY Richards for Qamar Yi MD cc: EMORY Richards MD [facility]
--- NOTE | 2018-10-16 19:46 | GENERAL SURGERY PROGRESS NOTE ---
DATE: 10/16/2018 SUBJECTIVE: She is very agitated, tremulous, confused, tearful. She has had a hard time with her PICC line which has stopped flushing. It has been withdrawn and is now functioning normally. They were unable to obtain a peripheral IV. She has had no fevers, no tachycardia. OBJECTIVE: Vital Signs: Blood pressure is 130/89, oxygen 94%. General: She is alert. Extremities: Her right hip wound has dressing. There is no induration. There is no cellulitis. She has a follicular type lesion on the right foot, but no fluctuance. There is some mild focal erythema. LABS: I reviewed her labs. White count is 30, hematocrit is 31, and platelets are 267. Creatinine is 0.5. Calcium is better at 8.1. Renal function is normal. Potassium is 4.7, sodium is 137. All of this is improving from admission. She had gram-positive cocci and Staphylococcus aureus in her blood, also cultured from the wound of the right hip. ASSESSMENT AND PLAN: This 48-year-old female had a right hip abscess. It was incised and drained in my office the day before yesterday. She has been admitted now with bacteremia and electrolyte abnormalities in the setting of systemic chemotherapy for metastatic breast carcinoma. Very ill. The family and patient are entertaining thoughts of hospice. In the meantime, we will obtain a left arm peripherally inserted central catheter line tomorrow and remove her current peripherally inserted central catheter is it has become quite positional. In the meantime, she is on antibiotics, intravenous fluids, pain medication. We will continue to follow her along. At this point, really this is palliative therapy that we are providing for this unfortunate lady. I have had a long discussion with all of her family at the bedside. They understand and are in agreement. cc: Margaux Michel MD
--- NOTE | 2018-10-16 20:01 | PROGRESS NOTE ---
DATE: 10/16/2018 ADDENDUM: This is an addendum to the progress note for Ms. Nimco Shook. I was called earlier today by Infectious Disease (Dr. Glaser). He had gone in and spoken with the family, and at some point the family had decided to make Ms. Shook DNR level 1, and to transition her care into comfort care measures only. He also did notify me that the family do not want labs, they want no new IVs, and that in terms of antibiotics he will only do oral Septra. I came this evening around 7:30. I spoke with the family, specifically the daughter who has been with her all the time, and she did confirm that it is the family decision to make Ms. Shook DNR level 1 and also to make her comfort care measures, which will include that they do not want any IV antibiotics. They do not want any IV hydration. They do not want any IV nutrition. She also made it clear that there should be order for resuscitation if the heart should stop. Ms. Shook's family also wants us to consult Hospice to come and evaluate her this evening. I have put in the order for hospice, and I have also discontinued the other management medication-villalobos that she was on, early on, after my discussion with the family this evening. cc: Kervin Armstrong MD MTDD
--- NOTE | 2018-10-16 20:11 | INFECTIOUS DISEASE CONSULT REP ---
DATE: 10/16/2018 CONCLUSION: I was asked see the patient regarding methicillin-resistant Staphylococcus aureus infection. The patient has a bacteremia. It could have originated from her PICC or from an abscess on the right buttock. She does have a small area on her distal leg, but I doubt that is the source of the infection. I sat down with the family, and because of the patient's very severe condition mainly of widely metastatic breast cancer, they have decided that they want to do comfort measures only. They did want to treat the infection with an antibiotic so I have told them I could order an antibiotic by mouth, namely Septra elixir, which I have. We have talked about resuscitation, and the family has decided on do not resuscitate. They already have seen Nani Mederos about palliative care, and they want to do the palliative care with measures to keep the patient comfortable, and they do not want to start a peripheral IV after the PICC is out, and they do not want a new PICC or a Port-A-Cath. The patient has metastatic breast cancer. In addition, she has schizophrenia, depression, anxiety, and a history of alcohol and drug abuse. ALLERGIES: She has no known drug allergies. LABORATORY DATA: Her laboratory studies show white count of 30,840, hemoglobin 9.9, and platelet count of 267,000. The patient's creatinine is 0.5. GFR is greater than 60. The alkaline phosphatase is 1629. The patient's blood is growing methicillin-resistant Staphylococcus aureus. Also, the abscess from the patient's buttock is growing a gram-positive coccus which most likely will be methicillin-resistant Staphylococcus aureus also. HOME MEDICATIONS: Include Tylenol, Decadron, Lexapro, fentanyl, lidocaine patch, Prilosec oxycodone, Phenergan, and Seroquel. PHYSICAL EXAMINATION: Vital Signs: Temperature is 98.3 degrees, pulse 89, respirations 18, blood pressure 138/89. The patient weighs 90 pounds. General: This is a chronically ill, delerious, and malnourished, middle-aged female. She weighs only 90 pounds. Head/eyes/ears/nose/throat: She is somewhat delirious. There was no drainage from the nose or ears. I was not able to get a good look at her mouth. Neck: There was no pain with moving her head. Lungs: There were bilateral rhonchi. Cardiovascular: Heart rate is regular with occasional premature beat. Abdomen: Soft and nontender. Extremities: The right arm has a PICC. The site is not erythematous or purulent. Neurologic: The patient is in a delirium. She did not respond to verbal stimuli. Integument: On the right buttock, there is a small incision where an abscess was present and on the distal part of the leg, there is a small pustular area. Thank you for the consult. cc: Wilber Glaser MD [facility]
[2018-10-16] MEDS ORDERED: SEPTRA LIQUID PO SCH ×2 (21:00)
[2018-10-16] MEDS: LEXAPRO PO SCH (23:10)
[2018-10-16] MEDS: LIDODERM TOP SCH (23:11)
[2018-10-16] MEDS: SEPTRA LIQUID PO SCH (23:30)
[2018-10-17] MEDS: DILAUDID IV PRN ×9 (03:43→21:29)
[2018-10-17] MEDS: ATIVAN IV PRN ×6 (03:44→21:29)
[2018-10-17] MEDS: SEPTRA LIQUID PO SCH ×2 (09:47→21:29)
[2018-10-17] MEDS ORDERED: DILAUDID IV ONE (11:45)
[2018-10-17] MEDS ORDERED: ATROPINE 1 % OPHTH SOLN SL PRN (11:47)
[2018-10-17] MEDS ORDERED: TRANSDERM-SCOP TD SCH (12:00)
--- NOTE | 2018-10-17 21:20 | PROGRESS NOTE ---
DATE: 10/17/2018 SUBJECTIVE: The patient is uncomfortable. OBJECTIVE: Vital Signs: Temperature 98 degrees, blood pressure 77/51, heart rate 126, respirations 14, O2 saturation 77% on 2 L nasal cannula. General: This is a chronically ill- appearing female lying in bed in mild distress. HEENT: Head normocephalic, atraumatic. Heart: S1, S2 normal. Tachycardic. Lungs: Equal air entry bilaterally. No crackles. No rales. Abdomen: Positive bowel sounds. Soft, nontender, nondistended. Extremities: No edema. No cyanosis. ASSESSMENT: 1. Sepsis secondary to methicillin-resistant Staphylococcus aureus bacteremia. 2. Metastatic breast cancer. 3. Polysubstance abuse. 4. Ileus. 5. Lactic acidosis. PLAN: We will increase the patient's Dilaudid to 4 mg every hour as well as Ativan 1 mg every hour. We will also add atropine drops p.r.n. and a scopolamine patch. cc: Luzma Casey MD
[2018-10-17] MEDS: LEXAPRO PO SCH (21:28)
[2018-10-17] MEDS: LIDODERM TOP SCH (21:29)
[2018-10-18] MEDS: SEPTRA LIQUID PO SCH (10:15)
[2018-10-18] MEDS: DILAUDID IV PRN ×3 (10:15→14:43)
[2018-10-18] MEDS: ATIVAN IV PRN ×3 (10:15→14:43)
[2018-10-18 14:40] VITALS: BP 48/24
[2018-10-18] MEDS ORDERED: DURAGESIC 25 MICROGM/HR PATCH TD SCH (17:00)
--- NOTE | 2018-11-03 11:56 | DISCHARGE SUMMARY ---
ADMISSION DATE: 10/15/2018 DISCHARGE DATE: 10/18/2018 FINAL DISCHARGE DIAGNOSES: 1. Metastatic breast cancer. 2. Sepsis secondary to methicillin-resistant Staphylococcus aureus bacteremia. 3. Polysubstance abuse. 4. Ileus. 5. Lactic acidosis. 6. Schizophrenia. 7. Anxiety disorder. HOSPITAL COURSE: Ms. Shook is a 48-year-old female with known metastatic breast cancer who presented to the ER with sepsis. The patient was noted to have a gluteal abscess on admission so General Surgery and ID were consulted. Cultures were taken of the abscess, and it ultimately grew out methicillin-resistant Staphylococcus aureus. The patient was treated for the gluteal abscess. Her oncologist Dr. Yi was consulted, and Dr. Dyson was consulted from a pulmonary standpoint. Despite aggressive therapy, the patient's clinical condition continued to deteriorate. Palliative Care was consulted for assistance with goals of care with the family. Ultimately, the family decided to make the patient a DNR level 1 and focus on comfort only. On 10/18/2018 at 14:53, the patient was pronounced . The patient's family members were present at the bedside at the time of . cc: Luzma Casey MD
== END 2018-10-18 14:53 | disposition expired | DRG 872 ==
LOC: ED 21:19 → SUATTDRO 10-15 05:44 → EDIPHOLD 10-15 05:44 → 4N 10-15 07:50 → UNDODISIN 10-17 15:05
PROVIDERS: ATTEND Internal Medicine
CPT/HCPCS: 71010; 71045; 71260; 74177; 80053; 81001; 82150; 83605; 83690; 83735; 85025; 85610; 85730; 87040; 87070; 87077; 87186; 93308; 94640; 94761; 94799; 96365; 96366; 96367; 96375; 96376; 99285; A9270; J1100; J1170; J1885; J2060; J2270; J2543; J3370; J7030; J7040; Q9967